=== PATIENT | female | born 1955 | race Caucasian/White ===

== ENCOUNTER 2024-02-24 19:44 | Inpatient (IN) | payer MEDICARE, OTHER, SELFPAY ==
[2024-02-24] VITALS (14 sets, daily range): BP systolic 114–146; BP diastolic 63–133; BMI 36.6
--- NOTE | 2024-02-24 15:31 | ED.GENMED ---
History of Present Illness
General
Chief Complaint: Fatigue
Source: patient
Exam Limitations: none
Time Seen by Provider: 02/24/24 15:08
Nursing documentation reviewed up to this point in time: agreed with
Travel History
Have you had any contact with someone who has COVID-19?: No
Do you have any symptoms of coronavirus? Fever > 100 degrees, chills, cough, shortness of breath, sore throat, loss of taste or smell, muscle aches, or headache?: No
History of Present Illness
History of Present Illness:
68-year-old female with past medical history of kidney stones presents to the ER for evaluation. She reports last week she had cold sweats and nausea and vomited 3 times over 24 hours. Since then she has had some nausea but was given nausea
medicine by her family doctor. She complains of feeling very exhausted and has pain rating from her right side lower rib area rating down her leg. Is not made worse or better with movement she denies any injury denies any lower extremity swelling.
She presents in the ER in rapid A-fib but denies any palpitations shortness of breath. She has no history of A-fib.
In Review of records patient was seen here July 2023 and presented with nausea abdominal pain chills and apparently had a 6 mm distal left ureteral calculus with hydro with complicated UTI infection. She did have cystoscopy and stone extraction
with stent at that time.
She denies any back pain.
Past History
Past History
ED Past Medical History: HTN
ED Past Surgical History: Orthopedic (3 months post hip fracture) and Other (bladder surgery)
Social History
Living: alone
Review of Systems
Review of Systems
All Other Systems: ROS reviewed and negative except as documented in HPI and ROS
Constitutional: Reports fatigue and chills
EENT: Reports no symptoms
Respiratory: Reports no symptoms
Cardiac: Reports no symptoms
ABD/GI: Reports nausea and vomiting
Musculoskeletal: Reports other (pain right side and right leg pain )
Skin: Reports no symptoms
Hematologic/Lymphatic: Reports no symptoms
Psychiatric: Reports no symptoms
Phy Exam
General Physical Exam
General Presentation: no apparent distress
General age: appears stated age
General Skin: warm and dry
General Habitus: normal
General Mental: alert
General Hydration: appears well hydrated
Course
Orders/Labs/Results
Orders:
Orders
02/24/24 Dinner
NPO
Allow oral meds: Yes
Allow clear liquids: Sips of Clears
NPO with Ice Chips: Yes
02/24/24 15:23
EKG [Electrocardiogram (*1)] Urgent
Reason for Study: Vertigo / Dizzy
EKG- Treatment ONCE
02/24/24 15:28
Complete Blood Count/With Diff Urgent
Comprehensive Metabolic Panel Urgent
02/24/24 15:34
0.9% Sodium Chloride 1000 ml [Nss] 1,000 ml IV BOLUS
02/24/24 15:44
Straight cath- Treatment ONCE
02/24/24 15:54
CT Abd/pel Without Iv Or Oral Urgent
Comment:
Reason For Exam: right side pain
02/24/24 15:56
Cardiac Monitoring- Treatment ONCE
0.9% Sodium Chloride 500 ml [Nss] 500 ml IV BOLUS
02/24/24 18:15
Lactic Acid Q4H
Comment: CANCEL 2nd LACTIC ACID IF 1st LACTIC ACID IS LESS THAN 2
Urinalysis Reflex To Culture Urgent
Date Specimen was Collected: 02/24/24
Time Specimen was Collected: 15:48
Urine Microscopic Reflex Cult Urgent
Blood Culture Q30M
CAYETANO Source: Blood/Venous
Specimen Description:
Blood Culture Q30M
CAYETANO Source: Blood/Venous
Specimen Description:
Urine Culture Urgent
CAYETANO Source: U
Specimen Description:
Date Specimen was Collected: 02/24/24
Time Specimen was Collected: 15:48
02/24/24 18:58
CefTRIAXone [Rocephin] 2,000 mg IV NOW STA
02/24/24 19:08
Sterile Water [Sterile Water For Injection] 20 ml .ROUTE .STK-MED
02/24/24 19:15
Gentamicin Sulfate [Gentamicin] 200 mg 0.9% Sodium Chloride [Nss] 50 ml IV NOW
02/24/24 19:28
Admit/Transfer Patient As Directed
Co-Sign Provider:
Level of Care: Inpatient admission
Assign to:: IMU- Intermediate Care
Physician / Group: Hospitalist
Diagnosis: Sepsis, infected kidney stone, new onset afib
Reason for Hospitalization: Sepsis, infected obstructing kidney stone
Expected length of stay greater than two midnights?: Yes
ELOS- Estimated Length of Stay in days: 2
I certify the patient meets the requirements for IP care: Yes
Dexamethasone Sod Phosphate [Decadron] 20 mg .ROUTE .STK-MED ONE
Lidocaine 2% [Xylocaine 2% Mdv] 20 ml .ROUTE .STK-MED ONE
Ondansetron Injectable [Zofran] 4 mg .ROUTE .STK-MED ONE
Propofol [Diprivan] 20 ml .ROUTE .STK-MED
02/24/24 19:29
Fentanyl Citrate/Pf [Sublimaze] 100 mcg .ROUTE .STK-MED ONE
Midazolam HCl [Versed] 2 mg .ROUTE .STK-MED ONE
02/24/24 19:31
Code Status As Directed
Resuscitation Status: Full Code
02/24/24 20:13
Acetaminophen [Tylenol/Feverall] 650 mg RECTAL Q4HPRN PRN
Acetaminophen [Tylenol] 650 mg PO Q4HPRN PRN
Docusate W/Senna [Senokot-S] 1 tablet PO DAILYPRN PRN
HYDROmorphone [Dilaudid] 0.5 mg IV Q4HPRN PRN
Lactated Ringers [Lr] 1,000 ml IV 75 mls/hr
Metoprolol [Lopressor] 5 mg IV Q4HPRN PRN
Ondansetron Injectable [Zofran] 4 mg IV Q6HPRN PRN
02/24/24 20:13
Echo 2D MMode Color/Doppler Routine
Reason for Study: atrial fibrillation
CARDIOLOGY CONSULT Routine
Consulting Provider: Mikhail Carey
Was physician already notified: Yes
Reason for consult: new onset afib
INFECTIOUS DISEASE CONSULT Routine
Consulting Provider: Vishal Santamaria
Was physician already notified: Yes
Activity As Directed
Activity Level: With Assistance
Intake/ Output As Directed
Frequency: Per unit guidelines
Vital Signs As Directed
Frequency: Per unit guidelines
Pulse Ox/spot Check [RESP] Routine
Quantity: 1
Special Instructions: pulse oximetry on admision then every shift if on oxygen
call if oxygen saturation < ___ %
DX Deep Vein Thrombosis Video Routine
02/24/24 21:06
Lactic Acid Q4H
Comment: repeat q4 hours x 4 or until less than 2 mmol/L
02/24/24 22:00
Diphenhydramine [Benadryl] 50 mg PO HS
02/25/24 00:13
Lactic Acid Q4H
Comment: repeat q4 hours x 4 or until less than 2 mmol/L
02/25/24 04:13
Lactic Acid Q4H
Comment: repeat q4 hours x 4 or until less than 2 mmol/L
02/25/24 06:00
Complete Blood Count/No Diff IN AM
02/25/24 08:00
Multivitamin [Theragran] 1 tablet PO DAILY
02/25/24 08:13
Lactic Acid Q4H
Comment: repeat q4 hours x 4 or until less than 2 mmol/L
02/25/24 18:00
Atorvastatin [Lipitor] 10 mg PO QPM
CefTRIAXone [Rocephin] 2,000 mg IV Q24H
Enoxaparin Sodium [Lovenox] 40 mg SC QPM
Tolterodine Extended Release [Detrol LA] 4 mg PO QPM
Abnormal Lab Results
02/24/24 02/24/24
15:28 18:15
WBC 28.5 H 10^3/uL
(4.8-10.8)
RBC 4.07 L 10^6/uL
(4.20-5.40)
Hct 36.7 L %
(37.0-47.0)
MCH 31.7 H pg
(27.0-31.0)
Abs Immat Gran (auto) 0.5 H 10^3/uL
(0-0.05)
Absolute Neuts (auto) 25.0 H 10^3/uL
(1.4-6.5)
Absolute Monos (auto) 1.1 H 10^3/uL
(0.1-0.6)
Immature Gran % 1.7 H %
(0-0.5)
Neutrophils % 87.8 H %
(42.2-75.2)
Lymphocytes % 6.1 L %
(20.5-51.1)
Sodium 131 L mmol/L
(135-145)
Potassium 3.4 L mmol/L
(3.5-5.1)
Chloride 94 L mmol/L
(98-107)
BUN 60 H mg/dl
(7-17)
Creatinine 1.4 H mg/dL
(0.6-1.0)
Glucose 139 H mg/dl
(70-99)
Calcium 10.7 H mg/dl
(8.4-10.2)
AST 44 H U/L
(14-36)
ALT 56 H U/L
(0-35)
Alkaline Phosphatase 223 H U/L
(38-126)
Albumin 3.1 L g/dl
(3.5-5.0)
Urine Ketones Trace A
(Negative)
Ur Occult Blood Reflex 2+ A
(Negative)
Urine Nitrite (Reflex) Positive A
(Negative)
Leukocyte Esterase Rfl 2+ A
(Negative)
Urine RBC 3-6 A /HPF
(0-2)
Urine WBC (Reflex) 90-100 A /HPF
(0-5)
Urine Bacteria (Reflex) Moderate A
(Negative)
02/24/24 15:28
02/24/24 15:28
Vital Signs
Initial and Last Documented VS:
Initial Vital Signs
Temp Pulse Resp BP Pulse Ox
97.7 F 83 18 145/86 96
02/24/24 13:38 02/24/24 13:38 02/24/24 13:38 02/24/24 13:38 02/24/24 13:38
Last Documented Vital Signs
Temp Pulse Resp BP Pulse Ox
97.8 F 161 20 133/76 96
02/24/24 22:07 02/24/24 21:30 02/24/24 21:30 02/24/24 21:15 02/24/24 21:30
MDM/Problems Addressed
Differential Diagnosis Includes:
Not limited to pyelonephritis renal colic UTI rapid A-fib
MDM/Problems Addressed:
Patient is 68-year-old female who presents for multiple complaints. She reports a week ago she had nausea cold sweats and since then has had fatigue and extreme exhaustion. She describes pain in the right side she points to the right side of her
abdomen below her ribs which radiates down her left leg. No injury no lower extremity swelling. She denies any UTI symptoms. Upon my exam she was found to be in rapid A-fib however asymptomatic with no complaints of palpitations or shortness of
breath chest pain. Blood pressure stable. Patient is afebrile however white count elevated at 28.5 patient appears very dry on exam.
Her BUN is 60 creatinine is 1.40 which is new GFR is 40. Lactic of blood cultures ordered. LFTs mildly elevated however patient is not tender on exam to the right upper quadrant.
No history of A-fib or cardiac disease. Patient is document was here in July 2023 for UTI with stone she had cystoscopy stone extraction and stent.
Case d/c with ED physician will treat her dehydration with fluids (septic fluids for a total of 500 ml NSS ) .
With vague complaints of right side pain will order non contrast CT .
1855: Patient remains awake alert no acute distress still tachycardic in the 130s with stable blood pressure. 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
severe perinephric fluid suggesting forniceal rupture due to a 7 mm distal right ureteral stone. She has an an obvious UTI . d/c w/ urology DR Flaherty as discussed I ordered Rocephin and gentamicin
1905: OR ready for patient at this time will send patient up urology aware that medication was ordered but not given yet.
Discussed all results and plan of care to OR with patient
Chronic conditions affecting care:
previous UTI/stone /stone extraction
*Critical Care Note
Total Time (30-74mins, 75-104mins- exclusive of procedures): Not Applicable
comment:
Critical care statement: A total of 30minutes of critical care time was provided for this patient. This includes management of unstable vital signs, evaluation of the patient at bedside, reviewing the patient's pertinent medical records, discussion
with consultants, review of old EKGs and review of pertinent medical records. This time with separate from time utilized to perform the aforementioned documented procedures
ED Attending Note
-
Portions of this chart may have been created with voice recognition software.� Occasional wrong word or��sound alike� substitutions may have occurred due to the inherent limitations of voice recognition software.
Discharge Plan
Departure
Patient Disposition: OR
Date of Disposition: 02/24/24
Time of Disposition: 19:02
Admit to: ICU
Admit to doctor: hospitalist
Presentation/result/management discussed w/ accepting MD/DO: Hospitalist
Patient with high blood pressure during this ER visit?: Yes
Condition: Fair
Covid-19: Not Applicable
Discharge Problem:
infected ureteral stone, Sepsis, Atrial fibrillation
Interventions
Interventions:
*Risk Screen - Suicide Last Done: 02/24/24 13:42
*General Assessment Last Done: 02/24/24 13:42
*Neglect/Abuse Screening Last Done: 02/24/24 13:42
ED- Fall Risk Assessment Last Done: 02/24/24 15:30
*ED COVID-19 Vaccine History Last Done: 02/24/24 13:42
*Nursing Disposition Last Done: 02/24/24 19:25
Discharge Date and Time
Discharge Date/Time: 02/24/24 19:25
[2024-02-24] MEDS: NSS 1000 IV (15:34)
[2024-02-24 15:36] LABS: % Basophils 0.5 % (0-2); % Eosinophils 0.1 % (0-6); % Immature Granulocytes 1.7 % (0-0.5); % Lymphocytes 6.1 % (20.5-51.1); % Monocytes 3.8 % (1.7-9.3); % Neutrophils 87.8 % (42.2-75.2); Absolute Basophils 0.1 10^3/uL (0-0.2); Absolute Immature Granulocytes 0.5 10^3/uL (0-0.05); Absolute Lymphocytes 1.7 10^3/uL (1.2-3.4); Absolute Monocytes 1.1 10^3/uL (0.1-0.6); Hematocrit 36.7 % (37.0-47.0); Hemoglobin 12.9 g/dL (12.0-16.0); Mean Corp Hgb Conc. 35.1 g/dL (33.0-37.0); Mean Corpuscular Hgb 31.7 pg (27.0-31.0); Mean Corpuscular Volume 90.2 fL (81.0-99.0); Mean Platelet Volume 10.3 fL (7.4-10.4); Nucleated Red Blood Cells % 0 %; Platelet Count 284 10^3/uL (130-400); Red Blood Cell Count 4.07 10^6/uL (4.20-5.40); Red Cell Dist. Width 13.3 % (11.5-14.5); White Blood Cell Count 28.5 10^3/uL (4.8-10.8)
[2024-02-24 15:50] LABS: ALT (SGPT) 56 U/L (0-35); AST (SGOT) 44 U/L (14-36); Albumin 3.1 g/dl (3.5-5.0); Alkaline Phosphatase 223 U/L (38-126); Blood Urea Nitrogen 60 mg/dl (7-17); Calcium 10.7 mg/dl (8.4-10.2); Carbon Dioxide 27 mmol/L (22-30); Chloride 94 mmol/L (98-107); Estimated Creatinine Clearance 40 ml/min; Glucose 139 mg/dl (70-99); Potassium 3.4 mmol/L (3.5-5.1); Sodium 131 mmol/L (135-145); Total Bilirubin 1.2 mg/dl (0.2-1.3); Total Protein 6.3 g/dl (6.3-8.2); eGFR 40.73
--- NOTE | 2024-02-24 16:00 | EDRN ---
the pt is currently still in Afib in the 120-140's, this RN notified the provider Bere Boss [employer] again, VS WNL, will continue to monitor the pt closely
[2024-02-24 18:29] LABS: Urine Albumin Trace (Neg - Trace); Urine Bilirubin Negative (Negative); Urine Character Slightly Cloudy (Clear); Urine Color Yellow; Urine Glucose Negative (Negative); Urine Ketone Trace (Negative); Urine Leukocyte 2+ (Negative); Urine Nitrite Positive (Negative); Urine Occult Blood 2+ (Negative); Urine Urobilinogen Negative (Neg - 1+)
[2024-02-24 18:37] LABS: Urine Squamous Cell 0-2 /LPF (Few)
[2024-02-24 18:38] LABS: Urine Bacteria Moderate (Negative); Urine White Cell 90-100 /HPF (0-5)
[2024-02-24 18:41] LABS: Lactic Acid 1.3 mmol/L (0.7-2.0)
[2024-02-24] MEDS: ROCEPHIN 2000 MG IV (19:10)
--- NOTE | 2024-02-24 19:12 | HPS.HSE ---
Family Physician
-
Family Physician: Grabiel Hernandez
Chief Complaint
-
abdominal pain with nausea
History of Present Illness
This is a 68 y.o female with history of malrotated right kidney and left nephrolithiasis who presents to ED with non specific abdominal pain and nausea. History was brief as patient going to OR.
She had episode of cold sweats, nausea and vomited 3 times in the last 24 hours. Feels exhausted. Found to be in atrial fibrillation on arrival in ED but denies any prior history. Denies lightheaded, dizziness, palpitations. Denies any lower
extremity swelling, shortness of breath or dyspnea on exertion. She takes aspirin prophylactically but denies prior history of CAD or CVA.
She is known to have had a 6 mm distal left ureteral calculus with complicated UTI in Jul 2023 with cystoscopy and stone extraction.
In ED she was in rapid atrial fibrillation but hemodynamically stable. She was afebrile, BP 136/71, p 141, R 16 and normal oxygenation on RA. ECG, afib R 141. No acute ischemia. CT A/P with moderate right hydronephrosis and severe perinephric
fluid suggesting forniceal rupture due to a 7 mm distal right ureteral stone. Possible atelectasis vs lower lobe PNA. Marked leukocytosis and positive U/A.
Medical History
Past Medical History
Past Medical History: Reports HTN
Past Surgical History: Reports Urological
Social History
Tobacco: Non-smoker
Alcohol: None
Drug: None
Personal:
Living: With Family
Employment: Employed
Family History
Family History: Not pertinent
Allergies / Home Medications
Allergies reflects when Allergies were last updated in [employer].
Home Medications with original date entered in [employer]
Allergy/Medication List:
Allergies
Allergy/AdvReac Type Severity Reaction Status Date / Time
sulfamethoxazole Allergy dizzy Verified 02/24/24 13:44
[From Bactrim]
trimethoprim [From Bactrim] Allergy dizzy Verified 02/24/24 13:44
Home Medications
calcium carbonate 600 mg-vitamin D3 5 mcg (200 unit) capsule (Calcium 600 + D(3)) 1 ea PO BID Supplement 11/12/11
flaxseed oil 1,000 mg capsule 1,000 mg PO QPM Supplement 11/12/11
simvastatin 20 mg tablet 20 mg PO QPM High Cholesterol 11/12/11
Lactobac no.2-Bifidobac no.1-S. thermo 112.5 billion cell capsule (Visbiome) 1 cap PO DAILY Supplement 08/05/23
ascorbic acid (vitamin C) 500 mg tablet (Vitamin C With Bety Hips) 500 mg PO BID Supplement 08/05/23
aspirin 81 mg tablet,delayed release 81 mg PO QPM Blood Clot Prevention/Tx 08/05/23
cranberry extract 650 mg capsule (Theracran) 650 mg PO DAILY Supplement 08/05/23
darifenacin 15 mg tablet,extended release 24 hr 15 mg PO QPM Urinary Issue 08/05/23
diphenhydramine HCl 25 mg tablet (Sominex) 12.5 mg PO HS Sleep 08/05/23
estradiol 0.01% (0.1 mg/gram) vaginal cream 1 g vaginal TUSA Hormonal Agent 08/05/23
glucosamine-chondroitin 500 mg-400 mg tablet (Cosamin DS) 1 tab PO QPM Supplement 08/05/23
hydrochlorothiazide 50 mg tablet 50 mg PO DAILY Blood Pressure 08/05/23
therapeutic multivitamin 1 tab PO DAILY Supplement 08/05/23
levofloxacin 750 mg tablet 750 mg PO DAILY #5 tabs 08/06/23
phenazopyridine 200 mg tablet (Pyridium) 200 mg PO TID PRN urinary pain #14 tabs 08/06/23
Review of Systems
-
History Source: Patient
Constitutional: Reports Night Sweats and Chills
EENT: Reports No Symptoms
Respiratory: Reports No Symptoms
Cardiac: Reports No Symptoms
Abdomen/GI: Reports Abdominal Pain, Nausea and Vomiting
: Reports Dysuria
Musculoskeletal: Reports No Symptoms
Skin: Reports No Symptoms
Neurological: Reports No Symptoms
Endocrine: Reports No Symptoms
Hematologic/Lymphatic: Reports No Symptoms
Psych: Reports No Symptoms
Physical Exam
Vital Signs
Vital Signs
Temp Pulse Resp BP Pulse Ox
97.1 F 153 25 138/116 92
02/24/24 17:09 02/24/24 19:00 02/24/24 19:00 02/24/24 19:00 02/24/24 18:45
Physical Exam
General: Well Developed, Well Nourished, Comfortable and Conversant
HEENT: NormoCephalic, Anicteric and Moist mucous membranes
Respiratory: Clear
Cardiac: S1/S2, Irregular Rhythm and Tachycardia
Breast: Deferred by me
GI: Soft, Non Distended and Normal Bowel Sounds
Rectal: Deferred by Provider
Genito-urinary: Deferred by me
Musculoskeletal: No Clubbing, No Cyanosis and No Edema
Skin: Warm
Neuro: AO x 3
Hematologic/Lymphatic: No Lymphadenopathy
Psych: Calm
Laboratory Results
-
02/24/24 15:28
02/24/24 15:28
Laboratory Results
Lactic Acid 1.3 mmol/L (0.7-2.0) 02/24/24 18:15
Total Bilirubin 1.2 mg/dl (0.2-1.3) 02/24/24 15:28
AST 44 U/L (14-36) H 02/24/24 15:28
ALT 56 U/L (0-35) H 02/24/24 15:28
Alkaline Phosphatase 223 U/L (38-126) H 02/24/24 15:28
Data Reviewed
-
CT Scan: Report Reviewed by me
Medical Tests (Nuc Med, Echo, EKG etc): Image Personally Visualized and interpreted and Report Reviewed by me
Lab Data: Labs Reviewed by me
Old Records: Reviewed
Impression/Plan
-
IMPRESSION:
PLAN:
1. Right [id number] - Recurrent nephrolithiasis complicated by infection and possible forniceal rupture. Sepsis with uncontrolled afib, lactic acidosis and marked leukocytosis. Currently hemodynamically stable. Urology aware and
patient is going to OR from ED.
- admitting to IMU post operatively
- s/p 1.5 L resuscitation in Ed. Will give an additional 1 L bolus
- blood and urine cultures sent, given ceftiaxone/gentamycin in ED. Will continue Ceftriaxone 2g daily for now. ID consultation
- npo for now, maintenance fluid post or, advance diet in am
- monitor I/O
2. Sepsis - Urosepsis as above. Possible atelectasis vs PNA on CT scan. However patient without pulmonary symptoms.
- continue IV ceftriaxone as above
- incentive spirometry and pain control
3. Uncontrolled atrial fibrillation - No prior history. [id number] = 3.
- suspected induced by sepsis. Resuscitation as above. IV fluids, antibiotics as stated as above
- rate control with IV metoprolol for now, start on IV diltiazem if rapid post operatively and remains hemodynamically stable (d/w cardiology)
- echo in am
- cardiology consult
- holding AC pending surgical procedure
4. ROSALINA - sepsis, mild r sided hydro
- monitor i/o and cr, avoid nephrotoxins
- correction of sepsis as above
While off AC DVT PPX with lovenox sq
Full Code
--- NOTE | 2024-02-24 20:09 | W.IMMPOSTOP ---
Surgical Immed Post Op Note
-
Primary Surgeon:
Reynold
Pre-op Diagnosis: right ureteral stone + sepsis + pelvic kidney
Post-op Diagnosis: same
Procedure Performed: cysto, stone manipulation, stenting, RGP
Anesthesia Type: gen
Specimen / Cultures: none
Estimated Blood Loss: none
Complications: none
Operative Findings: distal right ureteral stone/right hydroureteronephrosis/pelvic kidney
Tubes: 6 Fr 20 cm right JJ ureteral stent; Cooper
sister, Faisal, alerted via phone post-op
[2024-02-24] MEDS: GENTAMICIN 55 MG IV (20:31)
[2024-02-24 21:26] LABS: Lactic Acid 1.6 mmol/L (0.7-2.0)
[2024-02-24] MEDS: LR 1000 IV (21:31)
[2024-02-24] MEDS: NSS 250 IV (21:57)
[2024-02-24] MEDS: ZOFRAN 4 MG IV (21:58)
--- NOTE | 2024-02-24 22:00 | PTCARENOTE ---
Rec'd pt from OR s/p ureteral stenting, drowsy but arousable and conversive. No c/o pain. YOUNG. Oriented/cooperative. Afebrile, AFIB 130-150 on monitor. New order noted for Cardizem gtt and 500ml NSS bolus. PIV X1. 3L nc, 97%. When off O2, pt desat
88%. Decreased breath sounds. Pt vomited upon arrival to ICU, Zofran given with relief. 18F laurent from OR, draining clear yellow urine. Pt states TUBE CUTTER pessary is in place and was changed in December/January. No skin issues. Oriented to ICU. Will monitor.
[2024-02-24] MEDS: CARDIZEM 125 IV (22:01)
[2024-02-24] MEDS: BENADRYL 50 MG PO (23:55)
[2024-02-25] VITALS (24 sets, daily range): BP systolic 94–150; BP diastolic 52–94; BMI 36.7
[2024-02-25 02:27] LABS: Hematocrit 33.9 % (37.0-47.0); Hemoglobin 12.2 g/dL (12.0-16.0); Mean Corpuscular Hgb 31.9 pg (27.0-31.0); Mean Corpuscular Volume 88.5 fL (81.0-99.0); Platelet Count 300 10^3/uL (130-400); Red Blood Cell Count 3.83 10^6/uL (4.20-5.40); Red Cell Dist. Width 13.7 % (11.5-14.5); White Blood Cell Count 29.4 10^3/uL (4.8-10.8)
--- NOTE | 2024-02-25 02:30 | PTCARENOTE ---
Pt c/o chest pain unable to rate. Unsure iif related to hiccups she was having. Troponin <0.012, EKG in chart. Will monitor.
[2024-02-25 02:45] LABS: INR 1.27; PT 15.8 Sec (11.4-14.6)
[2024-02-25 02:47] LABS: Blood Urea Nitrogen 46 mg/dl (7-17); Calcium 9.3 mg/dl (8.4-10.2); Carbon Dioxide 26 mmol/L (22-30); Chloride 101 mmol/L (98-107); Estimated Creatinine Clearance 56 ml/min; Glucose 150 mg/dl (70-99); Potassium 3.4 mmol/L (3.5-5.1); Sodium 134 mmol/L (135-145); eGFR > 60.00
[2024-02-25 02:52] LABS: Troponin I < 0.012 ng/ml
[2024-02-25 03:18] LABS: TSH Reflex To Free T4 0.88 uIU/ml (0.47-4.68)
[2024-02-25] MEDS: ZOFRAN 4 MG IV (04:30)
--- NOTE | 2024-02-25 04:52 | PTCARENOTE ---
Pt vomiting dark brown/green unmeasurable amount, estimated about 250-300ml, along with intermittent hiccups overnight. Pt states she has not had a BM since one week ago 'last Tuesday'. Zofran given IV as ordered PRN. Will follow up with provider
regarding bowel program/suppository.
[2024-02-25] MEDS: KCL 260 MEQ IV (06:41)
--- NOTE | 2024-02-25 06:42 | W.PN.URO.CBU ---
Today's Communication / Plan
-
keep Cooper while Is&Os are of paramount importance
Assessment / Plan
-
critically ill, but improving
Diagnosis
-
Date of Service: February 25, 2024
-
Patient Diagnosis:
Right ureteral stone: 7 mm, obstructing
Urosepsis
emergently to OR to alleviate obstruction by placement of a right ureteral stent on 02/24/24 ~ 730 PM
Post Op Day: 1
Subjective
-
asleep
Objective
-
Vital Signs
Temp Pulse Resp BP Pulse Ox
97.7 F 106 17 117/76 96
02/25/24 03:26 02/25/24 06:15 02/25/24 06:15 02/25/24 05:45 02/25/24 06:15
Intake and Output
02/23/24 02/24/24 02/25/24
06:59 06:59 06:59
Intake Total 2065.0 / 2065.0
Output Total 700 / 700
Balance 1365.0 / 1365.0
Intake:
IV fluids (Total) 2015.0 / 2015.0
CARDIZEM 125mg/125ml 115.0 / 115.0
NORMAL SALINE 1300 / 1300
Normosal 600 / 600
IV piggybacks 50 / 50
Output:
Urine, Cooper 700 / 700
Laboratory Results
02/25/24 02:16
02/25/24 02:16
Physical Exam
-
General - no acute distress; asleep sitting in bed
Genitalia - Cooper
--- NOTE | 2024-02-25 07:51 | CON.ID ---
Consultation
-
Date/Time Consultation Requested: 02/24/20242012
Date/Time Consultation Performed: 02/25/2024 0721
Requesting Provider: Dr. Rosenthal
Performing Provider: Dr. Santamaria
Reason for Consultation: Leukocytosis; complicated UTI
Chief Complaint / Past History
History of Present Illness
Elsie Bañuelos is a 68-year-old female being evaluated regarding a complicated urinary tract infection with obstructive uropathy. History is obtained from chart review, along with patient interview.
The patient reports a prior history of nephrolithiasis and notes that she was in her usual state of health until approximately 9 to 10 days ago when she developed acute onset of sweats, extreme nausea and some right leg discomfort. She called her
PCP and received some nausea medicine which helped, but did make her drowsy. Over the subsequent week she continued to do fair, but yesterday her sister came by and saw her and advised her to go to the emergency room for further evaluation.
Workup in the emergency room revealed a significant leukocytosis, along with ROSALINA and a transaminitis. A CT of the abdomen was performed and revealed an malrotated right kidney with moderate hydronephrosis and fluid surrounding the kidney suggesting
a forniceal rupture. A 7 mm distal ureteral stone was also noted. The patient was taken to the OR, and a double-J stent was placed.
Currently she is feeling somewhat improved. Over the past week, she denies significant fevers, but has had the ongoing discomfort in the right leg area. She denied any dysuria or hematuria she did admit to significant constipation.
Past History
Additional Past Medical History:
HTN
Dyslipidemia
Pelvic organ prolapse with pessary
Hx UTI
Additional Past Surgical History:
Right femur judith placement
Bladder surgery
Allergy History:
sulfamethoxazole [From Bactrim] Allergy (Verified 02/24/24 13:44)
'dizzy'
Medications Reviewed: Yes
Current Antibiotics:
Rocephin 2 g IV every 24 hours
Social History
Tobacco: Non-Smoker
Alcohol: None
Drug: None
Personal: Single
Living: Alone
Employment: Retired
Family History
Family History: Not Pertinent
Review of Systems
Vital Signs
Temp Pulse Resp BP Pulse Ox
97.7 F 106 17 117/76 96
02/25/24 07:51 02/25/24 06:15 02/25/24 06:15 02/25/24 05:45 02/25/24 06:15
Physical Exam
Physical Exam
Constitutional: No Acute Distress, Comfortable and Non-toxic
Eyes: Pupils Equal, Pupils Round, No Conjunctival Hemorrhage and Sclera Anicteric
Oral: No Thrush and No Ulcers
Cardiovascular: S1/S2; Negative S3/S4 or Murmur
Pulmonary: Clear; Negative Wheezes, Rales or Rhonchi
Gastrointestinal: Soft, Non Tender and Non Distended
Extremities: Edema; Negative Cyanosis or Erythema
Skin: Warm and Dry; Negative Rash or Jaundice
Neurological: Awake and Alert
Psychological: Calm
.
Lab / Diagnostic Study Results
02/25/24 02:16
02/25/24 02:16
Abs Immat Gran (auto) 0.5 10^3/uL (0-0.05) H 02/24/24 15:28
Absolute Neuts (auto) 25.0 10^3/uL (1.4-6.5) H 02/24/24 15:28
Absolute Lymphs (auto) 1.7 10^3/uL (1.2-3.4) 02/24/24 15:28
Absolute Monos (auto) 1.1 10^3/uL (0.1-0.6) H 02/24/24 15:28
Absolute Basos (auto) 0.1 10^3/uL (0-0.2) 02/24/24 15:28
Immature Gran % 1.7 % (0-0.5) H 02/24/24 15:28
Neutrophils % 87.8 % (42.2-75.2) H 02/24/24 15:28
Lymphocytes % 6.1 % (20.5-51.1) L 02/24/24 15:28
Monocytes % 3.8 % (1.7-9.3) 02/24/24 15:28
Eosinophils % 0.1 % (0-6) 02/24/24 15:28
Basophils % 0.5 % (0-2) 02/24/24 15:28
PT 15.8 Sec (11.4-14.6) H 02/25/24 02:16
INR 1.27 02/25/24 02:16
Lactic Acid Cancelled 02/25/24 08:13
Ur Squamous Epith Cells 0-2 /LPF (Few) 02/24/24 18:15
Microbiology Results
Micro:
02/24/24 18:15 Urine Culture - Pending
Urine
02/24/24 18:15 Blood Culture - Pending
Blood/Venous
02/24/24 18:15 Blood Culture - Pending
Blood/Venous
Imaging:
02/24/2024 CT abdomen/pelvis: Moderate right hydronephrosis and severe perinephric fluid suggesting forniceal rupture due to a 7 mm distal right ureteral stone. Many additional tiny nonobstructing right renal stones are noted. A subcentimeter
hypodense left renal lesion is likely benign proteinaceous cyst. Moderate right lower lobe consolidation suggesting either atelectasis or pneumonia.
Assessment / Plan
Leukocytosis
Complicated urinary tract infection
Suspected pyelonephritis
Obstructive uropathy
Renal insufficiency; improved
Transaminitis
HTN
Dyslipidemia
Pelvic organ prolapse with pessary
Hx UTI
Recommendations:
Continue with empiric ceftriaxone for today.
Urine cultures are pending, as are blood cultures; will await results.
Monitor white count and temperature curve.
Follow for clinical improvement.
Repeat blood cultures for temperature greater than 100.5 degrees.
Continue supportive measures.
--- NOTE | 2024-02-25 07:59 | W.PN.HOSP.TC ---
Today's Communication/Plan
-
Continue Cardizem Drip -- it it needs to be titrated overnight, then transfer back to IMU
Continue antibiotics
Continue Heparin Drip
Transfer to telemetry
Assessment / Plan
Assessment / Plan
Physical Exam
General: Not in acute distress.
HEENT: Normocephalic
Respiratory: Clear to Auscultation Bilaterally
Cardiac: S1/S2, Irregular Rhythm and Regular Rate
GI: Soft, Non Distended and Normal Bowel Sounds
Musculoskeletal: No Cyanosis and No Edema
Skin: Warm. Dry.
Neuro: AAO x 3
Psych: Calm

Assessment/Plan
#Presentation with non-specific abdominal pain and nausea
#Right efjef-mpmwvm-ladvomeljqny - status post cystoscopy with manipulation of obstructing right ureteral calculus, right ureteral stenting (6-Amharic, 20 cm) and right retrograde pyelography on February 24, 2024
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
- Okay to transfer from IMU to tele
- blood and urine cultures sent -- follow-up
- monitor I/O
#Sepsis - Urosepsis as above. Possible atelectasis vs PNA on CT scan. However patient without pulmonary symptoms.
#Complicated Urinary Tract Infection
#History of complicated UTI with pyelonephritis and left distal stone with stent and extraction
#Leukocytosis
#Lactic Acidosis - RESOLVED
- continue IV ceftriaxone as above
- incentive spirometry and pain control
#Uncontrolled atrial fibrillation - No prior history. [id number] = 3.
- suspected induced by sepsis. Resuscitation as above. IV fluids, antibiotics as stated as above
- continue cardizem drip -- for now non-titratable is okay but if it needs to be titrated, then patient will need to be transferred back to IMU
- echocardiogram
- cardiology consult
- Heparin Drip for the A-Fib for now
- Will transition to PO anticoagulation and rate control soon
#ROSALINA - sepsis, mild r sided hydro - IMPROVING
- monitor i/o and cr, avoid nephrotoxins
- correction of sepsis as above
DVT PPx: Heparin Drip
Full Code
Anticipated Discharge: 24 - 48 hours
Subjective/Interval History
-
Date of Service: February 25, 2024
Patient was seen and examined. She reported no new significant symptoms or complaints.
Objective Data
-
Labs:
Laboratory Results
02/25/24
02:16
WBC 29.4 H
Hgb 12.2
Hct 33.9 L
Plt Count 300
PT 15.8 H
INR 1.27
Sodium 134 L
Potassium 3.4 L
Chloride 101
Carbon Dioxide 26
BUN 46 H
Creatinine 1.0
Glucose 150 H
Calcium 9.3
Vital Signs:
Vital Signs
Temp Pulse Resp BP Pulse Ox
97.7 F 106 17 117/76 96
02/25/24 07:51 02/25/24 06:15 02/25/24 06:15 02/25/24 05:45 02/25/24 06:15
I&O
02/24/24 02/25/24 02/26/24
06:59 06:59 06:59
Intake Total 2065.0 / 2065.0
Output Total 700 / 700
Balance 1365.0 / 1365.0
[2024-02-25] MEDS: THERAGRAN 1 TABLET PO (08:36)
[2024-02-25] MEDS: DULCOLAX 10 MG RECTAL (08:36)
--- NOTE | 2024-02-25 09:00 | PTCARENOTE ---
Received pt @ change of shift. Ox3, denies pain. Controlled afib on monitor. Weaned to RA, SpO2 95%, no s/s of resp distress. +BS, abd round/obese. NPO status maintained. Pt. reports constipation, admin suppos- see MAR. Pt w cont small BM. Cooper in
place draining clear/yellow urine. Assisted x 1 w RW to BSC and then OOB to chair. Tolerating chair position. Instructed on how to report care concerns and call house in reach.
[2024-02-25] MEDS: LR 1000 IV ×2 (09:42→23:55)
[2024-02-25 10:53] LABS: Hematocrit 32.9 % (37.0-47.0); Hemoglobin 11.4 g/dL (12.0-16.0); Mean Corp Hgb Conc. 34.7 g/dL (33.0-37.0); Mean Corpuscular Hgb 31.7 pg (27.0-31.0); Mean Corpuscular Volume 91.4 fL (81.0-99.0); Mean Platelet Volume 10.8 fL (7.4-10.4); Platelet Count 241 10^3/uL (130-400); Red Cell Dist. Width 13.6 % (11.5-14.5); White Blood Cell Count 27.4 10^3/uL (4.8-10.8)
--- NOTE | 2024-02-25 11:43 | CON.CAR ---
Addendum entered and electronically signed by Mikhail Carey MD 02/25/24 13:51:
68 yo female with PMH of HTN, hyperlipidemia, prior kidney stone is admitted with obstructing right ureteral stone, s/p emergent stent placement 02/23. Also UTI. In this setting, she developed A fib with RVR. Exam with irregular rhythm, no murmurs,
no edema. Tele: A fib 120s-->80-90s.
Continue diltiazem drip at 15. Assess for transition to PO tomorrow.
CHADS2-VASC = 3. Discussed with urology. Heparin drip started today. Eventual transition to OAC: she prefers Xarelto.
Original Note:
Consultation
Consultation Request
Date/Time Consultation Requested: 02/25/2024 0800
Date/Time Consultation Performed: 02/25/2024 1100
Requesting Provider: Dr. Rosenthal
Performing Provider: Dr. Carey
Reason for Consultation: AF
Medical History
-
Chief Complaint: Nausea, abdominal pain, leg pain
History of Present Illness:
Patient is a 68-year-old woman with past medical history of hypertension, hyperlipidemia,prior kidney stones per her report who presented to the emergency room for evaluation of episodes of cold sweats and nausea which she had been having for
approximately 1 week. It had worsened over the last 24 hours. She also was having issues of feeling exhausted and pain in her right side which would radiate down her leg. In the emergency room she was noted to be in atrial fibrillation with RVR.
She had denied chest pain or shortness of breath at that time. This has been treated with IV diltiazem. She has no prior history of atrial fibrillation.Workup for her abdominal pain revealed a right ureteral stone 7 mm which was obstructing.
There was concern for urosepsis as well. She was emergently taken to the OR to alleviate obstruction with placement of a right ureteral stent. Prior to her acute illness she denies any chest pain shortness of breath or palpitations.
Past Medical History
Past Medical History: Other (History of right pelvic kidney, hypertension, hyperlipidemia, prior kidney stone)
Past Surgical History: Urological (prior kidney stones )
Social History
Tobacco: Non-Smoker
Drug: None
Family History
Family History: Reviewed & Not Pertinent
Allergies / Home Medications
Allergy/AdvReac Type Severity Reaction Status Date / Time
sulfamethoxazole Allergy dizzy Verified 02/24/24 13:44
[From Bactrim]
trimethoprim [From Bactrim] Allergy dizzy Verified 02/24/24 13:44
�Medication �Instructions �Recorded �Confirmed �Type
calcium carbonate 600 mg-vitamin 1 ea PO BID Supplement 11/12/11 02/24/24 History
D3 5 mcg (200 unit) capsule
(Calcium 600 + D(3))
flaxseed oil 1,000 mg capsule 1,000 mg PO QPM Supplement 11/12/11 02/24/24 History
simvastatin 20 mg tablet 20 mg PO QPM High Cholesterol 11/12/11 02/24/24 History
Lactobac no.2-Bifidobac no.1-S. 1 cap PO DAILY Supplement 08/05/23 02/24/24 History
thermo 112.5 billion cell capsule
(Visbiome)
ascorbic acid (vitamin C) 500 mg 500 mg PO BID Supplement 08/05/23 02/24/24 History
tablet (Vitamin C With Bety Hips)
aspirin 81 mg tablet,delayed 81 mg PO QPM Blood Clot 08/05/23 02/24/24 History
release Prevention/Tx
darifenacin 15 mg tablet,extended 15 mg PO QPM Urinary Issue 08/05/23 02/24/24 History
release 24 hr
estradiol 0.01% (0.1 mg/gram) 1 g vaginal TUSA Hormonal Agent 08/05/23 02/24/24 History
vaginal cream
glucosamine-chondroitin 500 mg-400 1 tab PO QPM Supplement 08/05/23 02/24/24 History
mg tablet (Cosamin DS)
hydrochlorothiazide 50 mg tablet 50 mg PO DAILY Blood Pressure 08/05/23 02/24/24 History
therapeutic multivitamin 1 tab PO DAILY Supplement 08/05/23 02/24/24 History
diphenhydramine HCl 50 mg capsule 50 mg PO HS 02/24/24 02/24/24 History
(Unisom SleepGels)
docusate sodium 100 mg capsule 100 mg PO DAILY PRN constipation 02/24/24 02/24/24 History
ibuprofen 125 mg-acetaminophen 250 2 tab PO Q6H mild pain 02/24/24 02/24/24 History
mg tablet (Dual Action Pain
Reliever)
polyethylene glycol 3350 17 gram 17 g PO ONCE 02/24/24 02/24/24 History
oral powder packet (Miralax)
Review of Systems
-
History Source: Patient
Constitutional: No Symptoms
EENT: No Symptoms
Respiratory: No Symptoms
Cardiac: No Symptoms
Abdomen/GI: Abdominal Pain (some R side discomfort)
Musculoskeletal: Muscle Pain (occ R leg discomfort)
Neurological: No Symptoms
Physical Exam
Vital Signs
Temp Pulse Resp BP Pulse Ox
97.7 F 106 17 117/76 96
02/25/24 07:51 02/25/24 06:15 02/25/24 06:15 02/25/24 05:45 02/25/24 06:15
Lab Results
02/25/24 10:40
02/25/24 02:16
Troponin I < 0.012 ng/ml 02/25/24 02:16
Physical Exam
General: Well Developed, Well Nourished and No Apparent Distress
HEENT: Normocephalic
Respiratory: Clear
Cardiac: S1/S2 and Irregular Rhythm
GI: Soft and Non Tender
Genito-urinary: Clear Urine (laurent with clear yellow urine)
Musculoskeletal: No Edema
Skin: Warm and Dry
Neuro: AO x 3
Impression / Plan
-
New onset atrial fibrillation RVR:
-Currently rate controlled on IV diltiazem which we will continue.
-[id number] score is 3. Would initiate Eliquis when stable from surgical procedure.
-Eventual echo
right ureteral stone status post placement of right ureteral stent on 02/24/2024:
-Urology following
Hypertension:
-Stable. On outpatient antihypertensives. Monitor blood pressures and add back as needed.
Hyperlipidemia:
-On statin therapy
ROSALINA:
-
Improving postprocedure.
Data Reviewed
-
EKG: Tracing Personally Visualized and interpreted (EKG from 02/25/2020 for atrial fibrillation with RVR to [address] abnormality. Reviewed by me.) and Other (tele AF 80's )
Labs: Labs Reviewed by me and Discussed with Physician
[2024-02-25 12:05] LABS: APTT 23.7 Sec (23.4-35.0)
[2024-02-25] MEDS: HEPARIN 25000 UNITS/250 ML IV (12:40)
[2024-02-25] MEDS: CARDIZEM 125 IV ×2 (13:59→23:54)
--- NOTE | 2024-02-25 14:30 | PTCARENOTE ---
Heparin gtt initiated per orders- see flow sheet. Diet advanced and pt. tolerating, no n/v thus far. Pt. remains OOB to chair w call house in reach.
--- NOTE | 2024-02-25 16:46 | CHAP ---
Ms. Bañuelos said she's doing a lot better today. She was finding it a bit difficult to talk, so we kept the visit short. Emotional and spiritual support provided.
[2024-02-25] MEDS: FLUSH (NSS) 1 FLUSH IV ×2 (17:04→17:09)
[2024-02-25] MEDS: STERILE WATER FOR INJECTION 20 ML IV (17:04)
[2024-02-25] MEDS: DETROL LA 4 MG PO (17:05)
[2024-02-25] MEDS: LIPITOR 10 MG PO (17:05)
[2024-02-25] MEDS: ROCEPHIN 2000 MG IV (17:05)
[2024-02-25 18:22] LABS: APTT 37.2 Sec (23.4-35.0)
--- NOTE | 2024-02-25 18:30 | PTCARENOTE ---
Pt received from ICU via bed. Transport was w/o incident. Pt is AAOx3, HR irreg. Pt is in AFib on the Monitor. Lungs are clear, resp. easy. Pt with Heparin drip infusing in left wrist at 1000 units/10mls per hour. Right wrist with LR infusing at
75mls/hr and Right AC w/Cardizem drip infusing at 15mls/hr. VSS, Pt is afebrile. Pt instructed on plan of care. Call house is within reach.
[2024-02-25] MEDS: BENADRYL 50 MG PO (21:20)
[2024-02-26] VITALS (7 sets, daily range): BP systolic 122–159; BP diastolic 65–88
[2024-02-26 01:47] LABS: APTT 44.8 Sec (23.4-35.0)
[2024-02-26] MEDS: ZOFRAN 4 MG IV ×3 (08:03→20:40)
[2024-02-26] MEDS: CARDIZEM 125 IV (08:04)
[2024-02-26] MEDS: THERAGRAN PO (08:04)
[2024-02-26] MEDS: HEPARIN 25000 UNITS/250 ML IV (08:19)
--- NOTE | 2024-02-26 08:25 | PTCARENOTE ---
Pt noted to have dark red blood with a small clot in the commode after attempting to have a BM. NO BM at this time. Pt did admit to staining while on the commode. Heme test positive. Hemorrhoid observed on exam. Pt denies dizziness/lightheaded. VSS.
Dr Canada made aware. Care ongoing.
--- NOTE | 2024-02-26 08:48 | W.PN.URO.CBU ---
Today's Communication / Plan
-
Depending on clinical progress, when infection has been minimized, patient will be returned to OR to remove the right ureteral stone
Assessment / Plan
-
Proteus urosepsis
Obstructing right ureteral stone [presumed struvite composition] -- alleviated by stent
critically ill, persistent leukocytosis, but improving
Diagnosis
-
Date of Service: February 26, 2024
-
Patient Diagnosis:
Right ureteral stone: 7 mm, obstructing
Urosepsis -- Proteus
emergently to OR to alleviate obstruction by placement of a right ureteral stent on 02/24/24 ~ 730 PM
Post Op Day: 2
Subjective
-
'I feel nauseated today.'
Objective
-
Vital Signs
Temp Pulse Resp BP Pulse Ox
98.6 F 105 18 122/74 92
02/26/24 07:50 02/26/24 07:50 02/26/24 07:50 02/26/24 07:50 02/26/24 07:50
Intake and Output
02/25/24 02/26/24 02/27/24
06:59 06:59 06:59
Intake Total 2064.0 / 2180.0 2089
Output Total 700 / 775 1500 / 1500
Balance 1365.0 / 1405.0 590 / 590
Intake:
IV fluids (Total) / 2129.0 2089
CARDIZEM 125mg/125ml 115.0 / 130.0 180 / 180
Lr 1,000 ml @ 75 mls/hr IV . 750 / 750
[id number] SHEILA Rx#:[id number]
NORMAL SALINE 1300 / 1400 200 / 200
Normosal 600 / 600
heparin 60 / 60
IV piggybacks 50 / 50
Output:
Urine, Cooper 700 / 775 950 / 950
Urine, Voided 550 / 550
Laboratory Results
02/25/24 10:40
Urine cx: proteus
Physical Exam
-
General - up in bedside lounger; no acute distress but appears tired and ill
Neuro - AOx3, no motor deficits
Extremities - no clubbing, no cyanosis, no edema
Care Review
Data Reviewed
Discussed with: Other (patient)
[2024-02-26 09:25] LABS: Blood Urea Nitrogen 38 mg/dl (7-17); Calcium 9.2 mg/dl (8.4-10.2); Carbon Dioxide 25 mmol/L (22-30); Chloride 104 mmol/L (98-107); Estimated Creatinine Clearance 62 ml/min; Glucose 127 mg/dl (70-99); Potassium 3.1 mmol/L (3.5-5.1); Sodium 135 mmol/L (135-145); eGFR > 60.00
[2024-02-26 09:35] LABS: APTT 51.2 Sec (23.4-35.0)
[2024-02-26] MEDS: COMPAZINE 5 MG IV (09:39)
--- NOTE | 2024-02-26 11:13 | CM ---
Reviewed the chart notes and spoke with the patient at the bedside. The patient resides alone in a one story home with one step to enter. Per patient, no DME. The patient has has VN in past, but could not recall the name of the agency. The
patient has been to [facility] in the past. The patient uses [facility] [address] [facility] for emergent medications. CM continues to be available to patient/family and is monitoring medical plan for needs at discharge.
Plan: Discharge to home when medically stable.
--- NOTE | 2024-02-26 14:32 | W.PN.ID1 ---
Date of Service
Date of Service: February 26, 2024
Today's Communication
Continue antibiotics. Transition to ampicillin.
Assessment / Plan
Leukocytosis
Complicated urinary tract infection 2* Proteus.
Suspected pyelonephritis
Obstructive uropathy
Renal insufficiency; improved
Transaminitis
HTN
Dyslipidemia
Pelvic organ prolapse with pessary
Hx UTI
Recommendations:
Urine culture with Proteus mirabilis. Will narrow to ampicillin 2 g IV every 6 hours.
Monitor white count and temperature curve.
Follow for clinical improvement.
Repeat blood cultures for temperature greater than 100.5 degrees.
Continue supportive measures.
Chief Complaint
-: Leukocytosis and UTI
Subjective / Review of Systems
Review of Systems: No Fever, No Chills and Nausea
Vital Signs / Physical Exam
Vital Signs
Vital Signs
Temp Pulse Resp BP Pulse Ox
97.9 F 101 18 140/65 93
02/26/24 11:15 02/26/24 11:15 02/26/24 11:15 02/26/24 11:15 02/26/24 11:15
Physical Exam
Constitutional: No Acute Distress and Comfortable
Eyes: No Conjunctival Hemorrhage and Sclera Anicteric
Cardiovascular: S1/S2; Negative S3/S4
Pulmonary: Non Labored
Extremities: Negative Cyanosis or Erythema
Neurological: Awake and Alert
Psychological: Calm
Objective Data
Lab Data
Lab Results
02/25/24 10:40
02/26/24 08:51
PT 15.8 Sec (11.4-14.6) H 02/25/24 02:16
INR 1.27 02/25/24 02:16
APTT 51.2 Sec (23.4-35.0) H 02/26/24 08:51
Estimated Creat Clear 62 ml/min 02/26/24 08:51
Lactic Acid Cancelled 02/25/24 08:13
Total Bilirubin 1.2 mg/dl (0.2-1.3) 02/24/24 15:28
AST 44 U/L (14-36) H 02/24/24 15:28
ALT 56 U/L (0-35) H 02/24/24 15:28
Alkaline Phosphatase 223 U/L (38-126) H 02/24/24 15:28
Most recent labs reviewed.
Micro Results:
02/24/24 18:15 Urine Culture - Final
Urine Proteus mirabilis
02/24/24 18:15 Blood Culture - Preliminary
Blood/Venous No Growth in 24 hours- Final report to follow
02/24/24 18:15 Blood Culture - Preliminary
Blood/Venous No Growth in 24 hours- Final report to follow
Imaging:
02/24/2024 CT abdomen/pelvis: Moderate right hydronephrosis and severe perinephric fluid suggesting forniceal rupture due to a 7 mm distal right ureteral stone. Many additional tiny nonobstructing right renal stones are noted. A subcentimeter
hypodense left renal lesion is likely benign proteinaceous cyst. Moderate right lower lobe consolidation suggesting either atelectasis or pneumonia.
[2024-02-26 16:10] LABS: APTT 64.1 Sec (23.4-35.0)
--- NOTE | 2024-02-26 16:18 | W.PN.CD ---
Today's Communication / Plan
-
transition to PO diltiazem
Using IV heparin for AC, as may need to return to OR this admission
echo in AM
Impression / Plan
-
New onset atrial fibrillation RVR:
-on setting of obstructing ureteral stone, sepsis
-Currently rate controlled on IV diltiazem: transition to PO diltiazem
-[id number] score is 3. Using IV heparin for AC, as may need to return to OR this admission
-requires monitoring of PTT and Hgb
-echo in AM
right ureteral stone status post placement of right ureteral stent on 02/24/2024:
-Urology following: may return to OR this admission for removal
-cont abx
Hypertension:
-Stable on diltiazem
-takes HCTZ at home for HTN and stones
Hyperlipidemia:
-continue statin therapy
ROSALINA: resolved s/p ureteral stent
Physical Exam
Vital Signs/Labs
Vital Signs
Temp Pulse Resp BP Pulse Ox
98.0 F 84 14 122/69 94
02/26/24 15:35 02/26/24 15:35 02/26/24 15:35 02/26/24 15:35 02/26/24 15:35
02/25/24 02/26/24 02/27/24
06:59 06:59 06:59
Actual Weight 90.718 kg 90.8 kg
02/25/24 10:40
02/26/24 08:51
PT 15.8 Sec (11.4-14.6) H 02/25/24 02:16
INR 1.27 02/25/24 02:16
APTT 51.2 Sec (23.4-35.0) H 02/26/24 08:51
LAB Results
02/25/24
02:16
Troponin I < 0.012
Physical Exam
Constitutional: No acute distress and Comfortable
Cardiovascular: JVD pressure is normal, Systolic murmur absent, Rhythm/rate is irregular and Pedal edema present
Respiratory: Respiratory effort normal, Lungs clear to auscul. and Wheeze Absent
GI: Soft, Distention absent and Flat
Neuro/Psych: AO x 3
Data Reviewed
-
Date of Service: February 26, 2024
EKG: Other (Tele: A fib 80s-90s)
Labs: Labs Reviewed by me
[2024-02-26 16:19] LABS: Troponin I < 0.012 ng/ml
[2024-02-26] MEDS: CARDIZEM CD 180 MG PO (16:42)
[2024-02-26] MEDS: AMPICILLIN 108 MG IV ×2 (16:43→21:34)
[2024-02-26] MEDS: DETROL LA 4 MG PO (17:15)
[2024-02-26] MEDS: LIPITOR 10 MG PO (17:15)
--- NOTE | 2024-02-26 19:11 | W.PN.HOSP.TC ---
Addendum entered and electronically signed by Chidi Canada MD 03/06/24 13:54:
Hypokalemia
Addendum entered and electronically signed by Chidi Canada MD 02/26/24 19:26:
Dark red blood per rectum while on Heparin Drip -- consulted gastroenterology.
Original Note:
Today's Communication/Plan
-
Continue Heparin Drip
Continue Diltiazem
Continue antibiotics
Assessment / Plan
Assessment / Plan
Physical Exam
General: Not in acute distress.
HEENT: Normocephalic
Respiratory: Clear to Auscultation Bilaterally
Cardiac: S1/S2, Irregular Rhythm and Regular Rate
GI: Soft, Non Distended and Normal Bowel Sounds
Musculoskeletal: No Cyanosis and No Edema
Skin: Warm. Dry.
Neuro: AAO x 3
Psych: Calm

Assessment/Plan
#Presentation with non-specific abdominal pain and nausea
#Right fdtri-cwalad-fkdidwyxtixs - status post cystoscopy with manipulation of obstructing right ureteral calculus, right ureteral stenting (6-Colombian, 20 cm) and right retrograde pyelography on February 24, 2024
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
#Proteus Mirabilis Complicated UTI
#Suspected Pyelonephritis
#Sepsis - Urosepsis as above
#History of complicated UTI with pyelonephritis and left distal stone with stent and extraction
#Leukocytosis
#Lactic Acidosis - RESOLVED
- Continue to monitor on telemetry
- Status post Ceftriaxone
- Appreciated ID
- Urine cultures with Proteus mirabilis
- Continue Ampicillin based on urine culture sensitivities
- Follow blood cultures
- monitor I/O
#Nausea -- likely from suspected pyelonephritis
-PRN Zofran
-AM EKG's ordered to monitor QTc to ensure it is not getting prolonged
#Uncontrolled atrial fibrillation - No prior history. [id number] = 3.
- suspected induced by sepsis. Resuscitation as above. IV fluids, antibiotics as stated as above
- Status post Cardizem Drip -- switch to PO Cardizem
- echocardiogram in the morning
- cardiology consult
- Heparin Drip for the A-Fib for now --> continue Heparin Drip for anticoagulation given that patient might need to return to the OR this admission
- Eventually transition to PO anticoagulation and rate control soon
#ROSALINA - RESOLVED
- Likely obstructive/post-renal
- monitor i/o and cr, avoid nephrotoxins
- correction of sepsis as above
DVT PPx: Heparin Drip
Full Code
Anticipated Discharge: > 48 hours
Subjective/Interval History
-
Date of Service: February 26, 2024
Patient was seen and examined. She reported nausea, and per nurse she a dark red colored bowel movement this morning.
Objective Data
-
Labs:
Laboratory Results
02/26/24 02/26/24 02/26/24
08:51 15:35 22:42
APTT 51.2 H 64.1 H Pending
Sodium 135
Potassium 3.1 L
Chloride 104
Carbon Dioxide 25
BUN 38 H
Creatinine 0.9
Glucose 127 H
Calcium 9.2
Vital Signs:
Vital Signs
Temp Pulse Resp BP Pulse Ox
98.0 F 84 14 122/69 94
02/26/24 15:35 02/26/24 15:35 02/26/24 15:35 02/26/24 15:35 02/26/24 15:35
I&O
02/25/24 02/26/2424
06:59 06:59 06:59
Intake Total 2064.0 / 2180.0 2089
Output Total 700 / 775 1500 / 1500
Balance 1365.0 / 1405.0 590 / 590
[2024-02-26] MEDS: BENADRYL 50 MG PO (21:34)
[2024-02-27] MEDS: HEPARIN 25000 UNITS/250 ML IV ×2 (00:51→14:52)
[2024-02-27] MEDS: ZOFRAN 4 MG IV ×2 (02:56→09:10)
[2024-02-27 03:26] VITALS: BP 152/88
[2024-02-27] MEDS: AMPICILLIN 108 MG IV ×4 (03:58→21:36)
[2024-02-27] MEDS: TYLENOL 650 MG PO ×2 (04:06→20:43)
[2024-02-27 05:45] LABS: Hematocrit 33.1 % (37.0-47.0); Hemoglobin 11.5 g/dL (12.0-16.0); Mean Corp Hgb Conc. 34.7 g/dL (33.0-37.0); Mean Corpuscular Hgb 31.7 pg (27.0-31.0); Mean Corpuscular Volume 91.2 fL (81.0-99.0); Mean Platelet Volume 9.7 fL (7.4-10.4); Platelet Count 275 10^3/uL (130-400); Red Blood Cell Count 3.63 10^6/uL (4.20-5.40); Red Cell Dist. Width 13.8 % (11.5-14.5)
[2024-02-27 06:01] LABS: APTT 108.3 Sec (23.4-35.0)
[2024-02-27 06:13] LABS: Blood Urea Nitrogen 30 mg/dl (7-17); Calcium 8.8 mg/dl (8.4-10.2); Carbon Dioxide 26 mmol/L (22-30); Chloride 105 mmol/L (98-107); Estimated Creatinine Clearance 70 ml/min; Glucose 128 mg/dl (70-99); Magnesium 1.7 mg/dl (1.6-2.3); Sodium 139 mmol/L (135-145); eGFR > 60.00
[2024-02-27 06:29] LABS: Potassium 3.5 mmol/L (3.5-5.1)
--- NOTE | 2024-02-27 06:54 | CON.GI ---
Addendum entered and electronically signed by Sonya Head MD 02/27/24 11:33:
I saw and examined the patient.
The MILK PICKUP DRIVER's note was reviewed and I agree with the note.
-episode of rectal bleeding with hx of constipation. Likely hemorrhoidal. no further bleeding . last colonoscopy 2020- diverticulosis/ IH.
-urosepsis with right hydro/obstructing stone s/p cysto/pyelography and stent placement
- afib on heparin gtt
plan
avoid constipation . Regular bowel regimen - metamucil/ miralax
anulsol supp
monitor H/H
ok to continue anticoagulation as per medical team
follow up GI as outpatient
GI will sign off . call us back if any questions
Original Note:
Consultation
-
Date/Time Consultation Requested: 02/26/24 1900
Date/Time Consultation Performed: 02/27/24 0830
Requesting Provider: Chidi Canada MD
Performing Provider: MORGAN Major, Sonya Head MD
Reason for Consultation: rectal bleeding
Medical History
Chief Complaint / HPI
Chief Complaint: rectal bleeding
History of Present Illness:
Pt is a 68yo with hx malrotation of right kidney, renal stones, colon polyp, HTN, hypercholesterolemia with admission 02/23 with abdominal pain, leg pain with nausea and vomiting. In ER noted with afib. CT without contrast with concern for
Moderate right hydronephrosis and severe perinephric fluid suggesting forniceal rupture due to a 7 mm distal right ureteral stone. with many other non obstructing stones. Also noted PNA vs atelectasis, effusion and moderate stool in colon. Urine cx
with concern for Proteus Mirabilis. After admission pt went to OR for cystoscopy with manipulation of obstructing stones with placement of stent and right pyelography. Asked to see as placed on heparin gtt and noted with dark red blood per rectum.
In reviewing with patient she admits to regular stools daily but constipation over last week with urologic issues. She did take some laxatives and noted large hard stool on Tuesday. Bleeding was noted after this time with passing some red
blood with clots small volume. She admits to vomiting several time with onset of symptoms and some persistent nausea with slow improvement. She denies dysphagia, GERD, abdominal pain, or diarrhea.
2020 colonoscopy [facility]-diverticulosis, hemorrhoids
2013- colonoscopy [facility]- diverticulosis, 5 mm polyp rectum bx HP polyps
Past Medical History
Past Medical History: Arrhythmias (afib), HTN, Hypercholesterolemia and Other (colon polyps, renal stones, malrotation of right kidney pelvic organ prolapse wit pessary in place, UTI's)
Social History
Tobacco: Non-Smoker
Alcohol: None
Drug: None
Living: Alone
Employment: Retired
Family History
Family History: Other (father colon polyps in 80's)
Allergies / Home Medications
Allergy/AdvReac Type Severity Reaction Status Date / Time
sulfamethoxazole Allergy dizzy Verified 02/24/24 13:44
[From Bactrim]
trimethoprim [From Bactrim] Allergy dizzy Verified 02/24/24 13:44
�Medication �Instructions �Recorded
calcium carbonate 600 mg-vitamin 1 ea PO BID Supplement 11/12/11
D3 5 mcg (200 unit) capsule
(Calcium 600 + D(3))
flaxseed oil 1,000 mg capsule 1,000 mg PO QPM Supplement 11/12/11
simvastatin 20 mg tablet 20 mg PO QPM High Cholesterol 11/12/11
Lactobac no.2-Bifidobac no.1-S. 1 cap PO DAILY Supplement 08/05/23
thermo 112.5 billion cell capsule
(Visbiome)
ascorbic acid (vitamin C) 500 mg 500 mg PO BID Supplement 08/05/23
tablet (Vitamin C With Bety Hips)
aspirin 81 mg tablet,delayed 81 mg PO QPM Blood Clot 08/05/23
release Prevention/Tx
darifenacin 15 mg tablet,extended 15 mg PO QPM Urinary Issue 08/05/23
release 24 hr
estradiol 0.01% (0.1 mg/gram) 1 g vaginal TUSA Hormonal Agent 08/05/23
vaginal cream
glucosamine-chondroitin 500 mg-400 1 tab PO QPM Supplement 08/05/23
mg tablet (Cosamin DS)
hydrochlorothiazide 50 mg tablet 50 mg PO DAILY Blood Pressure 08/05/23
therapeutic multivitamin 1 tab PO DAILY Supplement 08/05/23
diphenhydramine HCl 50 mg capsule 50 mg PO HS Sleep 02/24/24
(Unisom SleepGels)
docusate sodium 100 mg capsule 100 mg PO DAILY PRN constipation 02/24/24
ibuprofen 125 mg-acetaminophen 250 2 tab PO Q6H mild pain 02/24/24
mg tablet (Dual Action Pain
Reliever)
polyethylene glycol 3350 17 gram 17 g PO ONCE 02/24/24
oral powder packet (Miralax)
Review of Systems
-
History Source: Patient
Constitutional: Reports No Symptoms
EENT: Reports No Symptoms
Respiratory: Reports No Symptoms
Abdomen/GI: Reports Nausea, Constipated and Bloody Stools
: Reports No Symptoms
Musculoskeletal: Reports No Symptoms
Skin: Reports No Symptoms
Neurological: Reports Weakness
Endocrine: Reports No Symptoms
Hematologic/Lymphatic: Reports Bleeding
Vital Signs
Temp Pulse Resp BP Pulse Ox
97.9 F 94 16 152/88 98
02/27/24 03:26 02/27/24 03:26 02/27/24 03:26 02/27/24 03:26 02/27/24 03:26
Physical Exam
Exam
General: Well Developed, Well Nourished and No Apparent Distress
HEENT: Normocephalic
Respiratory: Clear
Cardiac: Irregular Rhythm
GI: Soft, Non Tender and Non Distended
Rectal: Brown (pieces of hard stool heme neg + small steak of blood, + hemorrhoids )
Musculoskeletal: No Clubbing and No Cyanosis
Skin: Warm and Dry
Neuro: Awake, Alert and AO x 3
Psych: Calm
Results
WBC 18.0 10^3/uL (4.8-10.8) H 02/27/24 05:30
Hgb 11.5 g/dL (12.0-16.0) L 02/27/24 05:30
Hct 33.1 % (37.0-47.0) L 02/27/24 05:30
MCV 91.2 fL (81.0-99.0) 02/27/24 05:30
Plt Count 275 10^3/uL (130-400) 02/27/24 05:30
Absolute Neuts (auto) 25.0 10^3/uL (1.4-6.5) H 02/24/24 15:28
PT 15.8 Sec (11.4-14.6) H 02/25/24 02:16
INR 1.27 02/25/24 02:16
APTT 108.3 Sec (23.4-35.0) H 02/27/24 05:31
Sodium 139 mmol/L (135-145) 02/27/24 05:31
Potassium 3.5 mmol/L (3.5-5.1) 02/27/24 05:31
Chloride 105 mmol/L (98-107) 02/27/24 05:31
Carbon Dioxide 26 mmol/L (22-30) 02/27/24 05:31
BUN 30 mg/dl (7-17) H 02/27/24 05:31
Creatinine 0.8 mg/dL (0.6-1.0) 02/27/24 05:31
Calcium 8.8 mg/dl (8.4-10.2) 02/27/24 05:31
Total Bilirubin 1.2 mg/dl (0.2-1.3) 02/24/24 15:28
AST 44 U/L (14-36) H 02/24/24 15:28
ALT 56 U/L (0-35) H 02/24/24 15:28
Alkaline Phosphatase 223 U/L (38-126) H 02/24/24 15:28
Diagnostic Image Results:
02/24/24 CT Abd/pel Without Iv Or Oral
Moderate right hydronephrosis and severe perinephric fluid suggesting forniceal rupture due to a 7 mm distal right ureteral stone. New.
Many additional tiny nonobstructing right renal stones. New.
Subcentimeter hypodense left renal lesions likely benign proteinaceous cyst. Stable
Moderate right lower lobe consolidation suggesting pneumonia versus atelectasis. New
Tiny loculated right pleural effusion. New
Moderate fecal material throughout the colon. Stable
Prior GI procedures:
2020 colonoscopy [facility]-diverticulosis, hemorrhoids
2013- colonoscopy [facility]- diverticulosis, 5 mm polyp rectum bx HP polyps
Assessment / Plan
-
Pt is a 68yo with hx malrotation of right kidney, renal stones, colon polyp, HTN, hypercholesterolemia with admission 02/23 with abdominal pain, leg pain with nausea and vomiting. In ER noted with afib. CT without contrast with concern for
Moderate right hydronephrosis and severe perinephric fluid suggesting forniceal rupture due to a 7 mm distal right ureteral stone. with many other non obstructing stones. Also noted PNA vs atelectasis, effusion and moderate stool in colon. Urine cx
with concern for Proteus Mirabilis. After admission pt went to OR for cystoscopy with manipulation of obstructing stones with placement of stent and right pyelography. Asked to see as placed on heparin gtt and noted with dark red blood per rectum.
-rectal bleeding
-constipation
-nausea - slow improvement
-urosepsis with right hydro/obstructing stone s/p cysto/pyelography and stent placement
-ROSALINA on admission - resolved
-leukocytosis
-increased LFT's on admission
-afib with RVR on admission
-moderate stool in colon on CT
-CT with possible PNA
-hypoalbuminemia on admission
other medical problems:
-kidney stones
-colon polyps
-HTN
-hypercholesterolemia
PLAN:
Etiology rectal bleeding related to local process with constipation and increased stool burden, hemorrhoidal bleeding, fissure though not seen on exam vs other
-hbg minimal change 12.9 on admission to 11.5
Pt remains on heparin gtt cont to monitor for recurrent bleeding
repeat LFT's with some elevation on admission
add Miralax daily to keep bowel moving
add Anusol suppository daily now and HS
cont cholesterol lowering diet
cont abx per ID
OP follow up colonoscopy due 10/2025 consider sooner if bleeding persists
-
-
Thank you for consultation and allowing me to participate in the patient's care. Please call the environmental health technologist GI physician during the after hours with any questions or concerns.
--- NOTE | 2024-02-27 07:07 | W.PN.URO.CBU ---
Today's Communication / Plan
-
IF medically fit, would plan to return patient to OR this Tuesday to definitively remove presumed struvite stone, which represents nidus of Proteus infection.
Assessment / Plan
-
Proteus urosepsis
Obstructing right ureteral stone [presumed struvite composition] -- alleviated by stent
improved leukocytosis and other indicators of sepsis
Diagnosis
-
Date of Service: February 27, 2024
-
Patient Diagnosis:
Right ureteral stone: 7 mm, obstructing
Urosepsis -- Proteus
emergently to OR to alleviate obstruction by placement of a right ureteral stent on 02/24/24 ~ 730 PM
Post Op Day: 3
Subjective
-
'I'm feeling much better.'
Objective
-
Vital Signs
Temp Pulse Resp BP Pulse Ox
97.9 F 94 16 152/88 98
02/27/24 03:26 02/27/24 03:26 02/27/24 03:26 02/27/24 03:26 02/27/24 03:26
Intake and Output
02/26/24 02/27/24 02/28/24
06:59 06:59 06:59
Intake Total 2089
Output Total 1500 / 1500
Balance 590 / 590
Intake:
IV fluids (Total) 2089
CARDIZEM 125mg/125ml 180 / 180
Lr 1,000 ml @ 75 mls/hr IV . 750 / 750
[id number] SHEILA Rx#:[id number]
NORMAL SALINE 200 / 200
heparin 60 / 60
Output:
Urine, Cooper 950 / 950
Urine, Voided 550 / 550
Laboratory Results
02/27/24 05:30
02/27/24 05:31
Physical Exam
-
General - well developed, well nourished, no acute distress
[2024-02-27 07:31] VITALS: BMI 36.7
[2024-02-27] MEDS: THERAGRAN 1 TABLET PO (07:47)
[2024-02-27 08:00] LABS: ALT (SGPT) 33 U/L (0-35); AST (SGOT) 23 U/L (14-36); Albumin 2.7 g/dl (3.5-5.0); Alkaline Phosphatase 175 U/L (38-126); Direct Bilirubin 0.3 mg/dl (0.0-0.4); Total Bilirubin 0.7 mg/dl (0.2-1.3); Total Protein 5.8 g/dl (6.3-8.2)
--- NOTE | 2024-02-27 08:26 | W.PN.CD ---
Addendum entered and electronically signed by Nelson Lepe MD 02/27/24 10:14:
I saw and examined the patient.
The CURED MEAT PACKING SUPERVISOR's note was reviewed and I agree with the note.
resp status stable. decreased BS at bases. Patient feels hands are puffy and egs are swollen. Leg fullness without overt edema. Lung exam with decreased BS as bases. Abd CT this admit with RLL consolidation. Patient had received Ceftriaxone earlier
this admit. but now on ampicillin. Weights stable. Patient may have some swelling related to IVF and afib / Also could have swelling related to cardizem
- will give lasix dose today
- CXR
- Would defer to hospitalists regarding abx for issues and ? RLL consolidation on CT ) follow up CXR pending)
Original Note:
Today's Communication / Plan
-
-echo today pending, checking weight
-continue diltiazem and monitor telemetry, BP
-continue heparin drip and monitor HGB. Note that GI assessing since there was minimal blood WI. HGB stable.
Impression / Plan
-
New onset atrial fibrillation RVR:
-on setting of obstructing ureteral stone, sepsis
-now on PO diltiazem- rates generally right around 100 BPM. Continue to monitor telemetry.
-[id number] score is 3. Using IV heparin for AC, as may need to return to OR this admission-requires monitoring of PTT and Hgb. Apparently small amount of blood after straining to have a BM per nursing (yesterday)- GI consulted, but hemoglobin
stable and heparin continued at this time. Patient tells me she was straining and hemorrhoids were seen as well.
-echo today pending
right ureteral stone status post placement of right ureteral stent on 02/24/2024:
-Urology following: likely return to OR on Tuesday to definitively remove presumed struvite stone, which represents nidus of Proteus infection
-cont abx
Hypertension:
-Stable on diltiazem
-takes HCTZ at home for HTN and stones
Hyperlipidemia:
-continue statin therapy
ROSALINA: resolved s/p ureteral stent
LE edema:
-patient does have rales to bases and LE edema
-she received 4L IVF this admit
-denies any SOB
-await echo, check weight- discussed with RN
Physical Exam
Vital Signs/Labs
Vital Signs
Temp Pulse Resp BP Pulse Ox
97.9 F 94 16 152/88 98
02/27/24 03:26 02/27/24 03:26 02/27/24 03:26 02/27/24 03:26 02/27/24 03:26
02/26/24 02/27/24 02/28/24
06:59 06:59 06:59
Actual Weight 90.8 kg
02/27/24 05:30
02/27/24 05:31
PT 15.8 Sec (11.4-14.6) H 02/25/24 02:16
INR 1.27 02/25/24 02:16
APTT 108.3 Sec (23.4-35.0) H 02/27/24 05:31
Magnesium 1.7 mg/dl (1.6-2.3) 02/27/24 05:31
LAB Results
02/25/24 02/26/24 02/26/24
02:16 15:35 19:30
Troponin I < 0.012 < 0.012 Cancelled
Physical Exam
Constitutional: No acute distress
EENT: Anicteric
Cardiovascular: Rhythm/rate is irregular and Pedal edema present (mild BLE edema)
Respiratory: Respiratory effort normal and Crackles Present (to b/l bases)
Neuro/Psych: AO x 3
Data Reviewed
-
Date of Service: February 27, 2024
EKG: Other (AFIB)
Labs: Labs Reviewed by me
[2024-02-27] MEDS: CARDIZEM CD 180 MG PO ×2 (08:30→20:40)
--- NOTE | 2024-02-27 08:30 | W.PN.HOSP.TC ---
Today's Communication/Plan
-
see bold
Assessment / Plan
Assessment / Plan
Gen: NAD, AAOx3.
Eyes: EOMI, PERRLA, no scleral icterus.
Neck: supple.
CV: irreg/irreg, +S1/S2, no m/r/g.
Resp: CTAB, no rales, wheezes, or rhonchi.
Abd: +BS, soft, NT, ND
Skin: No rashes. 1+ dependent LE edema
Neuro: CN 2-12 intact, non-focal.
Psych: Normal mood and affect.
02/24/24 18:15 Blood/Venous Blood Culture - Preliminary
No Growth in 48 hours- Final report to follow
02/24/24 18:15 Blood/Venous Blood Culture - Preliminary
No Growth in 48 hours- Final report to follow
02/24/24 18:15 Urine Urine Culture - Final
Proteus mirabilis
CT A/P: Moderate right hydronephrosis and severe perinephric fluid suggesting forniceal rupture due to a 7 mm distal right ureteral stone. New. Many additional tiny nonobstructing right renal stones. New. Subcentimeter hypodense left renal lesions
likely benign proteinaceous cyst. Stable. Moderate right lower lobe consolidation suggesting pneumonia versus atelectasis. New. Tiny loculated right pleural effusion. New. Moderate fecal material throughout the colon. Stable.
Sepsis and ROSALINA, POA, due to R-sided pyelonephritis due to right ureterolithiasis:
-CT A/P above
-s/p cystoscopy with manipulation of obstructing right ureteral calculus, right ureteral stenting (6-Frisian, 20 cm) and right retrograde pyelography on 02/24/24
-cont Ampicillin for Proteus as per ID
-lactic acidosis, resolved
-Leukocytosis improving
-ROSALINA resolved with IVFs
-plan for return to OR 02/29/24 for removal of presumed struvite stone
Afib with RVR:
-cont heparin gtt
-check echo
-was on cardizem gtt, now transitioned to PO Cardizem
Mild rectal bleeding:
-GI following
Obesity due to excess calories:
-encourage weight loss
-Affects aspects of care
FULL/Heparin gtt
Anticipated Discharge: 24 - 48 hours
Subjective/Interval History
-
Date of Service: February 27, 2024
Denies CP/SOB.
Objective Data
-
Labs:
Laboratory Results
02/26/24 02/27/24 02/27/24
22:48 05:30 05:31
WBC 18.0 H
Hgb 11.5 L
Hct 33.1 L
Plt Count 275
APTT 69.0 H 108.3 H
Sodium 139
Potassium 3.5
Chloride 105
Carbon Dioxide 26
BUN 30 H
Creatinine 0.8
Glucose 128 H
Calcium 8.8
Total Bilirubin 0.7
AST 23
ALT 33
Alkaline Phosphatase 175 H
02/27/24
11:31
WBC
Hgb
Hct
Plt Count
APTT Pending
Sodium
Potassium
Chloride
Carbon Dioxide
BUN
Creatinine
Glucose
Calcium
Total Bilirubin
AST
ALT
Alkaline Phosphatase
Vital Signs:
Vital Signs
Temp Pulse Resp BP Pulse Ox
97.9 F 94 16 152/88 98
02/27/24 03:26 02/27/24 03:26 02/27/24 03:26 02/27/24 03:26 02/27/24 03:26
I&O
02/26/24 02/27/24 02/28/24
06:59 06:59 06:59
Intake Total 2092089 / 90
Output Total 1500 / 1500
Balance 590 / 590 /
[2024-02-27 08:31] VITALS: BP 132/64
[2024-02-27] MEDS: MIRALAX 17 GRAMS PO (09:10)
[2024-02-27] MEDS: ANUSOL HC 25 MG RECTAL ×2 (09:11→21:37)
--- NOTE | 2024-02-27 09:33 | PTCARENOTE ---
HR erratic, >100 with increases into 140s. 6 beat run of PVCs noted. Dr Ugarte made aware. No new orders at this time. Care ongoing.
[2024-02-27] MEDS: LASIX 20 MG IV (10:25)
--- NOTE | 2024-02-27 11:32 | PN.CDI ---
CDI
- -
CDI:
Physician Documentation Request
Admit Date: 02/24/24 19:44
Dear Doctor Dread,
Patient admitted with sepsis.
02/24 Potassium Chloride 20 meq IV administered
02/24/24 02/25/24 02/26/24
15:28 02:16 08:51
Potassium 3.4 L 3.4 L 3.1 L
Based on the above, could you clarify in the progress notes, the appropriate diagnosis, if significant, that supports the above abnormalities and additional evaluation, monitoring and/or treatment rendered:
Hypokalemia
Abnormal lab value insignificant
Other
Use of terms such as suspected, likely, concern for, or probable (associated with a specific diagnosis that is being evaluated, monitored, or treated as if it exists) are acceptable and can be coded in the inpatient setting, when documented at the
time of discharge.
Thank you,
Barbie Sterling RN, BSN
CDI Specialist
Available via [facility] text
Please use your independent medical judgment in providing your response.
[2024-02-27 11:45] LABS: APTT 98.4 Sec (23.4-35.0)
[2024-02-27 12:00] VITALS: BP 141/68
[2024-02-27 13:09] LABS: Procalcitonin 0.67 ng/ml (0.0-0.25)
--- NOTE | 2024-02-27 14:19 | CM ---
Reviewed the chart notes. Per urology, return patient to OR this Tuesday to definitively remove presumed struvite stone. CM continues to be available to patient/family and is monitoring medical plan for needs at discharge.
Plan: Discharge to home with no needs anticipated.
--- NOTE | 2024-02-27 14:49 | W.PN.ID1 ---
Date of Service
Date of Service: February 27, 2024
Today's Communication
Continue antibiotics. Await definitive stone treatment.
Assessment / Plan
Leukocytosis
Complicated urinary tract infection 2* Proteus mirabilis
Suspected pyelonephritis
Obstructive uropathy
Renal insufficiency; improved
Transaminitis
HTN
Dyslipidemia
Pelvic organ prolapse with pessary
Hx UTI
Recommendations:
Urine culture with Proteus mirabilis. Continue with ampicillin 2 g IV every 6 hours.
Monitor white count and temperature curve.
Follow for clinical improvement.
Repeat blood cultures for temperature greater than 100.5 degrees.
Continue supportive measures.
Chief Complaint
-: Leukocytosis and UTI
Subjective / Review of Systems
Review of Systems: No Fever and No Chills
Vital Signs / Physical Exam
Vital Signs
Vital Signs
Temp Pulse Resp BP Pulse Ox
98.1 F 82 17 141/68 94
02/27/24 12:00 02/27/24 12:00 02/27/24 12:00 02/27/24 12:00 02/27/24 12:00
Physical Exam
Constitutional: No Acute Distress, Comfortable and Non-toxic
Eyes: Sclera Anicteric
Cardiovascular: S1/S2; Negative S3/S4
Pulmonary: Non Labored
Gastrointestinal: Soft, Non Tender and Non Distended
Neurological: Awake and Alert
Psychological: Calm
Objective Data
Lab Data
Lab Results
02/27/24 05:30
02/27/24 05:31
PT 15.8 Sec (11.4-14.6) H 02/25/24 02:16
INR 1.27 02/25/24 02:16
APTT 98.4 Sec (23.4-35.0) H 02/27/24 11:15
Estimated Creat Clear 70 ml/min 02/27/24 05:31
Lactic Acid Cancelled 02/25/24 08:13
Total Bilirubin 0.7 mg/dl (0.2-1.3) 02/27/24 05:31
AST 23 U/L (14-36) 02/27/24 05:31
ALT 33 U/L (0-35) 02/27/24 05:31
Alkaline Phosphatase 175 U/L (38-126) H 02/27/24 05:31
Most recent labs reviewed.
Micro Results:
02/24/24 18:15 Blood Culture - Preliminary
Blood/Venous No Growth in 48 hours- Final report to follow
02/24/24 18:15 Blood Culture - Preliminary
Blood/Venous No Growth in 48 hours- Final report to follow
02/24/24 18:15 Urine Culture - Final
Urine Proteus mirabilis
Imaging:
02/24/2024 CT abdomen/pelvis: Moderate right hydronephrosis and severe perinephric fluid suggesting forniceal rupture due to a 7 mm distal right ureteral stone. Many additional tiny nonobstructing right renal stones are noted. A subcentimeter
hypodense left renal lesion is likely benign proteinaceous cyst. Moderate right lower lobe consolidation suggesting either atelectasis or pneumonia.
[2024-02-27 15:56] VITALS: BP 143/83
[2024-02-27] MEDS: LIPITOR 10 MG PO (17:28)
[2024-02-27] MEDS: DETROL LA 4 MG PO (17:29)
[2024-02-27 19:10] VITALS: BP 146/73
[2024-02-27] MEDS: BENADRYL 50 MG PO (21:37)
[2024-02-28] VITALS (7 sets, daily range): BP systolic 118–143; BP diastolic 71–89
[2024-02-28] MEDS: AMPICILLIN 108 MG IV ×4 (04:09→21:26)
[2024-02-28] MEDS: HEPARIN 25000 UNITS/250 ML IV ×2 (04:22→19:24)
[2024-02-28 05:29] LABS: APTT 145.2 Sec (23.4-35.0)
[2024-02-28 07:03] LABS: ALT (SGPT) 32 U/L (0-35); AST (SGOT) 34 U/L (14-36); Albumin 2.6 g/dl (3.5-5.0); Alkaline Phosphatase 154 U/L (38-126); Direct Bilirubin 0.5 mg/dl (0.0-0.4); Magnesium 1.6 mg/dl (1.6-2.3); Total Bilirubin 0.9 mg/dl (0.2-1.3); Total Protein 5.6 g/dl (6.3-8.2)
--- NOTE | 2024-02-28 07:10 | W.PN.URO.CBU ---
Today's Communication / Plan
-
OR tomorrow to remove infected stone from right ureter and exchange ureteral stent
procedure reviewed in detail -- potential complications/risks; consent signed and placed on chart
Assessment / Plan
-
Proteus urosepsis
Obstructing right ureteral stone [presumed struvite composition] -- alleviated by stent
improved leukocytosis and other indicators of sepsis
Diagnosis
-
Date of Service: February 28, 2024
-
Patient Diagnosis:
Right ureteral stone: 7 mm, obstructing
Urosepsis -- Proteus
emergently to OR to alleviate obstruction by placement of a right ureteral stent on 02/24/24 ~ 730 PM
Post Op Day: 4
Subjective
-
'better every day'
Objective
-
Vital Signs
Temp Pulse Resp BP Pulse Ox
98.2 F 86 16 132/71 93
02/28/24 03:12 02/28/24 03:12 02/28/24 03:12 02/28/24 03:12 02/28/24 03:12
Intake and Output
02/27/24 02/28/24 02/29/24
06:59 06:59 06:59
Intake Total 3564 / 3564
Balance 3564 / 3564
Intake:
Oral fluids 2280 / 2280
IV fluids (Total) 212 / 212
IV piggybacks 1072 / 1072
Other:
Number of approximated SMALL 1
amounts of urine
Number of approximated MODERATE 2
amounts of urine
Number of approximated LARGE 1
amounts of urine
How many times incontinent 2
SATURATED amount urine
Laboratory Results
02/27/24 05:30
02/27/24 05:31
Physical Exam
-
General - well developed, well nourished, no acute distress
--- NOTE | 2024-02-28 08:24 | W.PN.HOSP.TC ---
Today's Communication/Plan
-
see bold
Assessment / Plan
Assessment / Plan
Gen: NAD, AAOx3.
Eyes: remains EOMI, PERRLA, no scleral icterus.
Neck: supple.
CV: tachy, irreg/irreg, +S1/S2, no m/r/g.
Resp: CTAB anteriorly, no rales, wheezes, or rhonchi.
Abd: +BS, soft, NT, ND
Skin: No rashes. 1+ dependent LE edema
Neuro: CN 2-12 intact, non-focal.
Psych: Normal mood and affect.
02/24/24 18:15 Blood/Venous Blood Culture - Preliminary
No Growth in 72 hours- Final report to follow
02/24/24 18:15 Blood/Venous Blood Culture - Preliminary
No Growth in 72 hours- Final report to follow
02/24/24 18:15 Urine Urine Culture - Final
Proteus mirabilis
Echo: Normal biventricular size and systolic function without regional wall motion abnormality. Estimated LVEF 55-60%. Mild concentric left ventricular hypertrophy. No significant valve disease. No prior study available for comparison.
CT A/P: Moderate right hydronephrosis and severe perinephric fluid suggesting forniceal rupture due to a 7 mm distal right ureteral stone. New. Many additional tiny nonobstructing right renal stones. New. Subcentimeter hypodense left renal lesions
likely benign proteinaceous cyst. Stable. Moderate right lower lobe consolidation suggesting pneumonia versus atelectasis. New. Tiny loculated right pleural effusion. New. Moderate fecal material throughout the colon. Stable.
Sepsis and ROSALINA, POA, due to R-sided pyelonephritis due to right ureterolithiasis:
-CT A/P above
-s/p cystoscopy with manipulation of obstructing right ureteral calculus, right ureteral stenting (6-Maltese, 20 cm) and right retrograde pyelography on 02/24/24
-cont Ampicillin for Proteus as per ID
-lactic acidosis, resolved
-Leukocytosis improving
-ROSALINA resolved with IVFs
-plan for return to OR 02/29/24 for removal of presumed struvite stone
Afib with RVR:
-cont heparin gtt
-echo above
-was on cardizem gtt, now transitioned to PO Cardizem
Mild rectal bleeding:
-GI following
Obesity due to excess calories:
-encourage weight loss
-Affects aspects of care
FULL/Heparin gtt
Anticipated Discharge: 24 - 48 hours
Subjective/Interval History
-
Date of Service: February 28, 2024
Denies CP/SOB.
Objective Data
-
Labs:
Laboratory Results
02/28/24 02/28/24
05:08 05:09
APTT 145.2 H
Total Bilirubin 0.9
AST 34
ALT 32
Alkaline Phosphatase 154 H
Vital Signs:
Vital Signs
Temp Pulse Resp BP Pulse Ox
98.2 F 96 17 143/89 95
02/28/24 07:19 02/28/24 07:19 02/28/24 07:19 02/28/24 07:19 02/28/24 07:19
I&O
02/27/24 02/28/24 02/29/24
06:59 06:59 06:59
Intake Total 3564 / 3564
Balance 3564 / 3564
[2024-02-28] MEDS: MIRALAX 17 GRAMS PO (08:59)
[2024-02-28] MEDS: CARDIZEM CD 180 MG PO ×2 (08:59→21:21)
[2024-02-28] MEDS: THERAGRAN 1 TABLET PO (08:59)
--- NOTE | 2024-02-28 09:13 | W.PN.CD ---
Today's Communication / Plan
-
lasix 20mg iv
continue iv heparin given surgery for tomorrow
tubigrips
Impression / Plan
-
New onset atrial fibrillation RVR:
-on setting of obstructing ureteral stone, sepsis
-now on PO diltiazem- rates generally right around 100 BPM. Continue to monitor telemetry.
-[id number] score is 3. Using IV heparin for AC, as may need to return to OR this admission-requires monitoring of PTT and Hgb. Apparently small amount of blood after straining to have a BM per nursing (yesterday)- GI consulted, but hemoglobin
stable and heparin continued at this time. Patient tells me she was straining and hemorrhoids were seen as well.
-echo with normal lvef
right ureteral stone status post placement of right ureteral stent on 02/24/2024:
-Urology following: return to OR on Tuesday to definitively remove presumed struvite stone, which represents nidus of Proteus infection
-cont abx
Hypertension:
-Stable on diltiazem
-takes HCTZ at home for HTN and stones
Hyperlipidemia:
-continue statin therapy
ROSALINA: resolved s/p ureteral stent
Iatrogenic volume overload:
-additional lasix today
-LE edema will add tubigrips
-she received 4L IVF this admit
-denies any SOB
Subjective:
she is feeling well, she has less swelling in the hands but hands persist.
02/27/2024: Echo
Normal biventricular size and systolic function without regional wall motion
abnormality. Estimated LVEF 55-60%.
Mild concentric left ventricular hypertrophy.
No significant valve disease.
Physical Exam
Vital Signs/Labs
Vital Signs
Temp Pulse Resp BP Pulse Ox
98.2 F 96 17 143/89 95
02/28/24 07:19 02/28/24 07:19 02/28/24 07:19 02/28/24 07:19 02/28/24 07:19
02/27/24 05:30
02/27/24 05:31
PT 15.8 Sec (11.4-14.6) H 02/25/24 02:16
INR 1.27 02/25/24 02:16
APTT 145.2 Sec (23.4-35.0) H 02/28/24 05:09
Magnesium 1.6 mg/dl (1.6-2.3) 02/28/24 05:08
LAB Results
02/26/24 02/26/24
15:35 19:30
Troponin I < 0.012 Cancelled
Physical Exam
Constitutional: No acute distress
Cardiovascular: Rhythm & rate is regular, Pedal edema is absent, JVD pressure is normal, Systolic murmur absent and Pedal edema present (2+ bl)
Respiratory: Respiratory effort normal, Lungs clear to auscul., Wheeze Absent, Crackles Absent and Rhonchi Absent
Data Reviewed
-
Date of Service: February 28, 2024
EKG: Other (tele fib mostly rate controlled)
[2024-02-28] MEDS: LASIX 20 MG IV (10:02)
[2024-02-28] MEDS: TYLENOL 650 MG PO (13:49)
--- NOTE | 2024-02-28 14:44 | W.PN.ID1 ---
Date of Service
Date of Service: February 28, 2024
Today's Communication
Continue antibiotics
Assessment / Plan
Leukocytosis
Complicated urinary tract infection 2* Proteus mirabilis
Suspected pyelonephritis
Obstructive uropathy
Renal insufficiency; improved
Transaminitis
HTN
Dyslipidemia
Pelvic organ prolapse with pessary
Hx UTI
Recommendations:
Urine culture with Proteus mirabilis. Continue with ampicillin 2 g IV every 6 hours.
Monitor white count and temperature curve.
Follow for clinical improvement.
Repeat blood cultures for temperature greater than 100.5 degrees.
Continue supportive measures.
Patient for tentative urologic procedure tomorrow for stone retrieval.
Chief Complaint
-: Leukocytosis and UTI
Subjective / Review of Systems
Patient seen and examined. Reports some mild right leg discomfort. No fevers or chills.
Review of Systems: No Fever and No Chills
Vital Signs / Physical Exam
Vital Signs
Vital Signs
Temp Pulse Resp BP Pulse Ox
98.1 F 105 16 129/76 98
02/28/24 11:24 02/28/24 11:24 02/28/24 11:24 02/28/24 11:24 02/28/24 11:24
Physical Exam
Physical Exam:
Constitutional: No Acute Distress, Comfortable and Non-toxic
Eyes: Sclera Anicteric
Cardiovascular: S1/S2; Negative S3/S4
Pulmonary: Non Labored
Gastrointestinal: Soft, Non Tender and Non Distended
Neurological: Awake and Alert
Psychological: Calm
Objective Data
Lab Data
Lab Results
02/27/24 05:30
02/27/24 05:31
PT 15.8 Sec (11.4-14.6) H 02/25/24 02:16
INR 1.27 02/25/24 02:16
APTT 145.2 Sec (23.4-35.0) H 02/28/24 05:09
Estimated Creat Clear 70 ml/min 02/27/24 05:31
Lactic Acid Cancelled 02/25/24 08:13
Total Bilirubin 0.9 mg/dl (0.2-1.3) 02/28/24 05:08
AST 34 U/L (14-36) 02/28/24 05:08
ALT 32 U/L (0-35) 02/28/24 05:08
Alkaline Phosphatase 154 U/L (38-126) H 02/28/24 05:08
Most recent labs reviewed.
Micro Results:
02/24/24 18:15 Blood Culture - Preliminary
Blood/Venous No Growth in 72 hours- Final report to follow
02/24/24 18:15 Blood Culture - Preliminary
Blood/Venous No Growth in 72 hours- Final report to follow
02/24/24 18:15 Urine Culture - Final
Urine Proteus mirabilis
Imaging:
02/24/2024 CT abdomen/pelvis: Moderate right hydronephrosis and severe perinephric fluid suggesting forniceal rupture due to a 7 mm distal right ureteral stone. Many additional tiny nonobstructing right renal stones are noted. A subcentimeter
hypodense left renal lesion is likely benign proteinaceous cyst. Moderate right lower lobe consolidation suggesting either atelectasis or pneumonia.
[2024-02-28] MEDS: LOPRESSOR 5 MG IV (14:51)
[2024-02-28 15:00] LABS: APTT 78.7 Sec (23.4-35.0)
[2024-02-28] MEDS: DETROL LA 4 MG PO (17:48)
[2024-02-28] MEDS: LIPITOR 10 MG PO (17:48)
[2024-02-28 21:12] LABS: APTT 101.1 Sec (23.4-35.0)
[2024-02-28] MEDS: BENADRYL 50 MG PO (21:22)
[2024-02-28] MEDS: ANUSOL HC RECTAL (21:36)
[2024-02-29] VITALS (13 sets, daily range): BP systolic 108–144; BP diastolic 65–89
--- NOTE | 2024-02-29 03:30 | DOWNTIME ---
There was a [employer] Downtime on 02/28/2024 from 0100 to 02/29/2024 at 0300. Downtime documentation of patient's care, including medication administrations, has been reconciled in the electronic record per guidelines. Refer to the
patient's paper chart under the miscellaneous tab to see printed paper medication records and downtime forms.
[2024-02-29] MEDS: AMPICILLIN 108 MG IV ×4 (04:07→21:22)
[2024-02-29] MEDS: TYLENOL 650 MG PO ×2 (04:22→20:04)
[2024-02-29 07:45] LABS: % Basophils 0.2 % (0-2); % Immature Granulocytes 0.9 % (0-0.5); % Lymphocytes 14.1 % (20.5-51.1); % Monocytes 5.6 % (1.7-9.3); % Neutrophils 78.2 % (42.2-75.2); Absolute Eosinophils 0.2 10^3/uL (0-0.7); Absolute Immature Granulocytes 0.1 10^3/uL (0-0.05); Absolute Monocytes 0.8 10^3/uL (0.1-0.6); Absolute Neutrophils 11.3 10^3/uL (1.4-6.5); Hematocrit 30.9 % (37.0-47.0); Hemoglobin 10.7 g/dL (12.0-16.0); Mean Corp Hgb Conc. 34.6 g/dL (33.0-37.0); Mean Corpuscular Hgb 31.5 pg (27.0-31.0); Mean Corpuscular Volume 90.9 fL (81.0-99.0); Mean Platelet Volume 9.9 fL (7.4-10.4); Nucleated Red Blood Cells % 0 %; Platelet Count 247 10^3/uL (130-400); Red Cell Dist. Width 13.6 % (11.5-14.5); White Blood Cell Count 14.4 10^3/uL (4.8-10.8)
[2024-02-29 08:00] LABS: APTT 96.3 Sec (23.4-35.0)
[2024-02-29 08:23] LABS: Blood Urea Nitrogen 19 mg/dl (7-17); Calcium 8.7 mg/dl (8.4-10.2); Carbon Dioxide 24 mmol/L (22-30); Chloride 105 mmol/L (98-107); Estimated Creatinine Clearance 79 ml/min; Glucose 112 mg/dl (70-99); Potassium 3.4 mmol/L (3.5-5.1); Sodium 137 mmol/L (135-145); eGFR > 60.00
[2024-02-29] MEDS: MIRALAX PO (09:19)
[2024-02-29] MEDS: CARDIZEM CD 180 MG PO ×2 (09:19→20:04)
[2024-02-29] MEDS: THERAGRAN PO (09:20)
--- NOTE | 2024-02-29 10:37 | W.PN.HOSP.TC ---
Today's Communication/Plan
-
see bold
Assessment / Plan
Assessment / Plan
Gen: NAD, AAOx3.
Eyes: continues to remain EOMI, PERRLA, no scleral icterus.
Neck: supple.
CV: irreg/irreg, +S1/S2, no m/r/g.
Resp: CTAB anteriorly, no rales, wheezes, or rhonchi.
Abd: +BS, soft, NT, ND
Skin: No rashes.
Neuro: CN 2-12 intact, non-focal.
Psych: Normal mood and affect.
02/24/24 18:15 Blood/Venous Blood Culture - Preliminary
No Growth in 4 days- Final report to follow
02/24/24 18:15 Blood/Venous Blood Culture - Preliminary
No Growth in 4 days- Final report to follow
02/24/24 18:15 Urine Urine Culture - Final
Proteus mirabilis
Echo: Normal biventricular size and systolic function without regional wall motion abnormality. Estimated LVEF 55-60%. Mild concentric left ventricular hypertrophy. No significant valve disease. No prior study available for comparison.
CT A/P: Moderate right hydronephrosis and severe perinephric fluid suggesting forniceal rupture due to a 7 mm distal right ureteral stone. New. Many additional tiny nonobstructing right renal stones. New. Subcentimeter hypodense left renal lesions
likely benign proteinaceous cyst. Stable. Moderate right lower lobe consolidation suggesting pneumonia versus atelectasis. New. Tiny loculated right pleural effusion. New. Moderate fecal material throughout the colon. Stable.
Sepsis and ROSALINA, POA, due to R-sided pyelonephritis due to right ureterolithiasis:
-CT A/P above
-lactic acidosis, resolved
-Leukocytosis improving
-ROSALINA resolved with IVFs
-s/p cystoscopy with manipulation of obstructing right ureteral calculus, right ureteral stenting (6-Australian, 20 cm) and right retrograde pyelography on 02/24/24
-s/p right ureteroscopy, laser lithotripsy, basket extraction of stone fragments, stent exchange on 02/29/24
-cont Ampicillin for Proteus as per ID
Afib with RVR:
-cont heparin gtt, likely transition to DOAC tomorrow
-echo above
-was on cardizem gtt, now transitioned to PO Cardizem
Mild rectal bleeding:
-GI saw in c/s
-trend Hb
Obesity due to excess calories:
-encourage weight loss
-Affects aspects of care
Hypokalemia:
-PO K
FULL/Heparin gtt
Anticipated Discharge: 24 - 48 hours
Subjective/Interval History
-
Date of Service: February 29, 2024
Denies CP/SOB.
Objective Data
-
Labs:
Laboratory Results
02/29/24
07:20
WBC 14.4 H
Hgb 10.7 L
Hct 30.9 L
Plt Count 247
APTT 96.3 H
Sodium 137
Potassium 3.4 L
Chloride 105
Carbon Dioxide 24
BUN 19 H
Creatinine 0.7
Glucose 112 H
Calcium 8.7
Vital Signs:
Vital Signs
Temp Pulse Resp BP Pulse Ox
98.4 F 87 18 123/72 97
02/29/24 07:30 02/29/24 07:30 02/29/24 07:30 02/29/24 07:30 02/29/24 07:30
I&O
02/28/24 02/29/24 03/01/24
06:59 06:59 06:59
Intake Total 3564 / 3564 1176 / 1176
Balance 3564 / 3564 1176 / 1176
--- NOTE | 2024-02-29 11:06 | W.SUR.PREOP ---
Pre-Operative Surgical Note
-
I have examined this patient prior to the performance of the scheduled procedure.
Questions answered.
Consent on chart.
--- NOTE | 2024-02-29 12:06 | W.IMMPOSTOP ---
Surgical Immed Post Op Note
-
Primary Surgeon: Reynold
Pre-op Diagnosis: Right distal ureteral struvite stone; urosepsis
Post-op Diagnosis: same
Procedure Performed: right ureteroscopy, laser lithotripsy, basket extraction of stone fragments, stent exchange
Anesthesia Type: gen
Specimen / Cultures: stone fragment
Estimated Blood Loss: 0
Complications: none
Operative Findings: distal right ureteral struvite stone
Right 6 Fr 24 cm JJ ureteral stent
--- NOTE | 2024-02-29 13:36 | PTCARENOTE ---
Pt arrived back to [facility] from PACU s/p R uretero laser lithro. Pt on 2L NC satting 96%, pt states no pain at this time. Pt re-oriented to call house and room, bed locked and in lowest position, call house within reach.
[2024-02-29] MEDS: KCL 40 MEQ PO (13:48)
--- NOTE | 2024-02-29 16:38 | W.PN.ID1 ---
Date of Service
Date of Service: February 29, 2024
Today's Communication
Continue antibiotics. See below�
Assessment / Plan
Leukocytosis
Complicated urinary tract infection 2* Proteus mirabilis
Suspected pyelonephritis
Obstructive uropathy
- s/p stone removal
Renal insufficiency; improved
Transaminitis
HTN
Dyslipidemia
Pelvic organ prolapse with pessary
Hx UTI
Recommendations:
Urine culture with Proteus mirabilis.
--> Continue with ampicillin 2 g IV every 6 hours. (d#6 abx)
- at D/C would change to amoxicillin 1000 mg PO q8h, to continue through 03/09/2024
Monitor white count and temperature curve.
Continue supportive measures.
Chief Complaint
-: Leukocytosis and UTI
Subjective / Review of Systems
Patient seen and examined. Status post OR.
Vital Signs / Physical Exam
Vital Signs
Vital Signs
Temp Pulse Resp BP Pulse Ox
98.6 F 96 19 135/67 93
02/29/24 15:34 02/29/24 15:34 02/29/24 15:34 02/29/24 15:34 02/29/24 15:34
Physical Exam
Constitutional: No Acute Distress, Comfortable and Non-toxic
Eyes: Sclera Anicteric
Cardiovascular: S1/S2; Negative S3/S4
Pulmonary: Non Labored
Gastrointestinal: Soft and Non Distended
Neurological: Awake and Alert
Psychological: Calm
Objective Data
Lab Data
Lab Results
02/29/24 07:20
02/29/24 07:20
PT 15.8 Sec (11.4-14.6) H 02/25/24 02:16
INR 1.27 02/25/24 02:16
APTT 96.3 Sec (23.4-35.0) H 02/29/24 07:20
Estimated Creat Clear 79 ml/min 02/29/24 07:20
Lactic Acid Cancelled 02/25/24 08:13
Total Bilirubin 0.9 mg/dl (0.2-1.3) 02/28/24 05:08
AST 34 U/L (14-36) 02/28/24 05:08
ALT 32 U/L (0-35) 02/28/24 05:08
Alkaline Phosphatase 154 U/L (38-126) H 02/28/24 05:08
Most recent labs reviewed.
Micro Results:
02/24/24 18:15 Blood Culture - Preliminary
Blood/Venous No Growth in 4 days- Final report to follow
02/24/24 18:15 Blood Culture - Preliminary
Blood/Venous No Growth in 4 days- Final report to follow
02/24/24 18:15 Urine Culture - Final
Urine Proteus mirabilis
Imaging:
02/24/2024 CT abdomen/pelvis: Moderate right hydronephrosis and severe perinephric fluid suggesting forniceal rupture due to a 7 mm distal right ureteral stone. Many additional tiny nonobstructing right renal stones are noted. A subcentimeter
hypodense left renal lesion is likely benign proteinaceous cyst. Moderate right lower lobe consolidation suggesting either atelectasis or pneumonia.
[2024-02-29] MEDS: DETROL LA 4 MG PO (17:04)
[2024-02-29] MEDS: LIPITOR 10 MG PO (17:04)
[2024-02-29] MEDS: HEPARIN 25000 UNITS/250 ML IV (18:09)
[2024-02-29] MEDS: ANUSOL HC 25 MG RECTAL (21:22)
[2024-02-29] MEDS: BENADRYL 50 MG PO (21:22)
[2024-03-01 00:29] LABS: APTT 76.1 Sec (23.4-35.0)
[2024-03-01 03:00] VITALS: BP 135/91
[2024-03-01] MEDS: AMPICILLIN 108 MG IV ×4 (03:54→21:35)
[2024-03-01 06:37] LABS: APTT 100.6 Sec (23.4-35.0)
[2024-03-01 08:30] VITALS: BP 139/88
[2024-03-01] MEDS: MIRALAX 17 GRAMS PO (09:29)
[2024-03-01] MEDS: CARDIZEM CD 180 MG PO ×2 (09:30→19:57)
[2024-03-01] MEDS: THERAGRAN 1 TABLET PO (09:30)
[2024-03-01] MEDS: HEPARIN 25000 UNITS/250 ML IV (09:35)
--- NOTE | 2024-03-01 10:12 | W.PN.HOSP.TC ---
Today's Communication/Plan
-
see bold
Assessment / Plan
Assessment / Plan
Gen: NAD, AAOx3.
Eyes: continues to remain EOMI, PERRLA, no scleral icterus.
Neck: supple.
CV: tachy, irreg/irreg, +S1/S2, no m/r/g.
Resp: remains CTAB anteriorly, no rales, wheezes, or rhonchi.
Abd: remains +BS, soft, NT, ND
Skin: No rashes.
Neuro: CN 2-12 intact, non-focal.
Psych: Normal mood and affect.
02/24/24 18:15 Blood/Venous Blood Culture - Final
No Growth - Final Report
02/24/24 18:15 Blood/Venous Blood Culture - Final
No Growth - Final Report
02/24/24 18:15 Urine Urine Culture - Final
Proteus mirabilis
Echo: Normal biventricular size and systolic function without regional wall motion abnormality. Estimated LVEF 55-60%. Mild concentric left ventricular hypertrophy. No significant valve disease. No prior study available for comparison.
CT A/P: Moderate right hydronephrosis and severe perinephric fluid suggesting forniceal rupture due to a 7 mm distal right ureteral stone. New. Many additional tiny nonobstructing right renal stones. New. Subcentimeter hypodense left renal lesions
likely benign proteinaceous cyst. Stable. Moderate right lower lobe consolidation suggesting pneumonia versus atelectasis. New. Tiny loculated right pleural effusion. New. Moderate fecal material throughout the colon. Stable.
Sepsis and ROSALINA, POA, due to R-sided pyelonephritis due to right ureterolithiasis:
-CT A/P above
-lactic acidosis, resolved
-Leukocytosis improving
-ROSALINA resolved with IVFs
-s/p cystoscopy with manipulation of obstructing right ureteral calculus, right ureteral stenting (6-Hebrew, 20 cm) and right retrograde pyelography on 02/24/24
-s/p right ureteroscopy, laser lithotripsy, basket extraction of stone fragments, stent exchange on 02/29/24
-cont Ampicillin for Proteus as per ID
Afib with RVR:
-was on cardizem gtt, now transitioned to PO Cardizem
-cont heparin gtt, likely transition to DOAC today (pt now agreeable to eliquis)
-echo above
Mild rectal bleeding:
-GI saw in c/s
-trend Hb
Obesity due to excess calories:
-encourage weight loss
-Affects aspects of care
Hypokalemia:
-s/p PO K
FULL/Heparin gtt
Anticipated Discharge: Within 24 hours
Subjective/Interval History
-
Date of Service: March 01, 2024
No new complaints. Denies melena/hematuria.
Objective Data
-
Labs:
Laboratory Results
03/01/24 03/01/24
00:10 06:15
APTT 76.1 H 100.6 H
Vital Signs:
Vital Signs
Temp Pulse Resp BP Pulse Ox
98.4 F 126 20 139/88 90
03/01/24 08:30 03/01/24 08:30 03/01/24 08:30 03/01/24 08:30 03/01/24 08:30
I&O
02/29/24 03/01/24 03/02/24
06:59 06:59 06:59
Intake Total 1176 / 1176 1276 / 1276
Balance 1176 / 1176 1276 / 1276
--- NOTE | 2024-03-01 10:20 | W.PN.ID1 ---
Date of Service
Date of Service: March 01, 2024
Today's Communication
Continue abx.
Assessment / Plan
Leukocytosis
Complicated urinary tract infection 2* Proteus mirabilis
Suspected pyelonephritis
Obstructive uropathy
- s/p stone removal
Renal insufficiency; improved
Transaminitis
HTN
Dyslipidemia
Pelvic organ prolapse with pessary
Hx UTI
Recommendations:
Urine culture with Proteus mirabilis.
--> Continue with ampicillin 2 g IV every 6 hours. (d#7 abx)
- at D/C, change to amoxicillin 1000 mg PO q8h, to continue through 03/09/2024
Monitor white count and temperature curve.
Continue supportive measures.
Chief Complaint
-: Leukocytosis and UTI
Subjective / Review of Systems
Review of Systems: No Fever, No Chills and No Dysuria
Vital Signs / Physical Exam
Vital Signs
Vital Signs
Temp Pulse Resp BP Pulse Ox
98.4 F 126 20 139/88 90
03/01/24 08:30 03/01/24 08:30 03/01/24 08:30 03/01/24 08:30 03/01/24 08:30
Physical Exam
Constitutional: No Acute Distress, Comfortable and Non-toxic
Eyes: No Conjunctival Hemorrhage and Sclera Anicteric
Cardiovascular: S1/S2; Negative S3/S4
Pulmonary: Clear; Negative Wheezes, Rales or Rhonchi
Gastrointestinal: Soft, Non Tender and Non Distended
Extremities: Negative Erythema
Neurological: Awake and Alert
Psychological: Calm
Objective Data
Lab Data
PT 15.8 Sec (11.4-14.6) H 02/25/24 02:16
INR 1.27 02/25/24 02:16
APTT 100.6 Sec (23.4-35.0) H 03/01/24 06:15
Estimated Creat Clear 79 ml/min 02/29/24 07:20
Lactic Acid Cancelled 02/25/24 08:13
Total Bilirubin 0.9 mg/dl (0.2-1.3) 02/28/24 05:08
AST 34 U/L (14-36) 02/28/24 05:08
ALT 32 U/L (0-35) 02/28/24 05:08
Alkaline Phosphatase 154 U/L (38-126) H 02/28/24 05:08
Most recent labs reviewed.
Micro Results:
02/24/24 18:15 Blood Culture - Final
Blood/Venous No Growth - Final Report
02/24/24 18:15 Blood Culture - Final
Blood/Venous No Growth - Final Report
02/24/24 18:15 Urine Culture - Final
Urine Proteus mirabilis
Imaging:
02/24/2024 CT abdomen/pelvis: Moderate right hydronephrosis and severe perinephric fluid suggesting forniceal rupture due to a 7 mm distal right ureteral stone. Many additional tiny nonobstructing right renal stones are noted. A subcentimeter
hypodense left renal lesion is likely benign proteinaceous cyst. Moderate right lower lobe consolidation suggesting either atelectasis or pneumonia.
[2024-03-01 11:00] LABS: Hematocrit 32.4 % (37.0-47.0); Hemoglobin 11.3 g/dL (12.0-16.0); Mean Corp Hgb Conc. 34.9 g/dL (33.0-37.0); Mean Corpuscular Hgb 31.9 pg (27.0-31.0); Mean Corpuscular Volume 91.5 fL (81.0-99.0); Mean Platelet Volume 9.7 fL (7.4-10.4); Platelet Count 343 10^3/uL (130-400); Red Blood Cell Count 3.54 10^6/uL (4.20-5.40); Red Cell Dist. Width 13.6 % (11.5-14.5)
--- NOTE | 2024-03-01 11:13 | W.PN.CD ---
Addendum entered and electronically signed by Daniele Kenney MD 03/01/24 12:08:
I saw and examined the patient.
The CLIENT RELATIONS SPECIALIST's note was reviewed and I agree with the note.
Comment:
Likely KASSANDRA DCCV tomorrow if ok from urology
Original Note:
Today's Communication / Plan
-
-continue diltiazem and follow telemetry
-replace potassium and check mag
-give dose IV Lasix today
-if no further plans for procedures and okay to start Eliquis (transition off heparin), consider KASSANDRA/CV in AM (still to discuss with patient and medical team)
Impression / Plan
-
New onset atrial fibrillation RVR:
-on setting of obstructing ureteral stone, sepsis
-now on PO diltiazem- rates mildly elevated at times, but overall acceptable for the clinical scenario.
-[id number] score is 3. Currently on IV heparin, transition to Eliquis 5 mg PO BID when okay per urology.
-echo with normal LVEF
-if no plans for further procedures, could set up for KASSANDRA/CV- will review with patient and medical team
NSVT:
-2 brief runs on telemetry in past 24 hours, but hypokalemia was noted
-EF normal
-replace potassium, check mag, follow telemetry
right ureteral stone status post placement of right ureteral stent on 02/24/2024:
-Urology following, s/p right ureteroscopy, laser lithotripsy, basket extraction of stone fragments, stent exchange (02/24/24)
-ID following as well- cont antibiotics
Hypertension:
-Stable on diltiazem
-takes HCTZ at home for HTN and stones- currently held
Hyperlipidemia:
-continue statin therapy
ROSALINA: resolved s/p ureteral stent
Iatrogenic volume overload:
-denies SOB, but does appear volume overloaded to my assessment with moderate BLE edema, O2 sat on low end, rales to assessment
-additional lasix today- 20 IV
-LE edema wearing tubigrips
-she received 4L IVF this admit
-denies any SOB
-put in for daily weights
Subjective:
Feeling well, denies SOB
02/27/2024: Echo
Normal biventricular size and systolic function without regional wall motion
abnormality. Estimated LVEF 55-60%.
Mild concentric left ventricular hypertrophy.
No significant valve disease.
Physical Exam
Vital Signs/Labs
Vital Signs
Temp Pulse Resp BP Pulse Ox
98.4 F 126 20 139/88 90
03/01/24 08:30 03/01/24 08:30 03/01/24 08:30 03/01/24 08:30 03/01/24 08:30
03/01/24 10:39
PT 15.8 Sec (11.4-14.6) H 02/25/24 02:16
INR 1.27 02/25/24 02:16
APTT 100.6 Sec (23.4-35.0) H 03/01/24 06:15
Magnesium 1.6 mg/dl (1.6-2.3) 02/28/24 05:08
Physical Exam
Constitutional: No acute distress
EENT: Anicteric
Cardiovascular: Rhythm/rate is irregular and Pedal edema present (moderate BLE edema)
Respiratory: Respiratory effort normal and Crackles Present (b/l bases)
Neuro/Psych: AO x 3
Data Reviewed
-
Date of Service: March 01, 2024
EKG: Other (Tele AFIB rates mildly fast, 2 short runs of NSVT in past 24 hours (5 beats))
Labs: Labs Reviewed by me
[2024-03-01 11:16] LABS: Blood Urea Nitrogen 20 mg/dl (7-17); Calcium 8.8 mg/dl (8.4-10.2); Carbon Dioxide 24 mmol/L (22-30); Chloride 105 mmol/L (98-107); Estimated Creatinine Clearance 79 ml/min; Glucose 239 mg/dl (70-99); Magnesium 1.8 mg/dl (1.6-2.3); Potassium 3.7 mmol/L (3.5-5.1); Sodium 137 mmol/L (135-145); eGFR > 60.00
[2024-03-01 11:37] LABS: Glucose - Point of Care 182 mg/dl (70-99)
[2024-03-01 11:46] VITALS: BMI 37.5
[2024-03-01] MEDS: KLOR-CON 20 MEQ PO ×2 (12:22→17:02)
[2024-03-01] MEDS: LASIX 20 MG IV (12:22)
[2024-03-01] MEDS: FLUSH (NSS) 2 FLUSH IV (12:22)
--- NOTE | 2024-03-01 12:38 | CM ---
Addendum entered by Nina Gale RN 03/01/24 15:59:
IMM signed and placed on chart.
Original Note:
Cost of Eliquis 5mg bid x 30days per [facility] is $47/month. Eliquis coupon for 30 days free provided to the patient.
[2024-03-01 13:40] VITALS: BP 118/77
--- NOTE | 2024-03-01 15:14 | W.PN.UPDATE ---
Update Note
Progress Note Update
Dr. Kenney discussed case with urology.
We will plan to transition to Eliquis tonight from heparin (discussed with nursing and put in order to stop heparin tonight when Eliquis is given). NPO after MN. Get Eliquis in AM, but hold diltiazem prior to CV- discussed with RN and note in
computer.
seed laboratory technician charge made aware of plan for KASSANDRA/CV for patient.
[2024-03-01] MEDS: LIPITOR 10 MG PO (17:06)
[2024-03-01] MEDS: DETROL LA 4 MG PO (17:06)
[2024-03-01 19:25] VITALS: BP 135/73
[2024-03-01] MEDS: ELIQUIS 5 MG PO (19:58)
[2024-03-01] MEDS: BENADRYL 50 MG PO (21:33)
[2024-03-01] MEDS: ANUSOL HC RECTAL (21:36)
[2024-03-01 22:56] VITALS: BP 139/89
[2024-03-01] MEDS: ZOFRAN 4 MG IV (23:05)
[2024-03-02] MEDS: AMPICILLIN 108 MG IV ×4 (03:02→22:07)
[2024-03-02 03:08] VITALS: BP 135/85
[2024-03-02 05:29] LABS: Hematocrit 31.2 % (37.0-47.0); Hemoglobin 10.4 g/dL (12.0-16.0); Mean Corp Hgb Conc. 33.3 g/dL (33.0-37.0); Mean Corpuscular Hgb 31.4 pg (27.0-31.0); Mean Corpuscular Volume 94.3 fL (81.0-99.0); Mean Platelet Volume 9.8 fL (7.4-10.4); Platelet Count 322 10^3/uL (130-400); Red Blood Cell Count 3.31 10^6/uL (4.20-5.40); Red Cell Dist. Width 13.7 % (11.5-14.5); White Blood Cell Count 15.1 10^3/uL (4.8-10.8)
[2024-03-02 05:41] LABS: APTT 33.6 Sec (23.4-35.0)
[2024-03-02 05:53] VITALS: BMI 37.2
[2024-03-02 06:03] LABS: Blood Urea Nitrogen 19 mg/dl (7-17); Carbon Dioxide 22 mmol/L (22-30); Chloride 109 mmol/L (98-107); Estimated Creatinine Clearance 70 ml/min; Glucose 120 mg/dl (70-99); Potassium 4.3 mmol/L (3.5-5.1); Sodium 139 mmol/L (135-145); eGFR > 60.00
[2024-03-02] MEDS: ELIQUIS 5 MG PO ×2 (07:27→19:49)
[2024-03-02 07:39] VITALS: BP 127/82
--- NOTE | 2024-03-02 08:30 | W.PN.HOSP.TC ---
Today's Communication/Plan
-
d/c
Assessment / Plan
Assessment / Plan
Gen: NAD, AAOx3.
Eyes: continues to remain EOMI, PERRLA, no scleral icterus.
Neck: supple.
CV: RRR with occasional premature beats, +S1/S2, no m/r/g.
Resp: CTAB anteriorly, no rales, wheezes, or rhonchi.
Abd: +BS, soft, NT, ND
Skin: No rashes.
Neuro: remains CN 2-12 intact, non-focal.
Psych: Normal mood and affect.
02/24/24 18:15 Blood/Venous Blood Culture - Final
No Growth - Final Report
02/24/24 18:15 Blood/Venous Blood Culture - Final
No Growth - Final Report
02/24/24 18:15 Urine Urine Culture - Final
Proteus mirabilis
Echo: Normal biventricular size and systolic function without regional wall motion abnormality. Estimated LVEF 55-60%. Mild concentric left ventricular hypertrophy. No significant valve disease. No prior study available for comparison.
CT A/P: Moderate right hydronephrosis and severe perinephric fluid suggesting forniceal rupture due to a 7 mm distal right ureteral stone. New. Many additional tiny nonobstructing right renal stones. New. Subcentimeter hypodense left renal lesions
likely benign proteinaceous cyst. Stable. Moderate right lower lobe consolidation suggesting pneumonia versus atelectasis. New. Tiny loculated right pleural effusion. New. Moderate fecal material throughout the colon. Stable.
Sepsis and ROSALINA, POA, due to R-sided pyelonephritis due to right ureterolithiasis:
-CT A/P above
-lactic acidosis, resolved
-Leukocytosis improving
-ROSALINA resolved with IVFs
-s/p cystoscopy with manipulation of obstructing right ureteral calculus, right ureteral stenting (6-Tanzanian, 20 cm) and right retrograde pyelography on 02/24/24
-s/p right ureteroscopy, laser lithotripsy, basket extraction of stone fragments, stent exchange on 02/29/24
-cont Ampicillin for Proteus as per ID
Afib with RVR:
-was on cardizem gtt, now transitioned to PO Cardizem
-was on heparin gtt, now transitioned to Eliquis
-echo above
-s/p TEECV to SR 03/02/24
Mild rectal bleeding:
-GI saw in c/s
-Hb stable
Obesity due to excess calories:
-encourage weight loss
-Affects aspects of care
Hypokalemia, resolved
FULL/Eliquis
Medically cleared for d/c.
Total time spent on d/c = 34 min. This included today's physical exam, progress note, review of laboratory and diagnostic data, preparation of discharge documents and prescriptions, and discussions about the pt's hospital course and discharge plan
with the patient and other medical social consultant involved in the patient's care.
Anticipated Discharge: Today
Subjective/Interval History
-
Date of Service: March 02, 2024
c/o nausea
Objective Data
-
Labs:
Laboratory Results
03/02/24
05:06
WBC 15.1 H
Hgb 10.4 L
Hct 31.2 L
Plt Count 322
APTT 33.6
Sodium 139
Potassium 4.3
Chloride 109 H
Carbon Dioxide 22
BUN 19 H
Creatinine 0.8
Glucose 120 H
Calcium 9.0
Vital Signs:
Vital Signs
Temp Pulse Resp BP Pulse Ox
97.7 F 91 18 127/82 96
03/02/24 07:39 03/02/24 07:39 03/02/24 07:39 03/02/24 07:39 03/02/24 07:39
I&O
03/01/24 03/02/24 03/03/24
06:59 06:59 06:59
Intake Total 1276 / 1276 460 / 460
Balance 1276 / 1276 460 / 460
--- NOTE | 2024-03-02 10:10 | ITS.CL.CARDI ---
Nutrition Coordinator - Cardioversion
Cardioversion
Procedure Report:
Procedure: KASSANDRA-guided electrical cardioversion
Pre-operative diagnosis: Persistent atrial fibrillation
Post-operative diagnosis: Persistent atrial fibrillation status post DC cardioversion to sinus rhythm
Anesthesia: MAC
Attending Physician: William Kwong MD
Procedure Description: The patient was brought to the electrophysiology laboratory in the fasting state. Informed consent was obtained from the patient prior to the start of the procedure. Adherence to anticoagulation was confirmed. Electrodes were
placed on the patient and connected to an external defibrillator. Monitoring of blood pressure, ECG tracings, and pulse oximetry was initiated. The pads were applied to the patient in the anterior and posterior positions. The patient was sedated by
the anesthesiologist. A KASSANDRA (reported separately) was performed prior to the cardioversion. No left atrial or left atrial appendage thrombus was seen. After the KASSANDRA probe was removed, a 200 joule biphasic synchronized shock was delivered to the
patient under MAC anesthesia. Sinus rhythm was successfully restored. The patient recovered uneventfully from MAC anesthesia. There were no immediate post-procedure complications. The patient left the lab in good condition. The attending physician
was present throughout the entire procedure.
Impression: Successful KASSANDRA-guided direct current cardioversion with catholic of sinus rhythm after one 200 joule biphasic synchronized shock.
--- NOTE | 2024-03-02 11:31 | W.PN.URO.CBU ---
Today's Communication / Plan
-
pt will f/u as outpatient for removal of ureteral stent
Assessment / Plan
-
Proteus urosepsis
Obstructing right ureteral stone [presumed struvite composition] -- alleviated by stent
progressively improving leukocytosis and other indicators of sepsis
Diagnosis
-
Date of Service: March 02, 2024
-
Patient Diagnosis:
Right ureteral stone: 7 mm, obstructing
Urosepsis -- Proteus
emergently to OR to alleviate obstruction by placement of a right ureteral stent on 02/24/24 ~ 730 PM
02/29/2024 Right Ureteroscopy, stone fragmentation and removal, stent exchange
Post Op Day: 7 & 2
Subjective
-
'feeling better every day'
Objective
-
Vital Signs
Temp Pulse Resp BP Pulse Ox
97.7 F 91 18 127/82 96
03/02/24 07:39 03/02/24 07:39 03/02/24 07:39 03/02/24 07:39 03/02/24 07:39
Intake and Output
03/01/24 03/02/24 03/03/24
06:59 06:59 06:59
Intake Total 1276 / 1276 460 / 460
Balance 1276 / 1276 460 / 460
Intake:
Oral fluids 960 / 960 240 / 240
IV fluids (Total) 100 / 100
Normosal 100 / 100
IV piggybacks 216 / 216 220 / 220
Other:
Number of approximated MODERATE 4 1
amounts of urine
Number of approximated LARGE 1
amounts of urine
Laboratory Results
03/02/24 05:06
03/02/24 05:06
Physical Exam
-
General - well developed, well nourished, no acute distress
Chest - clear bilaterally
Abdomen - soft, non-tender, positive bowel sounds, no CVAT, no incisional pain or distention
Genitalia - normal
Rectal - normal
Skin - warm & dry with no rash
Neuro - AOx3, no motor deficits
Extremities - no clubbing, no cyanosis, no edema
Incision - clean, dry
Dressing - clean, dry, intact
[2024-03-02 11:34] VITALS: BP 126/72
--- NOTE | 2024-03-02 11:40 | PTCARENOTE ---
Patient returned to her room from laboratory cureman.She had a KASSANDRA which showed she did not have any clots.She also had a cardioversion and is now in normal sinus rhythm with pac's.Vital signs are stable.Patient still reporting some nausea.She received Zofran
in the laboratory cureman before she returned to the floor.
[2024-03-02] MEDS: MIRALAX PO (12:30)
[2024-03-02] MEDS: THERAGRAN 1 TABLET PO (12:31)
[2024-03-02] MEDS: CARDIZEM CD 180 MG PO ×2 (12:31→19:53)
--- NOTE | 2024-03-02 13:34 | W.PN.ID1 ---
Date of Service
Date of Service: March 02, 2024
Today's Communication
At D/C, change to amoxicillin 1000 mg PO q8h, to continue through 03/09/2024
Assessment / Plan
Leukocytosis improved today
Complicated urinary tract infection 2* Proteus mirabilis
Suspected pyelonephritis
Obstructive uropathy
- s/p stone removal
Renal insufficiency; improved
Transaminitis
HTN
Dyslipidemia
Pelvic organ prolapse with pessary
Hx UTI
Recommendations:
Urine culture with Proteus mirabilis.
--> Continue with ampicillin 2 g IV every 6 hours. (d#8 abx)
- at D/C, change to amoxicillin 1000 mg PO q8h, to continue through 03/09/2024
Monitor white count and temperature curve.
Continue supportive measures.
Chief Complaint
-: Leukocytosis and UTI
Subjective / Review of Systems
+ nausea
No dysuria
Vital Signs / Physical Exam
Vital Signs
Vital Signs
Temp Pulse Resp BP Pulse Ox
97.6 F 71 18 126/72 96
03/02/24 11:34 03/02/24 11:34 03/02/24 11:34 03/02/24 11:34 03/02/24 11:34
Physical Exam
Constitutional: No Acute Distress
Pulmonary: Clear
Genito-Urinary: Negative CVA Tenderness
Extremities: Negative Edema
Neurological: AO x 3
Objective Data
Lab Data
Lab Results
03/02/24 05:06
03/02/24 05:06
PT 15.8 Sec (11.4-14.6) H 02/25/24 02:16
INR 1.27 02/25/24 02:16
APTT 33.6 Sec (23.4-35.0) 03/02/24 05:06
Estimated Creat Clear 70 ml/min 03/02/24 05:06
Lactic Acid Cancelled 02/25/24 08:13
Total Bilirubin 0.9 mg/dl (0.2-1.3) 02/28/24 05:08
AST 34 U/L (14-36) 02/28/24 05:08
ALT 32 U/L (0-35) 02/28/24 05:08
Alkaline Phosphatase 154 U/L (38-126) H 02/28/24 05:08
Most recent labs reviewed.
Micro Results:
02/24/24 18:15 Blood Culture - Final
Blood/Venous No Growth - Final Report
02/24/24 18:15 Blood Culture - Final
Blood/Venous No Growth - Final Report
02/24/24 18:15 Urine Culture - Final
Urine Proteus mirabilis
Imaging:
02/24/2024 CT abdomen/pelvis: Moderate right hydronephrosis and severe perinephric fluid suggesting forniceal rupture due to a 7 mm distal right ureteral stone. Many additional tiny nonobstructing right renal stones are noted. A subcentimeter
hypodense left renal lesion is likely benign proteinaceous cyst. Moderate right lower lobe consolidation suggesting either atelectasis or pneumonia.
--- NOTE | 2024-03-02 13:51 | W.PN.CD ---
Addendum entered and electronically signed by Daniele Kenney MD 03/02/24 14:05:
F/u is on March 16 at 9 AM
Original Note:
Today's Communication / Plan
-
Continue Dilt and Eliquis
F/u in 2 weeks with COAL CUTTING MACHINE OPERATOR after DCCV to ensure NSR and then follow up thereafter.
We will sign off: please call with questions/concerns.
Impression / Plan
-
New onset atrial fibrillation RVR: s/p DCCV now in SR
-on setting of obstructing ureteral stone, sepsis
-cont dilt 180 mg bid
-[id number] score is 3. Currently on IV heparin, transition to Eliquis 5 mg PO BID when okay per urology.
NSVT:
-2 brief runs on telemetry in past 24 hours, but hypokalemia was noted
-EF normal
-replace potassium, check mag, follow telemetry
right ureteral stone status post placement of right ureteral stent on 02/24/2024:
-Urology following, s/p right ureteroscopy, laser lithotripsy, basket extraction of stone fragments, stent exchange (02/24/24)
-ID following as well- cont antibiotics
Hypertension:
-Stable on diltiazem
-takes HCTZ at home for HTN and stones- currently held
Hyperlipidemia:
-continue statin therapy
ROSALINA: resolved s/p ureteral stent
Iatrogenic volume overload:
-denies SOB, but does appear volume overloaded to my assessment with moderate BLE edema, O2 sat on low end, rales to assessment
-additional lasix today- 20 IV
-LE edema wearing tubigrips
-she received 4L IVF this admit
-denies any SOB
-put in for daily weights
Subjective:
Nauseous after DCCV slowly improving, otherwise no new complaints
02/27/2024: Echo
Normal biventricular size and systolic function without regional wall motion
abnormality. Estimated LVEF 55-60%.
Mild concentric left ventricular hypertrophy.
No significant valve disease.
Physical Exam
Vital Signs/Labs
Vital Signs
Temp Pulse Resp BP Pulse Ox
97.6 F 71 18 126/72 96
03/02/24 11:34 03/02/24 11:34 03/02/24 11:34 03/02/24 11:34 03/02/24 11:34
03/01/24 03/02/24 03/03/24
06:59 06:59 06:59
Actual Weight 203 lb 1 oz
03/02/24 05:06
03/02/24 05:06
PT 15.8 Sec (11.4-14.6) H 02/25/24 02:16
INR 1.27 02/25/24 02:16
APTT 33.6 Sec (23.4-35.0) 03/02/24 05:06
Magnesium 1.8 mg/dl (1.6-2.3) 03/01/24 10:39
Physical Exam
Constitutional: No acute distress
EENT: Anicteric
Cardiovascular: Rhythm & rate is regular and Pedal edema is absent
Respiratory: Respiratory effort normal and Lungs clear to auscul.
GI: Soft
Neuro/Psych: AO x 3
Data Reviewed
-
Date of Service: March 02, 2024
Medical Decision Making: Reviewed Test Results
EKG: Tracing Personally Visualized and interpreted (sr)
Echo: Report Reviewed by me
Labs: Labs Reviewed by me
[2024-03-02] MEDS: REGLAN 10 MG IV (14:25)
--- NOTE | 2024-03-02 14:37 | CM ---
Reviewed the chart notes. Patient is for discharge today to home. Patient's sister to transport. CM continues to be available to patient/family and is monitoring medical plan for needs at discharge.
Plan: Discharge to home today.
[2024-03-02 15:34] VITALS: BP 133/69
[2024-03-02] MEDS: DETROL LA 4 MG PO (17:37)
[2024-03-02] MEDS: LIPITOR 10 MG PO (17:37)
[2024-03-02 19:48] VITALS: BP 133/78
[2024-03-02] MEDS: ZOFRAN 4 MG IV (19:49)
[2024-03-02] MEDS: BENADRYL 50 MG PO (22:07)
[2024-03-02] MEDS: ANUSOL HC RECTAL (22:08)
[2024-03-02] MEDS: TYLENOL 650 MG PO (22:18)
[2024-03-02 23:42] VITALS: BP 142/68
[2024-03-03 01:56] VITALS: BMI 37.0
[2024-03-03] MEDS: AMPICILLIN 108 MG IV ×2 (03:07→08:58)
[2024-03-03 03:47] VITALS: BP 127/60
[2024-03-03 07:00] VITALS: BP 136/70
--- NOTE | 2024-03-03 07:59 | W.PN.HOSP.TC ---
Today's Communication/Plan
-
d/c
Assessment / Plan
Assessment / Plan
Gen: NAD, AAOx3.
Eyes: continues to remain EOMI, PERRLA, no scleral icterus.
Neck: supple.
CV: RRR with occasional premature beats, +S1/S2, no m/r/g.
Resp: CTAB anteriorly, no rales, wheezes, or rhonchi.
Abd: +BS, soft, NT, ND
Skin: No rashes.
Neuro: remains CN 2-12 intact, non-focal.
Psych: Normal mood and affect.
02/24/24 18:15 Blood/Venous Blood Culture - Final
No Growth - Final Report
02/24/24 18:15 Blood/Venous Blood Culture - Final
No Growth - Final Report
02/24/24 18:15 Urine Urine Culture - Final
Proteus mirabilis
Echo: Normal biventricular size and systolic function without regional wall motion abnormality. Estimated LVEF 55-60%. Mild concentric left ventricular hypertrophy. No significant valve disease. No prior study available for comparison.
CT A/P: Moderate right hydronephrosis and severe perinephric fluid suggesting forniceal rupture due to a 7 mm distal right ureteral stone. New. Many additional tiny nonobstructing right renal stones. New. Subcentimeter hypodense left renal lesions
likely benign proteinaceous cyst. Stable. Moderate right lower lobe consolidation suggesting pneumonia versus atelectasis. New. Tiny loculated right pleural effusion. New. Moderate fecal material throughout the colon. Stable.
Sepsis and ROSALINA, POA, due to R-sided pyelonephritis due to right ureterolithiasis:
-CT A/P above
-lactic acidosis, resolved
-Leukocytosis improving
-ROSALINA resolved with IVFs
-s/p cystoscopy with manipulation of obstructing right ureteral calculus, right ureteral stenting (6-Dominican, 20 cm) and right retrograde pyelography on 02/24/24
-s/p right ureteroscopy, laser lithotripsy, basket extraction of stone fragments, stent exchange on 02/29/24
-cont Ampicillin for Proteus as per ID
Afib with RVR:
-was on cardizem gtt, now transitioned to PO Cardizem
-was on heparin gtt, now transitioned to Eliquis
-echo above
-s/p TEECV to SR 03/02/24
Mild rectal bleeding:
-GI saw in c/s
-Hb stable
Obesity due to excess calories:
-encourage weight loss
-Affects aspects of care
Hypokalemia, resolved
FULL/Eliquis
Pt was discharged 03/02/24 and remains medically cleared for d/c.
Total time spent on d/c = 31 min. This included today's physical exam, progress note, review of laboratory and diagnostic data, preparation of discharge documents and prescriptions, and discussions about the pt's hospital course and discharge plan
with the patient and other medical concierge involved in the patient's care.
Anticipated Discharge: Today
Subjective/Interval History
-
Date of Service: March 03, 2024
No new complaints.
Objective Data
-
Vital Signs:
Vital Signs
Temp Pulse Resp BP Pulse Ox
98.9 F 80 22 127/60 95
03/03/24 03:47 03/03/24 03:47 03/03/24 03:47 03/03/24 03:47 03/03/24 03:47
I&O
03/02/24 03/03/24 03/04/24
06:59 06:59 06:59
Intake Total 460 / 460
Balance 460 / 460
[2024-03-03] MEDS: MIRALAX PO ×2 (08:57→09:10)
[2024-03-03] MEDS: THERAGRAN 1 TABLET PO (08:57)
[2024-03-03] MEDS: CARDIZEM CD 180 MG PO (08:57)
[2024-03-03] MEDS: ELIQUIS 5 MG PO (08:57)
[2024-03-03 11:18] VITALS: BP 141/68
--- NOTE | 2024-03-03 14:02 | W.DCSUMMARY ---
Discharge Summary
Discharge Data
Date of Admission: 02/24/24
Date of Discharge: 03/03/24
-
Pending Results: No
Hospital Course
Primary diagnoses:
Sepsis and acute kidney injury due to right-sided pyelonephritis due to right ureterolithiasis s/p cystoscopy with manipulation of obstructing right ureteral calculus, right ureteral stenting (6-Wallisian, 20 cm) and right retrograde pyelography on
02/24/24 s/p right ureteroscopy, laser lithotripsy, basket extraction of stone fragments, stent exchange on 02/29/24
Atrial fibrillation with rapid ventricular response status post cardioversion
Secondary diagnoses:
Mild rectal bleeding
Obesity due to excess calories
Hypokalemia
Consultants:
Cardiology
Gastroenterology
Infectious disease
Urology
Imaging:
Echo: Normal biventricular size and systolic function without regional wall motion abnormality. Estimated LVEF 55-60%. Mild concentric left ventricular hypertrophy. No significant valve disease. No prior study available for comparison.
CT A/P: Moderate right hydronephrosis and severe perinephric fluid suggesting forniceal rupture due to a 7 mm distal right ureteral stone. New. Many additional tiny nonobstructing right renal stones. New. Subcentimeter hypodense left renal lesions
likely benign proteinaceous cyst. Stable. Moderate right lower lobe consolidation suggesting pneumonia versus atelectasis. New. Tiny loculated right pleural effusion. New. Moderate fecal material throughout the colon. Stable.
68-year-old female presented with chief complaints of abdominal pain and nausea as outlined in H&P done on admission. Hospital course per problem list:
Sepsis and acute kidney injury due to right-sided pyelonephritis due to right ureterolithiasis: Imaging above. The patient had a lactic acidosis which resolved. Her leukocytosis overall resolved. Her acute kidney injury resolved with IV fluids.
The patient underwent cystoscopy with manipulation of obstructing right ureteral calculus, right ureteral stenting (6-Wallisian, 20 cm) and right retrograde pyelography on 02/24/24 and right ureteroscopy, laser lithotripsy, basket extraction of stone
fragments, stent exchange on 02/29/24. Urine culture grew Proteus. The patient was on ampicillin and then transition to amoxicillin on discharge.
Afib with RVR: Patient was initially on a Cardizem drip and then transitioned to oral Cardizem. She was on a heparin drip and then transition to Eliquis. Echocardiogram above. The patient underwent KASSANDRA cardioversion to sinus rhythm on March 02,
2023.
Discharge Plan
-
Patient Disposition: Home (Routine Discharge)
Discharge Diagnosis/Procedures: Sepsis and acute kidney injury due to right-sided pyelonephritis due to right ureterolithiasis s/p cystoscopy with manipulation of obstructing right ureteral calculus, right ureteral stenting (6-Wallisian, 20 cm) and
right retrograde pyelography on 02/24/24
s/p right ureteroscopy, laser lithotripsy, basket extraction of stone fragments, stent exchange on 02/29/24. Atrial fibrillation with rapid ventricular response status post cardioversion
Condition: Good
Diet: Low Cholesterol
Activity: As tolerated
Driving Restrictions: As prior to admission
Blood Work: BMP and CBC in 1 week, script from PCP
Referrals:
Isabelle Bond NP [Specified Professional Personl] - 03/16/24 9:00 am (March 16, 2024, at 9:00 am)
Kadeem Flaherty MD [Active] - (call to schedule 'stent removal' during last week of February)
Hipolito Hernandez MD [Family Provider] - in less than 1 week
Prescriptions:
New
amoxicillin 500 mg capsule
1,000 mg PO Q8H Qty: 48 0RF
Eliquis 5 mg Tablet
5 mg PO BID Qty: 60 0RF
atorvastatin 10 mg Tablet
10 mg PO QPM Qty: 30 0RF
diltiazem HCl 180 mg Capsule,Extended Release 24hr
180 mg PO BID Qty: 60 0RF
hydrocortisone acetate 25 mg Suppository
25 mg MS HS Qty: 30 0RF
ondansetron HCl 4 mg tablet
4 mg PO Q8H PRN (Reason: nausea and vomiting) 5 Days Qty: 10 0RF
Continued
flaxseed oil 1,000 MG capsule
1,000 mg PO QPM
Calcium 600 + D(3) 1 EACH capsule
1 ea PO BID
estradiol 0.01 % (0.1 mg/gram) Cream
1 g VAGINAL TUSA
darifenacin 15 mg Tablet Extended Release 24 Hr
15 mg PO QPM
therapeutic multivitamin Tablet
1 tab PO DAILY
ascorbic acid (vitamin C) [Vitamin C With Bety Hips] 500 mg Tablet
500 mg PO BID
glucosamine-chondroitin [Cosamin DS] 500-400 mg Tablet
1 tab PO QPM
Visbiome 112.5 billion cell Capsule
1 cap PO DAILY
diphenhydramine HCl [Unisom SleepGels] 50 mg Capsule
50 mg PO HS
polyethylene glycol 3350 [Miralax] 17 gram Powder In Packet
17 g PO ONCE
docusate sodium 100 mg Capsule
100 mg PO DAILY PRN (Reason: constipation)
Discontinued
simvastatin 20 MG tablet
20 mg PO QPM
hydrochlorothiazide 50 mg Tablet
50 mg PO DAILY
aspirin 81 mg Tablet,Delayed Release (Dr/Ec)
81 mg PO QPM
ibuprofen-acetaminophen [Dual Action Pain Reliever] 125-250 mg Tablet
2 tab PO Q6H
Discharge Orders:
Discharge Patient (As Directed); Ordered 03/02/24
Ordered By: Saurav Richard
Discharge Date and Time
Discharge Date/Time: 03/03/24 12:25
Print Language: SENEGALESE
[2024-03-07 09:58] LABS: Stone Analysis Mass 6 mg
== END 2024-03-03 12:25 | disposition home or self-care (01) | DRG 854 ==
LOC: 2 SOUTH 19:44
PROVIDERS: Hospitalist; Internal Medicine Cardiovascular Disease; Nurse Practitioner; Nurse Practitioner Primary Care; Specialist; ADMITTING PHYSICIAN Internal Medicine; ATTENDING PHYSICIAN Internal Medicine; CONSULT PHYSICIAN Internal Medicine; CONSULT PHYSICIAN Internal Medicine Gastroenterology; CONSULT PHYSICIAN Internal Medicine Infectious Disease; EMERGENCY PHYSICIAN Emergency Medicine; FAMILY PHYSICIAN Internal Medicine
PROC: 0T768DZ Dilation of Right Ureter with Intraluminal Device, Via Natural or Artificial Opening Endoscopic (ICD-10-PCS; 2024-02-24)
PROC: BT1D1ZZ Fluoroscopy of Right Kidney, Ureter and Bladder using Low Osmolar Contrast (ICD-10-PCS; 2024-02-24)
PROC: 0TP98DZ Removal of Intraluminal Device from Ureter, Via Natural or Artificial Opening Endoscopic (ICD-10-PCS; 2024-03-01)
PROC: 0TC68ZZ Extirpation of Matter from Right Ureter, Via Natural or Artificial Opening Endoscopic (ICD-10-PCS; 2024-03-01)
PROC: 5A2204Z Restoration of Cardiac Rhythm, Single (ICD-10-PCS; 2024-03-02)
PROC: B24BZZ4 Ultrasonography of Heart with Aorta, Transesophageal (ICD-10-PCS; 2024-03-02)
DX: A41.59 Other Gram-negative sepsis (principal); E87.20 Acidosis, unspecified; I48.19 Other persistent atrial fibrillation; N17.9 Acute kidney failure, unspecified; N13.6 Pyonephrosis; N20.2 Calculus of kidney with calculus of ureter; K62.5 Hemorrhage of anus and rectum; J98.11 Atelectasis; I47.20 Ventricular tachycardia, unspecified; I11.9 Hypertensive heart disease without heart failure; E88.09 Other disorders of plasma-protein metabolism, not elsewhere classified; K59.00 Constipation, unspecified; K57.30 Diverticulosis of large intestine without perforation or abscess without bleeding; K64.9 Unspecified hemorrhoids; R74.01 Elevation of levels of liver transaminase levels; R11.2 Nausea with vomiting, unspecified; E87.6 Hypokalemia; E66.09 Other obesity due to excess calories; E87.70 Fluid overload, unspecified; B96.4 Proteus (mirabilis) (morganii) as the cause of diseases classified elsewhere; E78.00 Pure hypercholesterolemia, unspecified; Z87.442 Personal history of urinary calculi; Z87.440 Personal history of urinary (tract) infections; Z88.1 Allergy status to other antibiotic agents; Z88.2 Allergy status to sulfonamides; Q63.2 Ectopic kidney; Z87.19 Personal history of other diseases of the digestive system; Z86.010 Personal history of colon polyps; Z83.719 Family history of colon polyps, unspecified; Z79.82 Long term (current) use of aspirin; Z68.36 Body mass index [BMI] 36.0-36.9, adult
CPT/HCPCS: 51701; 71046; 74018; 74176; 74420; 76000; 80048; 80053; 80076; 81003; 81015; 82248; 82365; 82962; 83605; 83735; 84145; 84443; 84484; 85025; 85027; 85610; 85730; 87040; 87077; 87086; 87186; 92960; 93005; 93306; 93312; 93320; 93325; 96361; 96374; 96375; 99285; C1894; C2617

== ENCOUNTER → 2024-05-10 17:32 | Outpatient (REF) | payer MEDICARE, OTHER, SELFPAY | LOC: RAD 17:32 | PROVIDERS: ATTENDING PHYSICIAN Internal Medicine | DX: R07.89 Other chest pain (principal); R09.89 Other specified symptoms and signs involving the circulatory and respiratory systems | CPT/HCPCS: 71046; 71100 ==

== ENCOUNTER → 2024-05-29 12:25 | Outpatient (REF) | payer MEDICARE, OTHER, SELFPAY | LOC: RAD 12:25 | PROVIDERS: ATTENDING PHYSICIAN Internal Medicine | DX: Z87.01 Personal history of pneumonia (recurrent) (principal); Z87.09 Personal history of other diseases of the respiratory system | CPT/HCPCS: 71046 ==

== ENCOUNTER → 2024-06-08 12:35 | Outpatient (REF) | payer MEDICARE, OTHER, SELFPAY | LOC: RAD 12:35 | PROVIDERS: ATTENDING PHYSICIAN Internal Medicine | DX: J18.9 Pneumonia, unspecified organism (principal); J90 Pleural effusion, not elsewhere classified | CPT/HCPCS: 71046 ==

== ENCOUNTER → 2024-06-13 14:37 | Outpatient (REF) | payer MEDICARE, OTHER, SELFPAY ==
--- NOTE | 2024-02-24 19:29 | W.SUR.PREOP ---
Pre-Operative Surgical Note
-
I have examined this patient prior to the performance of the scheduled procedure.
Consent signed.
--- NOTE | 2024-02-24 19:32 | CONS.URO ---
Consultation
-
Date/Time Consultation Requested: 02/24/241855
Date/Time Consultation Performed: 02/24/2024 191
Requesting Provider: Gera
Performing Provider: Reynold
Reason for Consultation: obstructing right ureteral stone + sepsis
Medical History
History of Present Illness
68-year-old female with right pelvic kidney and history of kidney stones presents to the ED for a week of cold sweats, nausea and vomiting 3 times over 24 hours. She reports feeling exhausted and pain radiating from RLQ down her leg.
07/2023 LEFT ureteral calculus + urosepsis --> OR by Dr Malik
prior stone requiring surgery '20 years ago'
Past Medical History
Past Medical History: Other (HTN and Other (hyperlipidemia, pelvic organ prolapse (managed w/ pessary), rUTIs)
Past Surgical History: Orthopedic
Allergies/Home Medications
Allergies
Allergy/AdvReac Type Severity Reaction Status Date / Time
sulfamethoxazole Allergy dizzy Verified 02/24/24 13:44
[From Bactrim]
trimethoprim [From Bactrim] Allergy dizzy Verified 02/24/24 13:44
Home Medications
�Medication �Instructions �Recorded �Confirmed �Type
calcium carbonate 600 mg-vitamin 1 ea PO BID Supplement 11/12/11 02/24/24 History
D3 5 mcg (200 unit) capsule
(Calcium 600 + D(3))
flaxseed oil 1,000 mg capsule 1,000 mg PO QPM Supplement 11/12/11 02/24/24 History
simvastatin 20 mg tablet 20 mg PO QPM High Cholesterol 11/12/11 02/24/24 History
Lactobac no.2-Bifidobac no.1-S. 1 cap PO DAILY Supplement 08/05/23 02/24/24 History
thermo 112.5 billion cell capsule
(Visbiome)
ascorbic acid (vitamin C) 500 mg 500 mg PO BID Supplement 08/05/23 02/24/24 History
tablet (Vitamin C With Bety Hips)
aspirin 81 mg tablet,delayed 81 mg PO QPM Blood Clot 08/05/23 02/24/24 History
release Prevention/Tx
darifenacin 15 mg tablet,extended 15 mg PO QPM Urinary Issue 08/05/23 02/24/24 History
release 24 hr
estradiol 0.01% (0.1 mg/gram) 1 g vaginal TUSA Hormonal Agent 08/05/23 02/24/24 History
vaginal cream
glucosamine-chondroitin 500 mg-400 1 tab PO QPM Supplement 08/05/23 02/24/24 History
mg tablet (Cosamin DS)
hydrochlorothiazide 50 mg tablet 50 mg PO DAILY Blood Pressure 08/05/23 02/24/24 History
therapeutic multivitamin 1 tab PO DAILY Supplement 08/05/23 02/24/24 History
diphenhydramine HCl 50 mg capsule 50 mg PO HS 02/24/24 02/24/24 History
(Un[employer]om SleepGels)
docusate sodium 100 mg capsule 100 mg PO DAILY PRN constipation 02/24/24 02/24/24 History
ibuprofen 125 mg-acetaminophen 250 2 tab PO Q6H mild pain 02/24/24 02/24/24 History
mg tablet (Dual Action Pain
Reliever)
polyethylene glycol 3350 17 gram 17 g PO ONCE 02/24/24 02/24/24 History
oral powder packet (Miralax)
Physical Exam
Physical Exam
adult female
General: No Apparent Distress
Respiratory: Non Labored Respirations
GI: Tender (right flank and RLQ)
Skin: Warm
Neuro: Awake, Alert and Oriented
Psych: Calm
Assessment / Plan
-
Right ureteral stone: 7 mm, obstructing
Urosepsis
emergently to OR to alleviate obstruction by placement of a right ureteral stent
Data Reviewed
-
CT Scan: Image personally visualized and interpreted (Right pelvic kidney with hydroureterectasis to 7 mm distal stone [artifact from hip hardware] with copious right retroperitoneal fluid; pessary in vagina)
Old Records: Reviewed
== END ==
LOC: WDC 14:37
PROVIDERS: ATTENDING PHYSICIAN Internal Medicine
DX: Z13.820 Encounter for screening for osteoporosis (principal); Z12.31 Encounter for screening mammogram for malignant neoplasm of breast; Z78.0 Asymptomatic menopausal state; M85.89 Other specified disorders of bone density and structure, multiple sites
CPT/HCPCS: 77063; 77067; 77080

== ENCOUNTER 2025-05-31 10:37 | Emergency (ER) | payer OTHER, SELFPAY ==
[2025-05-31 11:02] VITALS: BP 153/78
[2025-05-31 11:24] LABS: Hematocrit 38.4 % (37.0-47.0); Hemoglobin 13.2 g/dL (12.0-16.0); Mean Corp Hgb Conc. 34.4 g/dL (33.0-37.0); Mean Corpuscular Volume 93.0 fL (81.0-99.0); Nucleated Red Blood Cells % 0 %; Platelet Count 191 10^3/uL (130-400); Red Cell Dist. Width 12.5 % (11.5-14.5)
[2025-05-31 11:34] LABS: INR 1.18; PT 15.3 Sec (11.4-14.6)
[2025-05-31 11:36] LABS: ALT (SGPT) 20 U/L (0-35); AST (SGOT) 23 U/L (14-36); Albumin 4.3 g/dl (3.5-5.0); Alkaline Phosphatase 89 U/L (38-126); Blood Urea Nitrogen 17 mg/dl (7-17); Calcium 9.6 mg/dl (8.4-10.2); Carbon Dioxide 25 mmol/L (22-30); Chloride 108 mmol/L (98-107); Glucose 100 mg/dl (70-99); Potassium 5.0 mmol/L (3.5-5.1); Sodium 139 mmol/L (135-145); Total Protein 7.0 g/dl (6.3-8.2); eGFR > 60.00
--- NOTE | 2025-05-31 13:23 | ED.MUSCINJ ---
HPI-Injury
General
Chief Complaint: Fall
Source: patient
Exam Limitations: none
Time Seen by Provider: 05/31/25 13:01
History of Present Illness-Injury
Initial Injury comments:
69-year-old female on Lucy presents for evaluation of either vaginal or urinary bleeding starting 3 days ago after a fall she sustained off of her horse. She denies any significant pain. She has a pessary for her bladder prolapse. She states
every now and then she gets some spotting from her pessary but this is different. No abdominal pain. No chest pain lightheadedness or shortness of breath. No fevers.
Past History
Past History
ED Past Medical History: HTN
ED Past Surgical History: Orthopedic (3 months post hip fracture) and Other (bladder surgery)
Social History
Living: alone
Phy Exam
Physical Exam
Physical Exam:
General: Well-appearing female no acute distress
HEENT: Normocephalic atraumatic
Heart: Regular rate and rhythm
Lungs: Clear no wheeze
Abdomen is soft nontender nondistended
exam: No active bleeding noted. No obvious signs of trauma of the external genitalia.
Injury Course
Orders/Labs/Results
Orders:
Orders
05/31/25 11:12
Type+Screen Urgent
Complete Blood Count/With Diff Urgent
Comprehensive Metabolic Panel Urgent
Prothrombin Time Urgent
05/31/25 13:22
CT Abd/pelvis W Iv Cont Urgent
Comment:
Reason For Exam: fall, vaginal bleeding
05/31/25 15:51
Urinalysis Reflex To Culture Urgent
Date Specimen was Collected: 05/31/25
Time Specimen was Collected: 15:43
Urine Microscopic Reflex Cult Urgent
Urine Culture Urgent
CAYETANO Source: U
Specimen Description:
Date Specimen was Collected: 05/31/25
Time Specimen was Collected: 15:43
05/31/25 16:24
0.9% Sodium Chloride 1000 ml [Nss] 1,000 ml IV BOLUS
US Pelvis W Transvag Combined Urgent
Comment:
Reason For Exam: bleeding
Abnormal Lab Results
05/31/25 05/31/25
11:12 15:51
RBC 4.13 L 10^6/uL
(4.20-5.40)
MCH 32.0 H pg
(27.0-31.0)
MPV 10.5 H fL
(7.4-10.4)
PT 15.3 H Sec
(11.4-14.6)
Chloride 108 H mmol/L
(98-107)
Glucose 100 H mg/dl
(70-99)
Ur Occult Blood Reflex 4+ A
(Negative)
Leukocyte Esterase Rfl 1+ A
(Negative)
Urine RBC 80-90 A /HPF
(0-2)
Urine Bacteria (Reflex) Few A
(Negative)
Urine Albumin (Reflex) 3+ A
(Neg - Trace)
05/31/25 11:12
05/31/25 11:12
MDM/Problems Addressed
Differential Diagnosis Includes:
Patient with vaginal bleeding none noted on exam following a injury off of a horse. She is on Eliquis. Abdomen exam benign but given the bleeding order CT of the pelvis. Labs pending. She is not anemic. Hemoglobin is 13.2
CT of the pelvis and abdomen was negative for acute traumatic injury but there is a thickened endometrium. Ultrasound was recommended. Pelvic ultrasound is pending
*Pulse Oximetry
SaO2: 98
Oxygen Mode of Delivery: Room air
Patient hypoxic: no
*Critical Care Note
Total Time (30-74mins, 75-104mins- exclusive of procedures): Not Applicable
Update Note
Update Note:
Ultrasound of pelvis pending but anticipate patient will likely need to follow-up with gynecology as an outpatient for evaluate thickened endometrium
ED Attending Note
-
Portions of this chart may have been created with voice recognition software.� Occasional wrong word or��sound alike� substitutions may have occurred due to the inherent limitations of voice recognition software.
Discharge Plan
Departure
Patient Disposition: Home (Routine Discharge)
Date of Disposition: 05/31/25
Time of Disposition: 18:47
Patient with high blood pressure during this ER visit?: No
Condition: Good
Covid-19: Not Applicable
Discharge Problem:
Abnormal vaginal bleeding
Instructions: Bleeding After Menopause
Prescriptions:
No Action
flaxseed oil 1,000 MG capsule
1,000 mg PO QPM
Calcium 600 + D(3) 1 EACH capsule
1 ea PO BID
estradiol 0.01 % (0.1 mg/gram) Cream
1 g VAGINAL TUSA
darifenacin 15 mg Tablet Extended Release 24 Hr
15 mg PO QPM
therapeutic multivitamin Tablet
1 tab PO DAILY
ascorbic acid (vitamin C) [Vitamin C With Bety Hips] 500 mg Tablet
500 mg PO BID
glucosamine-chondroitin [Cosamin DS] 500-400 mg Tablet
1 tab PO QPM
Visbiome 112.5 billion cell Capsule
1 cap PO DAILY
diphenhydramine HCl [Unisom SleepGels] 50 mg Capsule
50 mg PO HS
polyethylene glycol 3350 [Miralax] 17 gram Powder In Packet
17 g PO ONCE
docusate sodium 100 mg Capsule
100 mg PO DAILY PRN (Reason: constipation)
amoxicillin 500 mg capsule
1,000 mg PO Q8H Qty: 48 0RF
Eliquis 5 mg Tablet
5 mg PO BID Qty: 60 0RF
atorvastatin 10 mg Tablet
10 mg PO QPM Qty: 30 0RF
diltiazem HCl 180 mg Capsule,Extended Release 24hr
180 mg PO BID Qty: 60 0RF
hydrocortisone acetate 25 mg Suppository
25 mg HI HS Qty: 30 0RF
ondansetron HCl 4 mg tablet
4 mg PO Q8H PRN (Reason: nausea and vomiting) 5 Days Qty: 10 0RF
Referrals:
Renee Washburn MD [Active, Gynecology]
Referral Note: Call on Tuesday to schedule your appointment.
Hipolito Hernandez MD [Family Provider, Internal Medicine]
Activity Restrictions/Additional Instructions:
Please follow-up with gynecology to further evaluate your vaginal bleeding. Return if worse otherwise
Interventions
Interventions:
*Risk Screen - Suicide Last Done: 05/31/25 11:02
*General Assessment Last Done: 05/31/25 11:02
*Neglect/Abuse Screening Last Done: 05/31/25 13:00
*Nursing Disposition Last Done: 05/31/25 18:57
ED-Musculoskeletal Assessment Last Done: 05/31/25 13:00
ED- Neurological Assessment Last Done: 05/31/25 13:00
ED-Skin Assessment Last Done: 05/31/25 13:00
Discharge Date and Time
Discharge Date/Time: 05/31/25 19:06
Print Language: KAZAKH
[2025-05-31 14:00] VITALS: BP 142/87
[2025-05-31 16:00] VITALS: BP 148/87
[2025-05-31 16:30] LABS: Urine Character Slightly Cloudy (Clear)
[2025-05-31] MEDS: NSS 1000 IV (16:45)
[2025-05-31 17:11] LABS: Urine Red Blood Cell 80-90 /HPF (0-2); Urine Squamous Cell 0-2 /LPF (Few); Urine White Cell 0-2 /HPF (0-5)
== END 2025-05-31 19:06 | disposition home or self-care (01) ==
LOC: EMR 10:37
PROVIDERS: Emergency Medicine; Physician Assistant; EMERGENCY PHYSICIAN Emergency Medicine; FAMILY PHYSICIAN Internal Medicine
DX: N93.9 Abnormal uterine and vaginal bleeding, unspecified (principal); I10 Essential (primary) hypertension; Z79.01 Long term (current) use of anticoagulants; Z96.641 Presence of right artificial hip joint
CPT/HCPCS: 99284; 96360; 74177; 76830; 76856; 80053; 81003; 81015; 85025; 85610; 86850; 86900; 86901; 87086; Q9967

== ENCOUNTER → 2025-06-14 15:01 | Outpatient (REF) | payer OTHER, SELFPAY | LOC: WDC 15:01 | PROVIDERS: ATTENDING PHYSICIAN Internal Medicine | DX: Z12.31 Encounter for screening mammogram for malignant neoplasm of breast (principal) | CPT/HCPCS: 77063; 77067 ==

== ENCOUNTER 2025-09-17 15:22 | Inpatient (IN) | payer OTHER, SELFPAY ==
[2025-09-17] VITALS (27 sets, daily range): BP systolic 94–154; BP diastolic 55–102; BMI 38.6; BMI 38.7; BMI 38.1
--- NOTE | 2025-09-17 11:36 | ED.GENMED ---
History of Present Illness
<Eric King PA-C - Last Filed: 09/17/25 14:28>
General
Chief Complaint: Chest Pain
Time Seen by Provider: 09/17/25 11:17
History of Present Illness
History of Present Illness:
Patient is a 70-year-old female with past medical history of atrial fibrillation on Eliquis, hypertension, hyperlipidemia, von Willebrand's disease, anxiety, and history of endometrial cancer currently on chemotherapy following with oncology at
[facility] with last session yesterday, here today for evaluation of shortness of breath that has been occurring over the past couple of weeks. Symptoms are worsened with exertion and walking around. She also reports more recent onset of chest pain
and feeling like her heart is racing again this morning when she bent over to pick something up. She also reports aching in her left upper extremity. No vomiting. She has edema to her lower extremities but this has been going on for quite some
time. No lower extremity pain. No vomiting. She was evaluated by her oncology team yesterday and they ordered an outpatient CAT scan which patient has not had yet.
Past History
<Eric King PA-C - Last Filed: 09/17/25 14:28>
Past History
ED Past Medical History: HTN
ED Past Surgical History: Orthopedic (3 months post hip fracture) and Other (bladder surgery)
Social History
Living: alone
Review of Systems
<Eric King PA-C - Last Filed: 09/17/25 14:28>
Review of Systems
All Other Systems: ROS reviewed and negative except as documented in HPI and ROS
Phy Exam
<Eric King PA-C - Last Filed: 09/17/25 14:28>
Physical Exam
Physical Exam:
GENERAL: Alert , in no apparent distress
EYE: No injection
NECK: Supple
ENT: o/p clr, mmm.
CARDIAC: Tachycardic rate, irregular rhythm
LUNGS: Clear breath sounds bilaterally, no acute respiratory distress, no wheezes/rales/rhonchi
NEUROLOGICAL: Alert and oriented, no focal neuro deficits
SKIN: Warm and dry, skin intact.
MUSCULOSKELETAL: No edema, well perfused.
PSYCH: Normal and appropriate interaction.
Scores
<Eric King PA-C - Last Filed: 09/17/25 14:28>
Heart Score for Chest Pain Patients
STEMI patient?: No
History: Moderately Suspicious
ECG: Nonspecific Repolarization
Age: >/= 65 years
Risk Factors: >/= 3 Risk Factors or History of CAD
Troponin: </= Normal Limit
Heart Score for Chest Pain Patients: 6
Heart Score Risk: 20.3% MACE over next 6 weeks
Course
<Eric King PA-C - Last Filed: 09/17/25 14:28>
Orders/Labs/Results
Orders:
Orders
09/17/25 10:51
EKG [Electrocardiogram (*1)] Urgent
Reason for Study: Chest Pain
EKG- Treatment ONCE
09/17/25 11:40
CT Chest PE Study Urgent
Comment:
Reason For Exam: chest pain/shortness of breath
09/17/25 11:46
Basic Metabolic Panel Urgent
Complete Blood Count/With Diff Urgent
Magnesium Urgent
NT-proBNP Urgent
Phosphorus Urgent
TSH Reflex To Free T4 Urgent
Troponin I Urgent
Diltiazem HCl [Cardizem] 15 mg IV NOW STA
09/17/25 11:53
0.9% Sodium Chloride 500 ml [Nss] 500 ml IV BOLUS
09/17/25 12:30
Diltiazem 125 mg/125 ml Nss [Cardizem] 125 mg in 125 ml IV PER PROTOCOL
Initial dose in mg/hr, then titrate:: 5
Titrate to keep:: Heart rate 80-100 bpm
Titrate by mg/hr:: 5 mg/hr
Frequency of titrations (minutes):: 15
Maximum dose in mg/hr:: 5
Abnormal Lab Results
09/17/25
11:46
RBC 3.90 L 10^6/uL
(4.20-5.40)
Hct 35.1 L %
(37.0-47.0)
Absolute Lymphs (auto) 0.7 L 10^3/uL
(1.2-3.4)
Neutrophils % 85.1 H %
(42.2-75.2)
Lymphocytes % 10.2 L %
(20.5-51.1)
Chloride 109 H mmol/L
(98-107)
BUN 19 H mg/dl
(7-17)
Glucose 148 H mg/dl
(70-99)
09/17/25 11:46
09/17/25 11:46
Vital Signs
Initial and Last Documented VS:
Initial Vital Signs
Temp Pulse Resp BP Pulse Ox
97.7 F 74 20 154/102 98
09/17/25 10:55 09/17/25 10:55 09/17/25 10:55 09/17/25 10:55 09/17/25 10:55
Last Documented Vital Signs
Temp Pulse Resp BP Pulse Ox
97.5 F 128 19 123/75 98
09/17/25 11:12 09/17/25 13:15 09/17/25 13:15 09/17/25 13:15 09/17/25 13:15
Barbaralt;Dhiraj Barajas, DO - Last Filed: 09/17/25 13:53>
Orders/Labs/Results
Orders:
Orders
09/17/25 10:51
EKG [Electrocardiogram (*1)] Urgent
Reason for Study: Chest Pain
EKG- Treatment ONCE
09/17/25 11:40
CT Chest PE Study Urgent
Comment:
Reason For Exam: chest pain/shortness of breath
09/17/25 11:46
Basic Metabolic Panel Urgent
Complete Blood Count/With Diff Urgent
Magnesium Urgent
NT-proBNP Urgent
Phosphorus Urgent
TSH Reflex To Free T4 Urgent
Troponin I Urgent
Diltiazem HCl [Cardizem] 15 mg IV NOW STA
09/17/25 11:53
0.9% Sodium Chloride 500 ml [Nss] 500 ml IV BOLUS
09/17/25 12:30
Diltiazem 125 mg/125 ml Nss [Cardizem] 125 mg in 125 ml IV PER PROTOCOL
Initial dose in mg/hr, then titrate:: 5
Titrate to keep:: Heart rate 80-100 bpm
Titrate by mg/hr:: 5 mg/hr
Frequency of titrations (minutes):: 15
Maximum dose in mg/hr:: 5
Abnormal Lab Results
09/17/25
11:46
RBC 3.90 L 10^6/uL
(4.20-5.40)
Hct 35.1 L %
(37.0-47.0)
Absolute Lymphs (auto) 0.7 L 10^3/uL
(1.2-3.4)
Neutrophils % 85.1 H %
(42.2-75.2)
Lymphocytes % 10.2 L %
(20.5-51.1)
Chloride 109 H mmol/L
(98-107)
BUN 19 H mg/dl
(7-17)
Glucose 148 H mg/dl
(70-99)
09/17/25 11:46
09/17/25 11:46
Vital Signs
Initial and Last Documented VS:
Initial Vital Signs
Temp Pulse Resp BP Pulse Ox
97.7 F 74 20 154/102 98
09/17/25 10:55 09/17/25 10:55 09/17/25 10:55 09/17/25 10:55 09/17/25 10:55
Last Documented Vital Signs
Temp Pulse Resp BP Pulse Ox
97.5 F 128 19 123/75 98
09/17/25 11:12 09/17/25 13:15 09/17/25 13:15 09/17/25 13:15 09/17/25 13:15
<Eric King PA-C - Last Filed: 09/17/25 14:28>
MDM/Problems Addressed
Differential Diagnosis Includes:
Patient is a 70-year-old female with past medical history of atrial fibrillation on Eliquis, hypertension, hyperlipidemia, von Willebrand's disease, anxiety, and history of endometrial cancer currently on chemotherapy following with oncology at
[facility] with last session yesterday, here today for evaluation of shortness of breath and chest pain. Patient appears well. She is moderately tachycardic to the 130s to 140s. She was also hypertensive however blood pressure is improving.
Examination remarkable for a fast heart rate that is noted to be irregular in rhythm. We will obtain a cardiac workup. Will obtain CT PE study. Will monitor.
09/17/2025 14:19: Screening labs grossly within normal limits/without significant acute abnormalities. CT PE study negative for acute findings. EKG does reveal A-fib with RVR with ST depression. Case was discussed with ED attending, Dr. Barajas,
who evaluated patient at bedside. Patient was started on a Cardizem drip. Bolus was not provided as the patient had low blood pressure. Patient monitored without significant improvement in heart rate. Will admit patient to medicine for further
testing evaluation. Will increase Cardizem drip. Patient will need cardiology consultation. Stable for discharge. All questions answered.
<Eric King PA-C - Last Filed: 09/17/25 14:28>
*Pulse Oximetry
SaO2: 96
Oxygen Mode of Delivery: Room air
Patient hypoxic: no
*Critical Care Note
Total Time (30-74mins, 75-104mins- exclusive of procedures): Not Applicable
ED Attending Note
<Eric King PA-C - Last Filed: 09/17/25 14:28>
-
Portions of this chart may have been created with voice recognition software.� Occasional wrong word or��sound alike� substitutions may have occurred due to the inherent limitations of voice recognition software.
<Dhiraj Barajas DO - Last Filed: 09/17/25 13:53>
ED Attending Note
Patient seen and examined by attending physician: Yes
I performed the substantive portion of visit, reviewed & personally made and approve the management plan that is documented in note by myself or AROLDO.: Yes
ED Attending Note:
Seen with PA examined independently 70-year-old female patient of Dr. Aurelio Fuentes sounds like PAF on Eliquis 1 prior cardioversion presents with shortness of breath, rapid A-fib, she lives alone she drove here, CT of the chest was
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
sedation
Discharge Plan
Departure
Patient Disposition: Admit
Date of Disposition: 09/17/25
Time of Disposition: 14:27
Admit to: Telemetry
Admit to doctor: Trenton Qureshi
Presentation/result/management discussed w/ accepting MD/DO: Hospitalist
Patient with high blood pressure during this ER visit?: Yes
Condition: Fair
Discharge Problem:
Atrial fibrillation with rapid ventricular response, Acute dyspnea, Chest pain
Prescriptions:
No Action
flaxseed oil 1,000 MG capsule
1,000 mg PO QPM
calcium carbonate-vitamin D3 [Calcium 600 + D(3)] 1 EACH capsule
1 ea PO QPM
estradiol 0.01 % (0.1 mg/gram) Cream
1 g VAGINAL TUSA
darifenacin 15 mg Tablet Extended Release 24 Hr
15 mg PO QPM
therapeutic multivitamin Tablet
1 tab PO DAILY
ascorbic acid (vitamin C) [Vitamin C With Bety Hips] 500 mg Tablet
500 mg PO BID
glucosamine-chondroitin [Cosamin DS] 500-400 mg Tablet
1 tab PO QPM
Visbiome 112.5 billion cell Capsule
1 cap PO DAILY
Eliquis 5 mg Tablet
5 mg PO BID Qty: 60 0RF
atorvastatin 10 mg Tablet
10 mg PO QPM Qty: 30 0RF
sennosides [senna] 8.6 mg Tablet
8.6 mg PO BID PRN (Reason: constipation)
metoprolol succinate 50 mg tablet extended release 24 hr
50 mg PO BID
olanzapine 5 mg Tablet
5 mg PO HSPRN PRN (Reason: 5 days post chemo)
doxylamine succinate 25 mg Tablet
25 mg PO HS PRN (Reason: insomnia)
paclitaxel 6 mg/mL Concentrate
1 mg IV . DIRECTED
carboplatin 150 mg Recon Soln
1 mg IV . DIRECTED
ondansetron HCl 4 mg tablet
8 mg PO Q8H PRN (Reason: nausea and vomiting)
Referrals:
Hipolito Hernandez MD [Family Provider, Internal Medicine]
Interventions
Interventions:
*Risk Screen - Suicide Last Done: 09/17/25 10:55
*General Assessment Last Done: 09/17/25 10:55
*Neglect/Abuse Screening Last Done: 09/17/25 10:55
*ED COVID-19 Vaccine History Last Done: 09/17/25 11:12
*ED Influenza Vaccine History Last Done: 09/17/25 11:12
[facility] Risk Assessment Tool Last Done: 09/17/25 11:12
ED- Cardiac Assessment Last Done: 09/17/25 11:12
Discharge Date and Time
Print Language: AZERI
[2025-09-17 11:55] LABS: Hematocrit 35.1 % (37.0-47.0); Hemoglobin 12.0 g/dL (12.0-16.0); Mean Corp Hgb Conc. 34.2 g/dL (33.0-37.0); Mean Corpuscular Volume 90.0 fL (81.0-99.0); Nucleated Red Blood Cells % 0 %; Platelet Count 167 10^3/uL (130-400); Red Cell Dist. Width 12.9 % (11.5-14.5)
[2025-09-17] MEDS: NSS 500 IV (12:10)
[2025-09-17 12:11] LABS: Blood Urea Nitrogen 19 mg/dl (7-17); Calcium 8.9 mg/dl (8.4-10.2); Carbon Dioxide 22 mmol/L (22-30); Chloride 109 mmol/L (98-107); Estimated Creatinine Clearance 80 ml/min; Glucose 148 mg/dl (70-99); Magnesium 1.8 mg/dl (1.6-2.3); Potassium 3.9 mmol/L (3.5-5.1); Sodium 137 mmol/L (135-145); eGFR > 60.00
[2025-09-17 12:22] LABS: Troponin I < 0.012 ng/ml
[2025-09-17] MEDS: CARDIZEM 125 IV (12:49)
--- NOTE | 2025-09-17 14:26 | HPS.HSE ---
Addendum entered and electronically signed by Trenton Qureshi MD 09/17/25 15:49:
This is an addendum to the H&P written by Sonia Berrios on 09/17/2025. �Patient seen and examined independently with INSURANCE UNDERWRITING ASSISTANT.
70-year-old female past medical history of endometrial cancer on chemotherapy status post chemotherapy yesterday, paroxysmal atrial fibrillation on Eliquis, NSVT, right ureteral stone status post right ureteral stent, hypertension, hyperlipidemia,
obesity, presenting with shortness of breath with exertion, chest pain radiating to left arm for few days, palpitations today. �Dizziness.
Vital signs show tachycardia up to 132.
EKG shows atrial fibrillation with RVR up to 140.
Labs unremarkable. �Troponin negative. �Cardiac BNP 517. �CT PE unremarkable.
Patient with A-fib with RVR. �Was given IV fluids and started on Cardizem drip. �Echocardiogram. �Cardiology consulted.
Original Note:
Family Physician
-
Family Physician: Grabiel Hernandez
Chief Complaint
-
sob,chest pain, palpitation
History of Present Illness
70-year-old female with past medical history of atrial fibrillation on Eliquis, hypertension, hyperlipidemia, anxiety, and history of endometrial cancer currently on chemotherapy following with oncology at [place] with last session yesterday, here
today for evaluation of shortness of breath that has been occurring over the past couple of weeks. Symptoms are worsened with exertion and walking around. She also reports more recent onset of chest pain which radiates to her left arm for past
few days. today she bent over to pick something from the floor and felt palpitation and her heart was racing. she felt dizzy as she stood up.she complained of TERAN. denied fever,chills,cough, congestion. denied abdominal pain,n,v,d. denied dysuria or
hematuria. she has chronic LE edema.
upon arrival atrial fib with RVR initated on cardizem drip. admitting for further management.
Medical History
Past Medical History
Past Medical History: Reports Other
Additional Past Medical History:
Hemorrhoids,cervical spine arthritis, ganglion cyst, osteoarthritis, osteopenia, HLD, NSVT, HTN, PAF,enodmeterial cancer, uterine prolapse, overactive bladder, anxiety,
Past Surgical History: Reports Other
Additional Past Surgical History:
bladdre suspension, femur repair, right total hip replacement, right ureteroscopy, cysto with stent placement and stone extraction,
Social History
Tobacco: Non-smoker
Alcohol: None
Drug: None
Family History
Family History: Not pertinent
Allergies / Home Medications
Allergies reflects when Allergies were last updated in [facility].
Home Medications with original date entered in [facility]
Allergy/Medication List:
Allergies
Allergy/AdvReac Type Severity Reaction Status Date / Time
sulfamethoxazole (From Allergy dizzy Verified 09/17/25 10:59
Bactrim)
trimethoprim (From Bactrim) Allergy dizzy Verified 09/17/25 10:59
Home Medications
calcium 600 mg (as carbonate)-vitamin D3 5 mcg (200 unit) capsule (Calcium 600 + D(3)) 1 ea PO QPM Supplement 11/12/11
flaxseed oil 1,000 mg capsule 1,000 mg PO QPM Supplement 11/12/11
Lactobac no.2-Bifidobac no.1-S. thermo 112.5 billion cell capsule (Visbiome) 1 cap PO DAILY Supplement 08/05/23
ascorbic acid (vitamin C) 500 mg tablet (Vitamin C With Bety Hips) 500 mg PO BID Supplement 08/05/23
darifenacin 15 mg tablet,extended release 24 hr 15 mg PO QPM Urinary Issue 08/05/23
estradiol 0.01% (0.1 mg/gram) vaginal cream 1 g vaginal TUSA Hormonal Agent 08/05/23
glucosamine-chondroitin 500 mg-400 mg tablet (Cosamin DS) 1 tab PO QPM Supplement 08/05/23
therapeutic multivitamin 1 tab PO DAILY Supplement 08/05/23
apixaban 5 mg tablet (Eliquis) 5 mg PO BID #60 tabs 03/02/24
atorvastatin 10 mg tablet 10 mg PO QPM #30 tabs 03/02/24
carboplatin 150 mg intravenous solution 1 mg IV . DIRECTED 09/17/25
doxylamine succinate 25 mg tablet 25 mg PO HS PRN insomnia 09/17/25
metoprolol succinate 50 mg tablet,extended release 24 hr 50 mg PO BID 09/17/25
olanzapine 5 mg tablet 5 mg PO HSPRN PRN 5 days post chemo 09/17/25
ondansetron HCl 4 mg tablet 8 mg PO Q8H PRN nausea and vomiting 09/17/25
paclitaxel 6 mg/mL concentrate,intravenous 1 mg IV . DIRECTED Cancer 09/17/25
sennosides 8.6 mg tablet (senna) 8.6 mg PO BID PRN constipation 09/17/25
Review of Systems
-
Constitutional: Reports No Symptoms
EENT: Reports No Symptoms
Respiratory: Reports No Symptoms
Cardiac: Reports Chest Pain and Palpitations
Abdomen/GI: Reports No Symptoms
: Reports No Symptoms
Musculoskeletal: Reports No Symptoms
Skin: Reports No Symptoms
Neurological: Reports Dizzy and Headache
Endocrine: Reports No Symptoms
Hematologic/Lymphatic: Reports No Symptoms
Psych: Reports No Symptoms
Physical Exam
Vital Signs
Vital Signs
Temp Pulse Resp BP Pulse Ox
97.5 F 128 19 123/75 98
09/17/25 11:12 09/17/25 13:15 09/17/25 13:15 09/17/25 13:15 09/17/25 13:15
Physical Exam
General: Well Developed, Well Nourished and No Apparent Distress
HEENT: NormoCephalic, Moist mucous membranes and Atraumatic
Respiratory: Clear
Cardiac: S1/S2, Irregular Rhythm and Tachycardia; No Murmur or Rub
GI: Soft, Non Tender, Non Distended and Normal Bowel Sounds; No Organomegaly
Rectal: Deferred by Provider
Musculoskeletal: No Clubbing, No Cyanosis and Other (b/l LE edema)
Skin: No Rash
Neuro: AO x 3 and Nonfocal/grossly intact
Psych: Calm
Laboratory Results
-
09/17/25 11:46
09/17/25 11:46
Laboratory Results
Troponin I < 0.012 ng/ml 09/17/25 11:46
Data Reviewed
-
Lab Data: Labs Reviewed by me
Impression/Plan
-
# A-fib with RVR
- CT PE with no acute findings
- EKG with A-fib with RVR with ST depression
- Cardizem drip continued
- Cardiology consulted
- Eliquis continued
-metoprolol continued
# Essential hypertension/ hyperlipidemia
-statin continued
# Hide of endometrial cancer
- On chemotherapy
-olanzapine and Zofran continued
#overactive bladder
-darifenacin continued
#DVT prophylaxis
-eliquis
#CODE status
-DNR
--- NOTE | 2025-09-17 15:55 | CON.CAR ---
Addendum entered and electronically signed by Stanford Wan MD 09/17/25 17:18:
I reviewed and agree with the note by MORGAN Greene and it accurately reflects our care.
I saw and evaluated the patient, and I provided the substantive portion of the medical decision making. My assessment and plan is below:
70-year-old female with paroxysmal atrial fibrillation on apixaban and endometrial cancer undergoing chemotherapy who presents with palpitations and associated chest discomfort/left arm pain. Symptoms started this morning when she bent down to pick
something up. In the past she has been asymptomatic from her atrial fibrillation. This is on the background of dyspnea on exertion for the past 3-4 weeks. She is currently not experiencing palpitations or chest discomfort at rest. She does still
have some pain in her left forearm. She is now on a diltiazem drip and had rate controlled atrial fibrillation with heart rates in the 100s.
Physical exam: Irregular rate/rhythm, no murmurs, bibasilar lung crackles, chronic nonpitting lower extremity edema
Labs notable for troponin <0.012, proBNP 517. CT chest without pulmonary edema or pleural effusions.
ECG: A-fib with RVR, HR 140 bpm, lateral ST depressions
KASSANDRA February 2024: LVEF 60-65%, mild MR, no JESUS thrombus
Paroxysmal atrial fibrillation: Patient has been compliant with Eliquis and denies any missed doses in the past 3 weeks. We will proceed to synchronized cardioversion tomorrow. Please keep n.p.o. past midnight. In the meantime, continue diltiazem
and metoprolol for rate control.
Chest/left arm pain: First troponin negative. ECG with lateral ST depressions. She is currently chest pain-free. May be due to demand in the setting of RVR. Trend troponins.
Original Note:
Consultation
Consultation Request
Date/Time Consultation Requested: 09/17/2025 15:20
Date/Time Consultation Performed: 09/17/2025 15:55
Requesting Provider: MORGAN Tirado
Performing Provider: MORGAN Greene for Dr. Wan
Reason for Consultation: Atrial fibrillation with rapid ventricular response
Medical History
-
Chief Complaint: Chest pain
History of Present Illness:
Elsie Centeno is a 70-year-old female (known to Dr. Carey, her primary eyelet riveter), with paroxysmal atrial fibrillation (on apixaban), NSVT, hypertension, hypercholesterolemia, and endometrial cancer status post chemotherapy yesterday who
presented to the emergency department with a chief complaint of chest pain. She endorses associated shortness of breath. She was found to be in atrial fibrillation with rapid ventricular response. Her chest discomfort started at approximately
8:30 AM. She bent down to pick something up and she felt a zapping sensation in her chest. She then felt short of breath and had some discomfort in her left forearm. She then developed a headache. Her shortness of breath has improved. Her left
forearm discomfort is gone. She still has a headache.
Past Medical History
Past Medical History: Arrhythmias (Paroxysmal atrial fibrillation, NSVT), Cancer (Endometrial), HTN and Hypercholesterolemia
Past Surgical History: Gynecological, Orthopedic and Urological
Social History
Tobacco: Non-Smoker
Personal: Single
Employment: Retired
Family History
Family History: Reviewed & Not Pertinent
Allergies / Home Medications
Allergy/AdvReac Type Severity Reaction Status Date / Time
sulfamethoxazole (From Allergy dizzy Verified 09/17/25 10:59
Bactrim)
trimethoprim (From Bactrim) Allergy dizzy Verified 09/17/25 10:59
�Medication �Instructions �Recorded �Confirmed �Type
calcium 600 mg (as 1 ea PO QPM Supplement 11/12/11 09/17/25 History
carbonate)-vitamin D3 5 mcg (200
unit) capsule (Calcium 600 + D(3))
flaxseed oil 1,000 mg capsule 1,000 mg PO QPM Supplement 11/12/11 09/17/25 History
Lactobac no.2-Bifidobac no.1-S. 1 cap PO DAILY Supplement 08/05/23 09/17/25 History
thermo 112.5 billion cell capsule
(Visbiome)
ascorbic acid (vitamin C) 500 mg 500 mg PO BID Supplement 08/05/23 09/17/25 History
tablet (Vitamin C With Bety Hips)
darifenacin 15 mg tablet,extended 15 mg PO QPM Urinary Issue 08/05/23 09/17/25 History
release 24 hr
estradiol 0.01% (0.1 mg/gram) 1 g vaginal TUSA Hormonal Agent 08/05/23 09/17/25 History
vaginal cream
glucosamine-chondroitin 500 mg-400 1 tab PO QPM Supplement 08/05/23 09/17/25 History
mg tablet (Cosamin DS)
therapeutic multivitamin 1 tab PO DAILY Supplement 08/05/23 09/17/25 History
apixaban 5 mg tablet (Eliquis) 5 mg PO BID #60 tabs 03/02/24 09/17/25 Rx
atorvastatin 10 mg tablet 10 mg PO QPM #30 tabs 03/02/24 09/17/25 Rx
carboplatin 150 mg intravenous 1 mg IV . DIRECTED 09/17/25 09/17/25 History
solution
doxylamine succinate 25 mg tablet 25 mg PO HS PRN insomnia 09/17/25 09/17/25 History
metoprolol succinate 50 mg 50 mg PO BID 09/17/25 09/17/25 History
tablet,extended release 24 hr
olanzapine 5 mg tablet 5 mg PO HSPRN PRN 5 days post chemo 09/17/25 09/17/25 History
ondansetron HCl 4 mg tablet 8 mg PO Q8H PRN nausea and vomiting 09/17/25 09/17/25 History
paclitaxel 6 mg/mL 1 mg IV . DIRECTED Cancer 09/17/25 09/17/25 History
concentrate,intravenous
sennosides 8.6 mg tablet (senna) 8.6 mg PO BID PRN constipation 09/17/25 09/17/25 History
Review of Systems
-
History Source: Patient
All other systems: Negative unless noted
Constitutional: Fatigue
EENT: No Symptoms
Respiratory: No Symptoms
Cardiac: Palpitations
Abdomen/GI: No Symptoms
: No Symptoms
Musculoskeletal: No Symptoms
Skin: No Symptoms
Neurological: No Symptoms
Endocrine: No Symptoms
Hematologic/Lymphatic: No Symptoms
Physical Exam
Vital Signs
Temp Pulse Resp BP Pulse Ox
97.5 F 114 18 127/87 95
09/17/25 11:12 09/17/25 14:29 09/17/25 14:29 09/17/25 14:29 09/17/25 14:29
Lab Results
09/17/25 11:46
09/17/25 11:46
Troponin I < 0.012 ng/ml 09/17/25 11:46
Ndg-A-[id number] Pept 517 pg/ml 09/17/25 11:46
Physical Exam
General: Well Developed, Well Nourished, No Apparent Distress and Comfortable
HEENT: Normocephalic, Anicteric and Moist Mucous Membranes
Respiratory: Clear and Non Labored Respirations
Cardiac: S1/S2 and Irregular Rhythm; Negative Peripheral Edema
Breast: Deferred by me
GI: Soft, Non Tender, Non Distended and Normal Bowel Sounds
Rectal: Deferred by Provider
Genito-urinary: No Costovertebral Tender
Musculoskeletal: No Clubbing and No Cyanosis
Skin: Warm and Dry
Neuro: AO x 3
Hematologic/Lymphatic: No Lymphadenopathy
Psych: Calm
Impression / Plan
-
I/P: 70F with paroxysmal atrial fibrillation (on apixaban), NSVT, hypertension, hypercholesterolemia, and endometrial cancer status post chemotherapy yesterday who presented to the emergency department with a chief complaint of chest pain. Found to
be in RVR.
Primary eyelet riveter: Dr. Carey
Chest pain
- With associated shortness of breath, CT PE negative, proBNP 517
- Troponin <0.012, trend
Atrial fibrillation with rapid ventricular response
- She had edema with diltiazem po, continue metoprolol
- Rate control with diltiazem drip, rhythm control with DCCV in a.m.
- Oral Anticoagulation: Apixaban 5 mg twice daily, she denies missed doses and abnormal bleeding
- [id number]: Score 3 (HTN, age 65-74, female gender)
- DCCV tomorrow, prior cardioversion she had pretty significant nausea after the procedure
Hypertension
- Follow BP with rate control
Hyperglycemia, HgbA1c pending
NSVT, no ischemia on nuclear stress 2023, continue beta-allison
Hypercholesterolemia, with an intermediate ASCVD 10-year risk, most recent LDL 90, on atorvastatin 10 mg
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 Fuentes ([facility])
Data Reviewed
-
EKG: Report Reviewed by me
Medical Tests (Nuc Med, Echo etc): Report Reviewed by me
Labs: Labs Reviewed by me
Old Records: Reviewed
[2025-09-17] MEDS: LASIX 20 MG IV (17:33)
[2025-09-17] MEDS: TYLENOL 650 MG PO (17:33)
--- NOTE | 2025-09-17 17:45 | EDRN ---
this RN called the receiving IVU nurse Ericka RN and gave verbal report, this RN also tubed up paper report
[2025-09-17 18:22] LABS: Troponin I 0.035 ng/ml
--- NOTE | 2025-09-17 18:34 | EDRN ---
still waiting for IVU bed to be ready, second troponin came back elevated, this RN notified Dr. Qureshi
--- NOTE | 2025-09-17 18:35 | EDRN ---
per Dr. Qureshi, the pt is to be NPO
[2025-09-17 22:08] LABS: Troponin I 0.053 ng/ml
[2025-09-17] MEDS: ELIQUIS 5 MG PO (22:29)
[2025-09-17] MEDS: ZYPREXA 5 MG PO (22:29)
[2025-09-17] MEDS: TOPROL XL 50 MG PO (22:29)
[2025-09-17] MEDS: LIPITOR 10 MG PO (22:29)
[2025-09-17] MEDS: OSCAL 500 + D 500 MG PO (22:29)
--- NOTE | 2025-09-17 23:41 | PTCARENOTE ---
Pt. rec'd from ED into room 2255 this shift AAOx3, VSS, A-fib rate 60's-80's on the monitor. Cardizem gtt initially running at 10 mg/hr, titrated down to 5 mg/hr per protocol; current HR 82 (still A-fib). Pt. denies any chest pain or discomfort,
some NOLAN assessed with ambulation; RA pulse ox 98%. Pt. ambulates with assist x 1, generally weak, fall precautions initiated. Medications and plan of care reviewed with pt. (CV in AM) understanding verbalized. Pt. resting quietly.
[2025-09-18] VITALS (16 sets, daily range): BP systolic 96–134; BP diastolic 60–92; BMI 38.1
[2025-09-18] MEDS: CARDIZEM 125 IV (02:34)
[2025-09-18 02:36] LABS: Hematocrit 37.2 % (37.0-47.0); Hemoglobin 12.7 g/dL (12.0-16.0); Mean Corp Hgb Conc. 34.1 g/dL (33.0-37.0); Mean Corpuscular Volume 92.8 fL (81.0-99.0); Nucleated Red Blood Cells % 0 %; Platelet Count 147 10^3/uL (130-400); Red Cell Dist. Width 13.2 % (11.5-14.5)
[2025-09-18 03:10] LABS: Blood Urea Nitrogen 17 mg/dl (7-17); Calcium 9.2 mg/dl (8.4-10.2); Carbon Dioxide 27 mmol/L (22-30); Chloride 106 mmol/L (98-107); Estimated Creatinine Clearance 69 ml/min; Glucose 96 mg/dl (70-99); Magnesium 1.8 mg/dl (1.6-2.3); Potassium 3.8 mmol/L (3.5-5.1); Sodium 138 mmol/L (135-145); eGFR > 60.00
[2025-09-18 03:15] LABS: Troponin I 0.053 ng/ml
[2025-09-18 08:04] LABS: Glycohemoglobin (HgbA1c) 6.2 % (4.0-5.9)
[2025-09-18] MEDS: ELIQUIS 5 MG PO ×2 (09:09→19:26)
[2025-09-18] MEDS: TOPROL XL 50 MG PO ×2 (09:09→19:26)
--- NOTE | 2025-09-18 10:55 | PTCARENOTE ---
Assumed care of pt from prev nsg shift; Pt AAOx3 w/no c/o CP or SOB. Pt's VSS w/HR in the 80's & BP 102/68 this AM. Pt is Afib at a controlled rate on telemetry monitoring. Pt w/IV Cardizem drip infusing as ordered through patent IV line. Pt NPO for
prob CV today & until seen by Cardiology. Pt on Chemo precautions due to recent chemotherapy treatment on Tuesday. Pt w/call house within reach. Plan of care ongoing.
--- NOTE | 2025-09-18 12:33 | PTCARENOTE ---
Report given to Tristan in the cathodic protection technician, patient taken for her CV.
--- NOTE | 2025-09-18 12:34 | CM ---
Spoke with patient in room, previously independent at baseline. Lives in 1 story condo with 4 steps to enter. No DME or DC needs at this time. Plan to return home when medically cleared.
--- NOTE | 2025-09-18 12:37 | W.PN.CD ---
Today's Communication / Plan
-
DCCV today
Impression / Plan
-
I/P: 70F with paroxysmal atrial fibrillation (on apixaban), NSVT, hypertension, hypercholesterolemia, and endometrial cancer status post chemotherapy yesterday who presented to the emergency department with a chief complaint of chest pain. Found to
be in RVR.
Primary bingo manager: Dr. Carey
Chest pain: resolved
- likely due to A fib with RVR, and acute non-ischemic myocardial injury (TnI 0.053) noted in this setting
-TTE unremarkable
Atrial fibrillation with rapid ventricular response
- She had edema with diltiazem; continue metoprolol XL 50mg bid
- Oral Anticoagulation: Apixaban 5 mg twice daily, she denies missed doses and abnormal bleeding
- [id number]: Score 3 (HTN, age 65-74, female gender)
- DCCV today
Hypertension
- BP stable
NSVT, no ischemia on nuclear stress 2023, continue beta-allison
Hypercholesterolemia, with an intermediate ASCVD 10-year risk, most recent LDL 90, on atorvastatin 10 mg
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 Fuentes ([facility])
Physical Exam
Vital Signs/Labs
Vital Signs
Temp Pulse Resp BP Pulse Ox
98.6 F 92 18 106/74 97
09/18/25 11:01 09/18/25 11:04 09/18/25 11:01 09/18/25 11:04 09/18/25 11:04
09/17/25 09/18/25 09/19/25
06:59 06:59 06:59
Actual Weight 94.5 kg
09/18/25 02:25
09/18/25 02:25
Magnesium 1.8 mg/dl (1.6-2.3) 09/18/25 02:25
09/17/25
11:46
Tsf-B-Qpfesgqzvol Pept 517
LAB Results
09/17/25 09/17/25 09/17/25
11:46 17:36 21:37
Troponin I < 0.012 0.035 H* D 0.053 H* D
09/18/25
02:25
Troponin I 0.053 H*
Physical Exam
Constitutional: No acute distress and Comfortable
EENT: Moist mucous membranes
Cardiovascular: Pedal edema is absent, JVD pressure is normal, Systolic murmur absent and Rhythm/rate is irregular
Respiratory: Respiratory effort normal and Lungs clear to auscul.
Neuro/Psych: AO x 3
Data Reviewed
-
Date of Service: September 18, 2025
Labs: Labs Reviewed by me
--- NOTE | 2025-09-18 12:57 | W.PN.HOSP.TC ---
Addendum entered and electronically signed by Galen Green MD 09/22/25 15:21:
Acute non ischemic myocardial injury
Original Note:
Today's Communication/Plan
-
Assessment / Plan
Assessment / Plan
Unfortunately, has been off the floor and have not been able to evaluate
A-fib with RVR
Continue Eliquis
Continue diltiazem drip and metoprolol
Cardiology plans for KASSANDRA with cardioversion
Chest pain resolved
Per cardiology TTE unremarkable
Type II non-VA with troponin of 0.053
Likely secondary to A-fib with RVR rate induced
Anticipated Discharge: 24 - 48 hours
Subjective/Interval History
-
Date of Service: September 18, 2025
No new complaints. No acute overnight events.
Objective Data
-
Labs:
Laboratory Results
09/18/25
02:25
WBC 7.5
Hgb 12.7
Hct 37.2
Plt Count 147
Sodium 138
Potassium 3.8
Chloride 106
Carbon Dioxide 27
BUN 17
Creatinine 0.8
Glucose 96
Calcium 9.2
Vital Signs:
Vital Signs
Temp Pulse Resp BP Pulse Ox
98.6 F 92 18 106/74 97
09/18/25 11:01 09/18/25 11:04 09/18/25 11:01 09/18/25 11:04 09/18/25 11:04
I&O
09/17/25 09/18/25 09/19/25
06:59 06:59 06:59
Output Total 550 / 550
Balance -550 / -550
--- NOTE | 2025-09-18 13:38 | W.DCSUMMARY ---
Discharge Summary
Discharge Data
Date of Admission: 09/17/25
Date of Discharge: 09/18/25
-
Pending Results: No
Hospital Course
70-year-old female with past medical history of atrial fibrillation on Eliquis, hypertension, hyperlipidemia, anxiety, and history of endometrial cancer currently on chemotherapy following with oncology at [place]
Presented with shortness of breath associated with exertion and chest discomfort radiating to the left arm with palpitations. On arrival was found to have a heart rate of 132 EKG demonstrating atrial fibrillation with RVR but rates into the 140s.
Troponin initially negative however it did peak at 0.053. CT PE study was unremarkable with a BNP of 517. Cardiology was consulted and was started on a Cardizem drip along with IV fluids. 2D echocardiogram completed. As remained in atrial
fibrillation with RVR on Cardizem drip cardiology recommended KASSANDRA with DCCV that was successful and now is back in sinus rhythm. Continue metoprolol twice a day along with apixaban 5 mg twice a day. Will need continued outpatient cardiology
follow-up and PCP follow-up.
2d echo
SUMMARY
1. Normal biventricular size and systolic function. LVEF estimated 55%. Mild concentric LVH.
2. Indeterminant diastolic function because of atrial fibrillation.
3. Mild concentric LVH.
4. No significant valvular heart disease.
5. Mild left atrial enlargement.
6. No significant change from echocardiogram dated 02/27/2024.
CTPE
IMPRESSION:
1. Limited by significant respiratory motion artifact. No central or segmental pulmonary embolus.
2. Hypoaerated lungs without consolidation.
3. Bilateral low-attenuation thyroid nodules. This could be further evaluated with follow-up thyroid ultrasound.
Seen and examined on day of discharge which was 09/18/2025. No new complaints. No acute overnight events.
I was able to evaluate her in the afternoon post KASSANDRA direct cardioversion. Per cardiology via [place] text can be discharge if no acute issues present
NAD
Scleral Anicteric
MMM
No JVD
CTABL
RRR, S1/S2
Soft, NT, ND, BS+
Warm, Dry
AAOx3
Calm
More than 30 minutes spent in discharge including
Final examination of the patient
Summarizing hospital stay
Instructions for continuing care to all relevant caregivers
Preparation of discharge records, prescriptions, and referral forms
Total time spent (in minutes): 33mins
Discharge Plan
-
Patient Disposition: Home (Routine Discharge)
Discharge Diagnosis/Procedures: Afib RVR
Type 2 NMI
Condition: Good
Diet: As tolerated
Activity Restrictions/Additional Instructions:
Presented with shortness of breath associated with exertion and chest discomfort radiating to the left arm with palpitations. On arrival was found to have a heart rate of 132 EKG demonstrating atrial fibrillation with RVR but rates into the 140s.
Troponin initially negative however it did peak at 0.053. CT PE study was unremarkable with a BNP of 517. Cardiology was consulted and was started on a Cardizem drip along with IV fluids. 2D echocardiogram completed. As remained in atrial
fibrillation with RVR on Cardizem drip cardiology recommended KASSANDRA with DCCV that was successful and now is back in sinus rhythm. Continue metoprolol twice a day along with apixaban 5 mg twice a day. Will need continued outpatient cardiology
follow-up and PCP follow-up.
2d echo
SUMMARY
1. Normal biventricular size and systolic function. LVEF estimated 55%. Mild concentric LVH.
2. Indeterminant diastolic function because of atrial fibrillation.
3. Mild concentric LVH.
4. No significant valvular heart disease.
5. Mild left atrial enlargement.
6. No significant change from echocardiogram dated 02/27/2024.
CTPE
IMPRESSION:
1. Limited by significant respiratory motion artifact. No central or segmental pulmonary embolus.
2. Hypoaerated lungs without consolidation.
3. Bilateral low-attenuation thyroid nodules. This could be further evaluated with follow-up thyroid ultrasound.
Referrals:
Hipolito Hernandez MD [Family Provider, Internal Medicine]
Rin Fernandez CRNP [Specified Professional Personl, Cardiology] - 10/02/25 4:20 pm
Prescriptions:
Continued
flaxseed oil 1,000 MG capsule
1,000 mg PO QPM
calcium carbonate-vitamin D3 [Calcium 600 + D(3)] 1 EACH capsule
1 ea PO QPM
estradiol 0.01 % (0.1 mg/gram) Cream
1 g VAGINAL TUSA
darifenacin 15 mg Tablet Extended Release 24 Hr
15 mg PO QPM
therapeutic multivitamin Tablet
1 tab PO DAILY
ascorbic acid (vitamin C) [Vitamin C With Bety Hips] 500 mg Tablet
500 mg PO BID
glucosamine-chondroitin [Cosamin DS] 500-400 mg Tablet
1 tab PO QPM
Visbiome 112.5 billion cell Capsule
1 cap PO DAILY
Eliquis 5 mg Tablet
5 mg PO BID Qty: 60 0RF
atorvastatin 10 mg Tablet
10 mg PO QPM Qty: 30 0RF
sennosides [senna] 8.6 mg Tablet
8.6 mg PO BID PRN (Reason: constipation)
metoprolol succinate 50 mg tablet extended release 24 hr
50 mg PO BID
olanzapine 5 mg Tablet
5 mg PO HSPRN PRN (Reason: 5 days post chemo)
doxylamine succinate 25 mg Tablet
25 mg PO HS PRN (Reason: insomnia)
paclitaxel 6 mg/mL Concentrate
1 mg IV . DIRECTED
carboplatin 150 mg Recon Soln
1 mg IV . DIRECTED
ondansetron HCl 4 mg tablet
8 mg PO Q8H PRN (Reason: nausea and vomiting)
Discharge Orders:
Discharge Patient (As Directed); Ordered 09/18/25
Ordered By: Galen Green
Care Plan Goals
Care Plan Goals:
Problem: Readiness for enhanced knowledge related to diagnosis and treatment plan
Goal: Understand your diagnosis and treatment plan needs, including medications if applicable.
Instructions: Know your diagnosis, underlying causes and treatment plan options, including medications if applicable. Consult with your health care team to learn about your diagnosis and treatment plan, including medications if applicable.
Discharge Date and Time
Print Language: [place]
--- NOTE | 2025-09-18 16:28 | PN.CDI ---
CDI
- -
CDI:
Physician Documentation Request
Admit Date: 09/17/25 15:22
Dear Doctor Peter,
Clinical Indicators:
Patient admitted with chest pain and A fib with RVR.
09/18 Cardiology PN, 'Chest pain: resolved- likely due to A fib with RVR, and acute non-ischemic myocardial injury'
09/18 PN, 'Type II non-KS Likely secondary to A-fib with RVR rate induced'
Troponin trend:
09/17/25 09/17/25 09/18/25
17:36 21:37 02:25
Troponin I 0.035 H* D 0.053 H* D 0.053 H*
Due to potentially conflicting documentation, please clarify the etiology of the troponin elevation:
Acute non ischemic myocardial injury
Type II KS
Other, please specify
Use of terms such as suspected, likely, concern for, or probable (associated with a specific diagnosis that is being evaluated, monitored, or treated as if it exists) are acceptable and can be coded in the inpatient setting, when documented at the
time of discharge.
Thank you,
JOYCE Lara RN
CDI Specialist
available via tiger text
Please use your independent medical judgment in providing your response.
[2025-09-18] MEDS: DETROL LA 4 MG PO (17:52)
[2025-09-18] MEDS: LIPITOR 10 MG PO (17:52)
[2025-09-18] MEDS: FLUSH (NSS) 1 FLUSH IV (17:53)
[2025-09-18] MEDS: OSCAL 500 + D 500 MG PO (17:53)
[2025-09-18] MEDS: NSS 500 IV (17:59)
[2025-09-18] MEDS: ZYPREXA 5 MG PO (22:36)
--- NOTE | 2025-09-19 00:31 | PTCARENOTE ---
Tele remains SR w/ occasional PACs, HR in the 60-70's. Pt denies any discomfort or SOB. Patient c/o dizziness at times, BP stable. IV fluids infusing per order. Pt ambulates w/ standby assist, fall risk precautions maintained. Pt aware of POC, call
house within reach.
[2025-09-19 03:15] VITALS: BP 124/70
[2025-09-19 03:25] VITALS: BMI 38.3
[2025-09-19 07:47] VITALS: BP 131/90
[2025-09-19] MEDS: TOPROL XL 50 MG PO (08:15)
[2025-09-19] MEDS: ELIQUIS 5 MG PO (08:15)
[2025-09-19] MEDS: MIRALAX 17 GRAMS PO (08:19)
--- NOTE | 2025-09-19 08:31 | W.PN.CD ---
Today's Communication / Plan
-
continue metoprolol XL: increased dose of Toprol XL 75mg bid
continue eliquis 5mg bid
please call us back with additional questions; follow up with us added to chart
Impression / Plan
-
I/P: 70F with paroxysmal atrial fibrillation (on apixaban), NSVT, hypertension, hypercholesterolemia, and endometrial cancer status post chemotherapy yesterday who presented to the emergency department with a chief complaint of chest pain. Found to
be in RVR.
Primary brand executive: Dr. Carey
Chest pain: resolved
- likely due to A fib with RVR, and acute non-ischemic myocardial injury (TnI 0.053) noted in this setting
-TTE unremarkable
Atrial fibrillation with rapid ventricular response: back in sinus after DCCV on 09/18
- She had edema with diltiazem; continue metoprolol XL: increased dose of Toprol XL 75mg bid
- Oral Anticoagulation: Apixaban 5 mg twice daily, she denies missed doses and abnormal bleeding
- [id number]: Score 3 (HTN, age 65-74, female gender)
- if Afib recurs, will consider admission for tikosyn vs sotalol load
Hypertension
- BP stable
NSVT, no ischemia on nuclear stress 2023, continue beta-allison, 6 beats noted on tele this admission
Hypercholesterolemia, with an intermediate ASCVD 10-year risk, most recent LDL 90, on atorvastatin 10 mg
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 Fuentes ([facility])
Physical Exam
Vital Signs/Labs
Vital Signs
Temp Pulse Resp BP Pulse Ox
98 F 65 20 124/70 98
09/19/25 07:48 09/19/25 06:00 09/19/25 07:48 09/19/25 03:15 09/19/25 07:48
09/18/25 09/19/25 09/20/25
06:59 06:59 06:59
Actual Weight 94.5 kg 94.9 kg
09/18/25 02:25
09/18/25 02:25
Magnesium 1.8 mg/dl (1.6-2.3) 09/18/25 02:25
09/17/25
11:46
Ooy-I-Rmxyflnrxbk Pept 517
LAB Results
09/17/25 09/17/25 09/17/25
11:46 17:36 21:37
Troponin I < 0.012 0.035 H* D 0.053 H* D
09/18/25
02:25
Troponin I 0.053 H*
Physical Exam
Constitutional: No acute distress and Comfortable
EENT: Moist mucous membranes
Cardiovascular: Rhythm & rate is regular, JVD pressure is normal, Systolic murmur absent and Pedal edema present
Respiratory: Respiratory effort normal and Lungs clear to auscul.
Neuro/Psych: AO x 3
Data Reviewed
-
Date of Service: September 19, 2025
EKG: Other (Tele: SR 60s-70s; brief A fib, 6 beats NSVT)
[2025-09-19 09:07] VITALS: BP 111/73
[2025-09-19] MEDS: TOPROL XL 25 MG PO (09:07)
--- NOTE | 2025-09-19 14:39 | W.DCSUMMARY ---
Discharge Summary
Discharge Data
Date of Admission: 09/17/25
Date of Discharge: 09/19/25
-
Pending Results: No
Hospital Course
70-year-old female with past medical history of atrial fibrillation on Eliquis, hypertension, hyperlipidemia, anxiety, and history of endometrial cancer currently on chemotherapy following with oncology at [facility]
Presented with shortness of breath associated with exertion and chest discomfort radiating to the left arm with palpitations. On arrival was found to have a heart rate of 132 EKG demonstrating atrial fibrillation with RVR but rates into the 140s.
Troponin initially negative however it did peak at 0.053. CT PE study was unremarkable with a BNP of 517. Cardiology was consulted and was started on a Cardizem drip along with IV fluids. 2D echocardiogram completed. As remained in atrial
fibrillation with RVR on Cardizem drip cardiology recommended KASSANDRA with DCCV that was successful and now is back in sinus rhythm. Continue metoprolol twice a day along with apixaban 5 mg twice a day. Will need continued outpatient cardiology
follow-up and PCP follow-up.
2d echo
SUMMARY
1. Normal biventricular size and systolic function. LVEF estimated 55%. Mild concentric LVH.
2. Indeterminant diastolic function because of atrial fibrillation.
3. Mild concentric LVH.
4. No significant valvular heart disease.
5. Mild left atrial enlargement.
6. No significant change from echocardiogram dated 02/27/2024.
CTPE
IMPRESSION:
1. Limited by significant respiratory motion artifact. No central or segmental pulmonary embolus.
2. Hypoaerated lungs without consolidation.
3. Bilateral low-attenuation thyroid nodules. This could be further evaluated with follow-up thyroid ultrasound.
Seen and examined on day of discharge which was 09/19/2025. No new complaints. No acute overnight events.
I was able to evaluate her in the afternoon post KASSANDRA direct cardioversion. Per cardiology via [place] text can be discharge if no acute issues present
09/18/2025 discharge was held due to ongoing dizziness
NAD
Scleral Anicteric
MMM
No JVD
CTABL
RRR, S1/S2
Soft, NT, ND, BS+
Warm, Dry
AAOx3
Calm
More than 30 minutes spent in discharge including
Final examination of the patient
Summarizing hospital stay
Instructions for continuing care to all relevant caregivers
Preparation of discharge records, prescriptions, and referral forms
Total time spent (in minutes): 33mins
Discharge Plan
-
Patient Disposition: Home (Routine Discharge)
Discharge Diagnosis/Procedures: Afib RVR
Type 2 NMI
Condition: Good
Diet: As tolerated
Activity Restrictions/Additional Instructions:
Presented with shortness of breath associated with exertion and chest discomfort radiating to the left arm with palpitations. On arrival was found to have a heart rate of 132 EKG demonstrating atrial fibrillation with RVR but rates into the 140s.
Troponin initially negative however it did peak at 0.053. CT PE study was unremarkable with a BNP of 517. Cardiology was consulted and was started on a Cardizem drip along with IV fluids. 2D echocardiogram completed. As remained in atrial
fibrillation with RVR on Cardizem drip cardiology recommended KASSANDRA with DCCV that was successful and now is back in sinus rhythm. Continue metoprolol twice a day along with apixaban 5 mg twice a day. Will need continued outpatient cardiology
follow-up and PCP follow-up.
2d echo
SUMMARY
1. Normal biventricular size and systolic function. LVEF estimated 55%. Mild concentric LVH.
2. Indeterminant diastolic function because of atrial fibrillation.
3. Mild concentric LVH.
4. No significant valvular heart disease.
5. Mild left atrial enlargement.
6. No significant change from echocardiogram dated 02/27/2024.
CTPE
IMPRESSION:
1. Limited by significant respiratory motion artifact. No central or segmental pulmonary embolus.
2. Hypoaerated lungs without consolidation.
3. Bilateral low-attenuation thyroid nodules. This could be further evaluated with follow-up thyroid ultrasound.
Referrals:
Hipolito Hernandez MD [Family Provider, Internal Medicine]
Rin Fernandez CRNP [Specified Professional Personl, Cardiology] - 10/02/25 4:20 pm
Prescriptions:
Continued
flaxseed oil 1,000 MG capsule
1,000 mg PO QPM
calcium carbonate-vitamin D3 [Calcium 600 + D(3)] 1 EACH capsule
1 ea PO QPM
estradiol 0.01 % (0.1 mg/gram) Cream
1 g VAGINAL TUSA
darifenacin 15 mg Tablet Extended Release 24 Hr
15 mg PO QPM
therapeutic multivitamin Tablet
1 tab PO DAILY
ascorbic acid (vitamin C) [Vitamin C With Bety Hips] 500 mg Tablet
500 mg PO BID
glucosamine-chondroitin [Cosamin DS] 500-400 mg Tablet
1 tab PO QPM
Visbiome 112.5 billion cell Capsule
1 cap PO DAILY
Eliquis 5 mg Tablet
5 mg PO BID Qty: 60 0RF
atorvastatin 10 mg Tablet
10 mg PO QPM Qty: 30 0RF
sennosides [senna] 8.6 mg Tablet
8.6 mg PO BID PRN (Reason: constipation)
metoprolol succinate 50 mg tablet extended release 24 hr
50 mg PO BID
olanzapine 5 mg Tablet
5 mg PO HSPRN PRN (Reason: 5 days post chemo)
doxylamine succinate 25 mg Tablet
25 mg PO HS PRN (Reason: insomnia)
paclitaxel 6 mg/mL Concentrate
1 mg IV . DIRECTED
carboplatin 150 mg Recon Soln
1 mg IV . DIRECTED
ondansetron HCl 4 mg tablet
8 mg PO Q8H PRN (Reason: nausea and vomiting)
Care Plan Goals
Care Plan Goals:
Problem: Readiness for enhanced knowledge related to diagnosis and treatment plan
Goal: Understand your diagnosis and treatment plan needs, including medications if applicable.
Instructions: Know your diagnosis, underlying causes and treatment plan options, including medications if applicable. Consult with your health care team to learn about your diagnosis and treatment plan, including medications if applicable.
Discharge Date and Time
Print Language: KAZAK[place]
--- NOTE | 2025-09-19 15:20 | PTCARENOTE ---
Pt ambulated in halls with supervsion, farhat well, no complaints. Discharge instructions reviewed with Pt , she expressed understanding.
[2025-09-19 19:18] LABS: Hepatitis C Antibody Negative (Negative)
== END 2025-09-19 14:05 | disposition home or self-care (01) | DRG 309 ==
LOC: IVU 15:22
PROVIDERS: Internal Medicine; Nurse Practitioner Gerontology; Physician Assistant; Registered Nurse; ADMITTING PHYSICIAN Hospitalist; ATTENDING PHYSICIAN Hospitalist; CONSULT PHYSICIAN Student in an Organized Health Care Education/Training Program; EMERGENCY PHYSICIAN Emergency Medicine; FAMILY PHYSICIAN Internal Medicine
PROC: 5A2204Z Restoration of Cardiac Rhythm, Single (ICD-10-PCS; 2025-09-18)
DX: I48.0 Paroxysmal atrial fibrillation (principal); D68.00 Von Willebrand disease, unspecified; I5A Non-ischemic myocardial injury (non-traumatic); I47.20 Ventricular tachycardia, unspecified; E78.00 Pure hypercholesterolemia, unspecified; I25.10 Atherosclerotic heart disease of native coronary artery without angina pectoris; I11.9 Hypertensive heart disease without heart failure; Z87.442 Personal history of urinary calculi; C54.1 Malignant neoplasm of endometrium; E66.9 Obesity, unspecified; Z88.2 Allergy status to sulfonamides; Z88.1 Allergy status to other antibiotic agents; Z79.01 Long term (current) use of anticoagulants; Z96.641 Presence of right artificial hip joint; E04.2 Nontoxic multinodular goiter; F41.9 Anxiety disorder, unspecified; M47.812 Spondylosis without myelopathy or radiculopathy, cervical region; M85.80 Other specified disorders of bone density and structure, unspecified site; Z66 Do not resuscitate
CPT/HCPCS: 71275; 80048; 83036; 83735; 83880; 84100; 84443; 84484; 85025; 86803; 92960; 93005; 93306; 96365; 96366; 99285; Q9967

== ENCOUNTER → 2025-10-08 10:22 | Outpatient (REF) | payer OTHER, SELFPAY | LOC: PET 10:22 | PROVIDERS: ATTENDING PHYSICIAN Nurse Practitioner Gerontology | DX: R06.02 Shortness of breath (principal); E66.01 Morbid (severe) obesity due to excess calories | CPT/HCPCS: 78431; A9555; J2785 ==

== ENCOUNTER → 2025-10-14 09:12 | Outpatient (REF) | payer OTHER, SELFPAY | LOC: HWRAD 09:12 | PROVIDERS: ATTENDING PHYSICIAN Internal Medicine | DX: E04.2 Nontoxic multinodular goiter (principal) | CPT/HCPCS: 76536 ==